=== PATIENT | female | born 1975 | race Caucasian/White ===

== ENCOUNTER 2017-05-20 19:17 | Emergency (ER) | payer MEDICAID ==
[~2017-05-20] VITALS: Ht 160 cm; Wt 88.0 kg
[~2017-05-20 19:17] MED LIST: ASPIR-TRIN325 MG PO; ATORVASTATIN CA80 MG PO; BACTRIM DS 8001 TAB PO; BISOPROLOL 5MG T5 MG PO; BUT/APAP/CAFF/C1 CAP PO; DILAUDID2 MG PO; DOCUSATE SODIU250 M1 PO; FLEXERIL10 MG PO; HUMALOG100 U/M1 SC; LEVOTHYROXIN0.125 MG PO; LIPITOR20 MG PO; LODINE200 MG PO; LOPRESSOR 25MG.25 M1 OR; METFORMIN 500M500 MG PO; NAPROSYN 500MG500 MG PO; NORCO 325 MG-101 TAB PO; ONDANSETRON4 M1 PO; PREDNISONE 20MG20 MG PO; PREVACID 30MG C30 M1 PO; PROCTOFOAM TP; REQUIP 1 MG TABL1 MG PO; TOPAMAX100 MG PO; ZANAFLEX4 MG NG
[2017-05-20] MEDS ORDERED: VITAMIN D50000 I1 PO (19:26)
[2017-05-20] MEDS ORDERED: LACTULOSE10 GM/153 PO (19:27)
[2017-05-20] MEDS ORDERED: PHENERGAN25 M3 PO (19:27)
[2017-05-20] MEDS ORDERED: VICODIN1 TAB PO (19:29)
[2017-05-20] MEDS ORDERED: LEVOTHYROXIN0.125 M1 PO (19:29)
[2017-05-20] MEDS ORDERED: DICLOFENAC SODI75 M2 PO (19:30)
[2017-05-20] MEDS ORDERED: GABAPENTIN 600600 MG PO (19:30)
[2017-05-20 19:34] LABS: LYMPH # 1.9 K/mm3 (0.7-4.5); LYMPH % 26.1 % (10-50.0)
[2017-05-20 19:44] LABS: HEMOGLOBIN 11.8 g/dL (12.2-16.2)
--- NOTE | 2017-05-20 19:50 | Emergency Room Report ---
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 STATES SHE TOOK VERAPAMIL ER 240 MG PO X 2 DAYS AND BISPROLOL 2.5 MG PO TODAY TRYIMG TO FET B/P DECREASED. 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 N Clinical Suspician of Infection? N Mental Status: 1 - Regular (Normal Baseline) Sepsis Risk:Low Sepsis Risk Have you (or family members/close friends) recently traveled outside the [place]? N If Yes, where/when: Have you had exposure to infectious disease within the past month? N TB? Other? Specify: Source patient, RN notes reviewed, RN/MD Exam Limitations no limitations Comment This is a 42-year-old female arriving to the emergency room with episode of chest pain, onset approximately 2 hours prior to arrival, described as pressure across anterior chest wall, associated with palpitations and shortness of breath, radiating to both shoulders.. Patient had a similar episode yesterday her receiving a phone call from elementary school social worker in relationship to her stepson. Patient has been very emotional since receiving this phone call, preoccupied with her blood pressure. Her chest pain yesterday was short-lived and resolved within minutes. Today it came back and it appears to be lasting longer. Patient she took her leftover blood pressure medications, Bisoprolol and Verapamil (which she is no longer on, at this time). Patient underwent the cardiac catheterization 2 years ago, no stents deployed, and was started on Crestor at that time. Today she is complaining with a headache and nausea as well. She has a history of chronic upper back pain as well as chronic neck pain, today presenting with RIGHT/LEFT shoulder pain as well. ALLERGIES Coded Allergies: No Known Allergies (11/05/16) Home Medications Active Scripts Aspirin (Aspir-Joslyn) 81 MG PO DAILY #15 ECT Prov: 05/12/15 Ondansetron Hydrochloride (Ondansetron Odt) 4 MG PO Q6HP PRN NAUSEA AND VOMITING #5 Ref 1 Prov: 11/07/16 Reported Medications Atorvastatin Calcium 80 MG PO DAILY #30 TIZANIDINE HCL (Zanaflex) 4 MG NG Q6HP PRN MUSCLE SPASMS ROPINIROLE HCL (Requip 1 Mg) 1 MG PO QHS Lansoprazole (Prevacid) 30 MG PO DAILY ERGOCALCIFEROL (VITAMIN D2) (Vitamin D2) 50,000 IUNITS PO DAILY #8 Lactulose 10 GM PO PRN PRN CONSTIPATION #450 PROMETHAZINE HCL (Phenergan 25MG Tab (Geq)) 25 MG PO Q6HP PRN N/V #30 Levothyroxine Sodium 0.125 MG PO DAILY #60 HYDROCODONE/ACETAMINOPHEN (Vicodin 5-300 MG Tablet) 1 TAB PO PRN PRN BACK PAIN Diclofenac Sodium 75 MG PO DAILY #60 Gabapentin (Gabapentin 600MG) 600 MG PO Q8 #120 (Earnest Biggs MD) Cardiac Chest Pain Chest pain indicative of cardiac No Timing/Duration this evening (Vincent Triplett MD) History Medical History General CAD? Yes Angina: Yes [place]: No Hypertension? Yes Hyperlipidemia? Yes CHF? No DVT? No PE? No COPD? Yes Asthma? Yes Anemia? Yes GERD? No Gastric ulcers? No GI Bleed? No Hernia? No Thyroid Problems? Yes Hypothyroidism? Yes CVA? No Seizures? Yes Diabetes? Yes Insulin Dependent: No Insulin Pump: No Home FSBS? Yes Renal Insuffiency? No End Stage Renal Disease? No UTI? Yes Stones? No BPH? No GB Disease: No Nephritic Syndrome? No Asplenia? No Hepatitis? No Sickle Cell Disease? No Arthritis? Yes Migraines? No Cataracts? No Glaucoma? No MRSA? Yes HIV? No TB? No Anxiety? Yes Depression? No Cancer? 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 LMP N/A Family History Family Hx Diabetes Yes CAD Yes Hypertension Yes Hyperlipidemia Yes Cancer Yes TB No Social History Smoking Hx Smoker: Current Every Day Smoker Tobacco: Yes Type Cigarettes Packs/day < 1 Pack Alcohol Alcohol: No (Earnest Biggs MD) Social History Drugs none (Vincent Triplett MD) Review of Systems All Other Systems Reviewed and Negative Cardiovascular chest pain, palpitations Psychiatric/Neurological headache (Earnest Biggs MD) Physical Exam Vital Signs Vital Signs Date Time Temp Pulse Resp B/P Pulse O2 O2 Flow FiO2 Ox Delivery Rate 05/20 2125 98.1 98 20 171/98 96 05/20 2056 98.1 72 20 143/95 97 05/20 1959 98.1 70 20 161/109 99 05/20 1957 20 05/20 1918 98.1 78 20 161/109 96 General Appearance normal appearance, WD/WN, no apparent distress Respiratory Status Yes: trachea midline, chest symmetrical, non tender chest. No: respiratory distress. Lung Sounds bilateral: normal breath sounds, lungs clear. Cardiovascular normal exam, regular rate/rhythm, no peripheral edema, no gallop, no JVD, no murmur, no rub, normal peripheral pulses Gastrointestinal normal bowel sounds, normal exam, non tender, soft, no organomegaly Extremities non-tender, normal range of motion, normal inspection Neurologic alert, campaign director II-XII nml as tested, normal exam, oriented x 3 Mental status normal mood/affect Skin intact, normal color, warm/dry (Earnest Biggs MD) Medical Decision Making LABS/Meds/Orders Pt receiving controlled substance in ED? No Comment 20:00-case signed out ot Dr Uziel brandon results and re-evaluation. Results/Orders Laboratory Tests 05/20/172119: Troponin I Pending 05/20/171919: Sodium 138, Potassium 3.7, Chloride 102, Carbon Dioxide 27, BUN 6 L, Creatinine 0.9, Estimated Creat Clear 112, Estimated GFR (MDRD) 68, Glucose 120 H, Calcium 9.3, Total Bilirubin 0.4, AST 34, ALT 52, Alkaline Phosphatase 114, Creatine Kinase 231 H, CK-MB (CK-2) Rel Index 0.4, CK and CKMB Interp 1.0, Troponin I < 0.02, B-Natriuretic Peptide 74, Total Protein 8.4 H, Albumin 4.0, Globulin 4.4 H, Albumin/Globulin Ratio 0.9 L, PT 10.7, INR 0.99, APTT 27.6, D-Dimer 645 *H, WBC 7.2, RBC 5.00, Hgb 11.8 L, Hct 39.9, MCV 79.7 L, RDW 18.1 H, Plt Count 273, MPV 9.9, Gran % 64.8, Gran # 4.7, Lymphocytes % 26.1, Monocytes % 5.0, Eosinophils % 3.3, Basophils % 0.8, Lymphocytes # 1.9, Monocytes # 0.4, Eosinophils # 0.2, Basophils # 0.1, PUBS MCHC 29.7 L, MCH 23.7 L Current Medication Orders Sig/Bakari Start time Last Medication Dose Route Stop Time Status Admin Ketorolac 30 MG ONCE ONE 05/20 2000 DC 05/20 Tromethamine IV 05/20 Ondansetron HCl 4 MG ONCE ONE 05/20 2000 DC 05/20 IV 05/20 Ketorolac 0 .STK-MED ONE 05/20 1954 DC Tromethamine .ROUTE Ondansetron HCl 0 .STK-MED ONE 05/20 1954 DC .ROUTE Aspirin 0 .STK-MED ONE 05/20 1937 DC .ROUTE Aspirin 325 MG ONCE ONE 05/20 1930 DC 05/20 PO 05/20 Nitroglycerin 0.4 MG [id number] PRN 05/20 1930 CAN SL Sodium Chloride 10 ML PRN PRN 05/20 1930 AC IV 05/21 1920 Orders Procedure Date/time Status TROPONIN I 05/20 2120 Active SERUM , QUAL 05/20 1921 Complete ELECTROCARDIOGRAM REQUEST 05/20 1920 Active CHEST-PORTABLE 05/20 1920 Active IV SALINE LOCK 05/20 1920 Active SALES AND SERVICE AGENT 05/20 1920 Active PARTIAL THROMBOPLASTIN TIME 05/20 1920 Complete PROTHROMBIN TIME 05/20 1920 Complete D-DIMER 05/20 1920 Complete COMPLETE METABOLIC PANEL 05/20 1920 Complete CBC WITH AUTO DIFF 05/20 1920 Complete CARDIAC ENZYMES 05/20 1920 Complete BRAIN NATRIURETIC PEPTIDE 05/20 1920 Complete CM/EKG CM/shearing shed hand Rhythm Normal Sinus Rhythm Rate 88 Ectopy No Comments No acute ischemic changes EKG rate, NSR, rhythm, no evid. of ischemic chgs, no ectopy, normal QRS, normal [place], normal EKG, no EKG for comparison, non-spec. ST/Twave chgs, ST elevation, ST depression, LBBB, RBBB, ectopy, abnormal Q waves XRAY/CT/US XRAY/CT/US XRAY chest XR interpretation by reviewed by me Xray Results no infiltrates, normal heart size, normal lung inflation andrez Comment No acute process (Earnest Biggs MD) Departure Departure Time of Disposition 1999 Clinical Impression Primary Impression: Chest pain Qualifiers: Chest pain type: unspecified Qualified Code: R07.9 - Chest pain, unspecified Condition STABLE Referrals DAIJA BARAHONA (Family) ED Critical Care Critical Care No (Earnest Biggs MD) Departure Disposition DC Home or Self Care(routine) Patient Instructions DI for Chest Pain Additional Instructions call pcp in am Discharge Counseling Counseled pt/family regarding diagnosis, test results, medications/RX, follow up needs (Vincent Triplett MD) at 2001 at 214
--- NOTE | 2017-05-20 19:50 | Emergency Room Report ---
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 STATES SHE TOOK VERAPAMIL ER 240 MG PO X 2 DAYS AND BISPROLOL 2.5 MG PO TODAY TRYIMG TO FET B/P DECREASED. 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 N Clinical Suspician of Infection? N Mental Status: 1 - Regular (Normal Baseline) Sepsis Risk:Low Sepsis Risk Have you (or family members/close friends) recently traveled outside the [place]? N If Yes, where/when: Have you had exposure to infectious disease within the past month? N TB? Other? Specify: Source patient, RN notes reviewed, RN/MD Exam Limitations no limitations Comment This is a 42-year-old female arriving to the emergency room with episode of chest pain, onset approximately 2 hours prior to arrival, described as pressure across anterior chest wall, associated with palpitations and shortness of breath, radiating to both shoulders.. Patient had a similar episode yesterday her receiving a phone call from social problems specialist in relationship to her stepson. Patient has been very emotional since receiving this phone call, preoccupied with her blood pressure. Her chest pain yesterday was short-lived and resolved within minutes. Today it came back and it appears to be lasting longer. Patient she took her leftover blood pressure medications, Bisoprolol and Verapamil (which she is no longer on, at this time). Patient underwent the cardiac catheterization 2 years ago, no stents deployed, and was started on Crestor at that time. Today she is complaining with a headache and nausea as well. She has a history of chronic upper back pain as well as chronic neck pain, today presenting with RIGHT/LEFT shoulder pain as well. ALLERGIES Coded Allergies: No Known Allergies (11/05/16) Home Medications Active Scripts Aspirin (Aspir-Joslyn) 81 MG PO DAILY #15 ECT Prov: 05/12/15 Ondansetron Hydrochloride (Ondansetron Odt) 4 MG PO Q6HP PRN NAUSEA AND VOMITING #5 Ref 1 Prov: 11/07/16 Reported Medications Atorvastatin Calcium 80 MG PO DAILY #30 TIZANIDINE HCL (Zanaflex) 4 MG NG Q6HP PRN MUSCLE SPASMS ROPINIROLE HCL (Requip 1 Mg) 1 MG PO QHS Lansoprazole (Prevacid) 30 MG PO DAILY ERGOCALCIFEROL (VITAMIN D2) (Vitamin D2) 50,000 IUNITS PO DAILY #8 Lactulose 10 GM PO PRN PRN CONSTIPATION #450 PROMETHAZINE HCL (Phenergan 25MG Tab (Geq)) 25 MG PO Q6HP PRN N/V #30 Levothyroxine Sodium 0.125 MG PO DAILY #60 HYDROCODONE/ACETAMINOPHEN (Vicodin 5-300 MG Tablet) 1 TAB PO PRN PRN BACK PAIN Diclofenac Sodium 75 MG PO DAILY #60 Gabapentin (Gabapentin 600MG) 600 MG PO Q8 #120 (Earnest Biggs MD) Cardiac Chest Pain Chest pain indicative of cardiac No Timing/Duration this evening (Vincent Triplett MD) History Medical History General CAD? Yes Angina: Yes [place]: No Hypertension? Yes Hyperlipidemia? Yes CHF? No DVT? No PE? No COPD? Yes Asthma? Yes Anemia? Yes GERD? No Gastric ulcers? No GI Bleed? No Hernia? No Thyroid Problems? Yes Hypothyroidism? Yes CVA? No Seizures? Yes Diabetes? Yes Insulin Dependent: No Insulin Pump: No Home FSBS? Yes Renal Insuffiency? No End Stage Renal Disease? No UTI? Yes Stones? No BPH? No GB Disease: No Nephritic Syndrome? No Asplenia? No Hepatitis? No Sickle Cell Disease? No Arthritis? Yes Migraines? No Cataracts? No Glaucoma? No MRSA? Yes HIV? No TB? No Anxiety? Yes Depression? No Cancer? 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 N/A Family History Family Hx Diabetes Yes CAD Yes Hypertension Yes Hyperlipidemia Yes Cancer Yes TB No Social History Smoking Hx Smoker: Current Every Day Smoker Tobacco: Yes Type Cigarettes Packs/day < 1 Pack Alcohol Alcohol: No (Earnest Biggs MD) Social History Drugs none (Vincent Triplett MD) Review of Systems All Other Systems Reviewed and Negative Cardiovascular chest pain, palpitations Psychiatric/Neurological headache (Earnest Biggs MD) Physical Exam Vital Signs Vital Signs Date Time Temp Pulse Resp B/P Pulse O2 O2 Flow FiO2 Ox Delivery Rate 05/20 2125 98.1 98 20 171/98 96 05/20 2056 98.1 72 20 143/95 97 05/20 1959 98.1 70 20 161/109 99 05/20 1957 20 05/20 1918 98.1 78 20 161/109 96 General Appearance normal appearance, WD/WN, no apparent distress Respiratory Status Yes: trachea midline, chest symmetrical, non tender chest. No: respiratory distress. Lung Sounds bilateral: normal breath sounds, lungs clear. Cardiovascular normal exam, regular rate/rhythm, no peripheral edema, no gallop, no JVD, no murmur, no rub, normal peripheral pulses Gastrointestinal normal bowel sounds, normal exam, non tender, soft, no organomegaly Extremities non-tender, normal range of motion, normal inspection Neurologic alert, newsroom intern II-XII nml as tested, normal exam, oriented x 3 Mental status normal mood/affect Skin intact, normal color, warm/dry (Earnest Biggs MD) Medical Decision Making LABS/Meds/Orders Pt receiving controlled substance in ED? No Comment 20:00-case signed out ot Dr Uziel brandon results and re-evaluation. Results/Orders Laboratory Tests 05/20/172119: Troponin I Pending 05/20/171919: Sodium 138, Potassium 3.7, Chloride 102, Carbon Dioxide 27, BUN 6 L, Creatinine 0.9, Estimated Creat Clear 112, Estimated GFR (MDRD) 68, Glucose 120 H, Calcium 9.3, Total Bilirubin 0.4, AST 34, ALT 52, Alkaline Phosphatase 114, Creatine Kinase 231 H, CK-MB (CK-2) Rel Index 0.4, CK and CKMB Interp 1.0, Troponin I < 0.02, B-Natriuretic Peptide 74, Total Protein 8.4 H, Albumin 4.0, Globulin 4.4 H, Albumin/Globulin Ratio 0.9 L, PT 10.7, INR 0.99, APTT 27.6, D-Dimer 645 *H, WBC 7.2, RBC 5.00, Hgb 11.8 L, Hct 39.9, MCV 79.7 L, RDW 18.1 H, Plt Count 273, MPV 9.9, Gran % 64.8, Gran # 4.7, Lymphocytes % 26.1, Monocytes % 5.0, Eosinophils % 3.3, Basophils % 0.8, Lymphocytes # 1.9, Monocytes # 0.4, Eosinophils # 0.2, Basophils # 0.1, PUBS MCHC 29.7 L, MCH 23.7 L Current Medication Orders Sig/Bakari Start time Last Medication Dose Route Stop Time Status Admin Ketorolac 30 MG ONCE ONE 05/20 2000 DC 05/20 Tromethamine IV 05/20 Ondansetron HCl 4 MG ONCE ONE 05/20 2000 DC 05/20 IV 05/20 Ketorolac 0 .STK-MED ONE 05/20 1954 DC Tromethamine .ROUTE Ondansetron HCl 0 .STK-MED ONE 05/20 1954 DC .ROUTE Aspirin 0 .STK-MED ONE 05/20 1937 DC .ROUTE Aspirin 325 MG ONCE ONE 05/20 1930 DC 05/20 PO 05/20 Nitroglycerin 0.4 MG [id number] PRN 05/20 1930 CAN SL Sodium Chloride 10 ML PRN PRN 05/20 1930 AC IV 05/21 1920 Orders Procedure Date/time Status TROPONIN I 05/20 2120 Active SERUM , QUAL 05/20 1921 Complete ELECTROCARDIOGRAM REQUEST 05/20 1920 Active CHEST-PORTABLE 05/20 1920 Active IV SALINE LOCK 05/20 1920 Active ENTRANCE GUARD 05/20 1920 Active PARTIAL THROMBOPLASTIN TIME 05/20 1920 Complete PROTHROMBIN TIME 05/20 1920 Complete D-DIMER 05/20 1920 Complete COMPLETE METABOLIC PANEL 05/20 1920 Complete CBC WITH AUTO DIFF 05/20 1920 Complete CARDIAC ENZYMES 05/20 1920 Complete BRAIN NATRIURETIC PEPTIDE 05/20 1920 Complete CM/EKG CM/automotive service technician Rhythm Normal Sinus Rhythm Rate 88 Ectopy No Comments No acute ischemic changes EKG rate, NSR, rhythm, no evid. of ischemic chgs, no ectopy, normal QRS, normal [place], normal EKG, no EKG for comparison, non-spec. ST/Twave chgs, ST elevation, ST depression, LBBB, RBBB, ectopy, abnormal Q waves XRAY/CT/US XRAY/CT/US XRAY chest XR interpretation by reviewed by me Xray Results no infiltrates, normal heart size, normal lung inflation andrez Comment No acute process (Earnest Biggs MD) Departure Departure Time of Disposition 1999 Clinical Impression Primary Impression: Chest pain Qualifiers: Chest pain type: unspecified Qualified Code: R07.9 - Chest pain, unspecified Condition STABLE Referrals DAIJA BARAHONA (Family) ED Critical Care Critical Care No (Earnest Biggs MD) Departure Disposition DC Home or Self Care(routine) Patient Instructions DI for Chest Pain Additional Instructions call pcp in am Discharge Counseling Counseled pt/family regarding diagnosis, test results, medications/RX, follow up needs (Vincent Triplett MD) at 2001 at 2146
[2017-05-20 19:52] LABS: BUN 6 mg/dL (7-18)
[2017-05-20 20:01] LABS: GFR (ESTIMATED) 68 ML/MIN (59-)
[2017-05-20 22:11] VITALS: BP 112/55
--- NOTE | 2017-05-21 05:32 | RADIOLOGY REPORT PS360 ---
CHEST-PORTABLE HISTORY: Chest pain pain ORDERING PHYSICIAN: Earnest Biggs MD PATIENT AGE: 42 years COMPARISON: 05/14/2015 FINDINGS: There is cardiomegaly without failure. There is increased density in the right lung base medially. While this could represent pericardial fat pad/summation artifact, one cannot exclude possibility of infiltrate/pneumonia. Upright PA and lateral chest may be of further value. No acute bony anomalies. IMPRESSION: 1. Cardiomegaly. 2. Possible right lower lobe infiltrate.
== END 2017-05-20 22:12 | disposition home or self-care (01) ==
LOC: ER 19:17
PROVIDERS: Emergency Medicine
DX: R07.9 Chest pain, unspecified (principal); I10 Essential (primary) hypertension; M54.6 Pain in thoracic spine; M54.2 Cervicalgia; I25.10 Atherosclerotic heart disease of native coronary artery without angina pectoris; E78.5 Hyperlipidemia, unspecified; E11.9 Type 2 diabetes mellitus without complications; Z72.0 Tobacco use; Z79.899 Other long term (current) drug therapy
CPT/HCPCS: J2405

== ENCOUNTER 2017-06-10 21:43 | Emergency (ER) | payer MEDICAID ==
[~2017-06-10] VITALS: Ht 160 cm; Wt 88.5 kg
[~2017-06-10 21:43] MED LIST changes: +DICLOFENAC SODI75 M2 PO; +GABAPENTIN 600600 MG PO; +LACTULOSE10 GM/153 PO; +LEVOTHYROXIN0.125 M1 PO; +PHENERGAN25 M3 PO; +VICODIN1 TAB PO; +VITAMIN D50000 I1 PO
--- NOTE | 2017-06-10 22:15 | Emergency Room Report ---
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 N Clinical Suspician of Infection? N Mental Status: 1 - Regular (Normal Baseline) Sepsis Risk:Low Sepsis Risk Have you (or family members/close friends) recently traveled outside the [place]? N If Yes, where/when: Have you had exposure to infectious disease within the past month? N TB? Other? Specify: Source patient, RN notes reviewed, old records Exam Limitations no limitations Comment pt with upper abd pain over the last few days with nausea but no melena or fever Cardiac Chest Pain Chest pain indicative of cardiac No Timing/Duration this evening Severity moderate ALLERGIES Coded Allergies: No Known Allergies (11/05/16) Home Medications Active Scripts Aspirin (Aspir-Joslyn) 81 MG PO DAILY #15 ECT Prov: 05/12/15 Ondansetron Hydrochloride (Ondansetron Odt) 4 MG PO Q6HP PRN NAUSEA AND VOMITING #5 Ref 1 Prov: 11/07/16 Reported Medications Atorvastatin Calcium 80 MG PO DAILY #30 TIZANIDINE HCL (Zanaflex) 4 MG NG Q6HP PRN MUSCLE SPASMS ROPINIROLE HCL (Requip 1 Mg) 1 MG PO QHS Lansoprazole (Prevacid) 30 MG PO DAILY ERGOCALCIFEROL (VITAMIN D2) (Vitamin D2) 50,000 IUNITS PO DAILY #8 Lactulose 10 GM PO PRN PRN CONSTIPATION #450 PROMETHAZINE HCL (Phenergan 25MG Tab (Geq)) 25 MG PO Q6HP PRN N/V #30 Levothyroxine Sodium 0.125 MG PO DAILY #60 HYDROCODONE/ACETAMINOPHEN (Vicodin 5-300 MG Tablet) 1 TAB PO PRN PRN BACK PAIN Diclofenac Sodium 75 MG PO DAILY #60 Gabapentin (Gabapentin 600MG) 600 MG PO Q8 #120 History Medical History General CAD? Yes Angina: Yes OK: No Hypertension? Yes Hyperlipidemia? Yes CHF? No DVT? No PE? No COPD? Yes Asthma? Yes Anemia? Yes GERD? No Gastric ulcers? No GI Bleed? No Hernia? No Thyroid Problems? Yes Hypothyroidism? Yes CVA? No Seizures? Yes Diabetes? Yes Insulin Dependent: No Insulin Pump: No Home FSBS? Yes Renal Insuffiency? No End Stage Renal Disease? No UTI? Yes Stones? No BPH? No GB Disease: No Nephritic Syndrome? No Asplenia? No Hepatitis? No Sickle Cell Disease? No Arthritis? Yes Migraines? No Cataracts? No Glaucoma? No MRSA? Yes HIV? No TB? No Anxiety? Yes Depression? No Cancer? 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 Respiratory denies cough, denies shortness of breath Cardiovascular see HPI, chest pain, denies palpitations, denies syncope Gastrointestinal see HPI, abdominal pain, denies diarrhea, nausea, vomiting Genitourinary denies: dysuria, frequency, hesitancy, hematuria. Musculoskeletal denies back pain, denies joint pain, denies joint swelling, denies neck pain Skin denies rash Psychiatric/Neurological denies headache, denies seizure Physical Exam Vital Signs Vital Signs Date Time Temp Pulse Resp B/P Pulse O2 O2 Flow FiO2 Ox Delivery Rate 06/10 2146 98.0 74 18 120/72 99 - WBC >12,000 or <4,000 or 10% bands? 2 or more SIRS Criteria Met? B/P:120/72 MAP:88 Creatinine >2.0? UA output<0.5ml/kg/hr for 2 hrs? Platelet count >100,000? Lactate >2.0mmol/1? INR >1.2 or PTT > than 60 sec? Evidence of Organ Dysfunction? Provider documented clinical suspician of infection? N Sepsis Criteria Count: 0 Sepsis Risk: Low Sepsis Risk General Appearance no apparent distress Eye Exam - bilateral eye PERRL, bilateral eye EOMI Ear, Nose, Throat normal ENT inspection Neck supple Respiratory Status No: respiratory distress. 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 No Results/Orders Laboratory Tests 06/10/17 2200: Sodium 137, Potassium 3.9, Chloride 102, Carbon Dioxide 27, BUN 8, Creatinine 0.8, Estimated Creat Clear 127, Estimated GFR (MDRD) 78, Glucose 107 H, Calcium 9.5, Total Bilirubin 0.4, AST 34, ALT 61, Alkaline Phosphatase 115, Creatine Kinase 55, CK-MB (CK-2) Rel Index 0.9, CK and CKMB Interp < 0.5, Troponin I < 0.02, Total Protein 7.9, Albumin 3.8, Globulin 4.1 H, Albumin/Globulin Ratio 0.9 L, Amylase 51, Lipase 168, WBC 9.9, RBC 4.96, Hgb 11.7 L, Hct 39.1, MCV 78.8 L, RDW 18.0 H, Plt Count 307, MPV 9.1, Gran % 64.9, Gran # 6.4, Lymphocytes % 27.3, Monocytes % 4.5, Eosinophils % 2.9, Basophils % 0.5, Lymphocytes # 2.7, Monocytes # 0.4, Eosinophils # 0.3, Basophils # 0.1, PUBS MCHC 29.9 L, MCH 23.5 L, Urine Color YELLOW, Urine Appearance CLEAR, Urine pH 7.0, Ur Specific Galva <= 1.005, Urine Protein NEGATIVE, Urine Ketones NEGATIVE, Urine Blood NEGATIVE, Urine Nitrate NEGATIVE, Urine Bilirubin NEGATIVE , Urine Urobilinogen 0.2, Ur Leukocyte Esterase NEGATIVE, Urine RBC NONE, Urine WBC OCC, Ur Squamous Epith Cells 10-20, Urine Renal Cells OCC, Urine Bacteria 1+ , Urine Glucose NEGATIVE Orders Procedure Date/time Status DIET-NOTHING BY MOUTH 06/[address] ABD & PELVIS W/O CONTRAST 06/10 2156 Active 12 LEAD EKG-BESSON (INITIAL) 06/10 2151 Active ELECTROCARDIOGRAM REQUEST 06/[address] SCAN REQ 06/10 2151 Complete CHEST(2 VIEWS-NOT PORTABLE) 06/10 2151 Active URINALYSIS/COMPLETE 06/10 2151 Complete LIPASE 06/10 2151 Complete COMPLETE METABOLIC PANEL 06/10 2151 Complete CBC WITH AUTO DIFF 06/10 2151 Complete CARDIAC ENZYMES 06/10 2151 Complete AMYLASE 06/10 2151 Complete CM/EKG CM/chicken catcher Rhythm Normal Sinus Rhythm EKG no evid. of ischemic chgs XRAY/CT/US XRAY/CT/US 1 XRAY chest XR interpretation by reviewed by me Xray Results normal/NAD XRAY/CT/US 2 CT abdomen, pelvis CT interpretation by discussed w/radiologist Time results known: 2237 CT Results abnormal (ovarian cyst) Departure Departure Time of Disposition 2238 Disposition DC Home or Self Care(routine) Clinical Impression Primary Impression: Abdominal pain Qualifiers: Abdominal location: epigastric Qualified Code: R10.13 - Epigastric pain Secondary Impressions: Chest pain Qualifiers: Chest pain type: unspecified Qualified Code: R07.9 - Chest pain, unspecified Ovarian cyst Qualifiers: Laterality: left Qualified Code: N83.202 - Unspecified ovarian cyst , left side Condition STABLE Referrals DAIJA BARAHONA (PCP/Family) Patient Instructions DI for Abdominal Pain-Adult Additional Instructions see your pcp for follow up Discharge Counseling Counseled pt/family regarding diagnosis, test results, follow up needs ED Critical Care Critical Care No at 2306
[2017-06-10 22:21] LABS: HEMOGLOBIN 11.7 g/dL (12.2-16.2); LYMPH # 2.7 K/mm3 (0.7-4.5); LYMPH % 27.3 % (10-50.0); URINE BILIRUBIN - DIPSTICK NEGATIVE (NEG); URINE BLOOD NEGATIVE (NEG)
[2017-06-10 22:44] LABS: BUN 8 mg/dL (7-18)
[2017-06-10 22:57] LABS: GFR (ESTIMATED) 78 ML/MIN (59-)
[2017-06-10 23:02] LABS: URINE RENAL CELLS OCC #/HPF
[2017-06-10 23:16] VITALS: BP 128/78
--- NOTE | 2017-06-11 04:27 | RADIOLOGY REPORT PS360 ---
CHEST(2 VIEWS-NOT PORTABLE) HISTORY: Shortness of breath sob ORDERING PHYSICIAN: Vincent Triplett MD PATIENT AGE: 42 years COMPARISON: 05/20/2017 FINDINGS: There is mild cardiomegaly without failure.. The lungs are clear without infiltrates, suspicious nodules, or pleural effusions. No acute bony abnormalities. Previously noted density in the right lung base medially is somewhat less apparent IMPRESSION: Mild cardiomegaly otherwise negative
--- NOTE | 2017-06-11 05:15 | RADIOLOGY REPORT PS360 ---
CT ABD PELVIS W/O CONTRAST CLINICAL INDICATION: Abdominal pain, epigastric pain with nausea ABD PAIN ORDERING PHYSICIAN: Vincent Triplett MD PATIENT AGE: 42 years COMPARISON: 12/01/2016 TECHNIQUE: Axial images obtained with sagittal and coronal reformats. PROCEDURE: Oral Contrast: None IV Contrast: None . FINDINGS: Lower thorax: No acute finding ABDOMEN: Liver: Fatty liver. Gallbladder: Cholecystectomy. No ductal dilatation Pancreas: No masses or peripancreatic fluid collections. Spleen: Unremarkable. Adrenals: 9 mm right adrenal nodule which may be due to an adenoma Kidneys/ureters: No masses. No renal calculi. No hydronephrosis. No perinephric fluid collections. No ureteral dilatation or obvious ureteral calculi. Stomach bowel: Sigmoid diverticulosis. No diverticulitis Appendix: No evidence of appendicitis. PELVIS: Reproductive: Unremarkable Bladder: Prior hysterectomy. There is a persistent 4 cm left ovarian cyst not significantly changed ABDOMEN & PELVIS: Peritoneum: No abnormal fluid collections. No obvious inflammatory changes. No free air. Lymph nodes: No enlarged lymph nodes apparent. Vasculature: No evidence of abdominal aortic aneurysm. No retroperitoneal hemorrhage evident. Bones: No acute fracture IMPRESSION: 1. 4 cm left ovarian cyst. 2. No significant change from 12/01/2016 with no acute finding
--- OUTSIDE RECORDS SUMMARY | 2017-06-12 18:26 | External Medical Summary Rpt | CCD ---
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 Role Phone [facility] # Unavailable Unavailable 4, [facility] # 4 Purpose Continuity of Care Document - 11-12-2009 through 2016 Problems Code Diagnosis DOS Provider Status D64.9 ANEMIA, UNSPECIFIED E11.9 TYPE 2 DIABETES MELLITUS WITHOUT COMPLICATIO NS E78.5 HYPERLIPIDE ALEJANDRA, UNSPECIFIED G44.209 TENSION-TYP E HEADACHE, UNSPECIFIED , NOT INTRACTABLE I10 ESSENTIAL (PRIMARY) HYPERTENSIO N M54.5 LOW BACK PAIN N39.0 URINARY TRACT INFECTION, SITE NOT SPECIFIED N94.9 UNSP [facility] W FEMALE GENITAL ORGANS AND MENSTRUAL CYCLE R07.89 OTHER CHEST PAIN R07.9 CHEST PAIN, UNSPECIFIED R10.2 PELVIC AND PERINEAL PAIN R10.9 UNSPECIFIED ABDOMINAL PAIN Z48.89 ENCOUNTER FOR OTHER SPECIFIED SURGICAL AFTERCARE Z72.0 TOBACCO USE Z91.14 PATIENT'S OTHER NONCOMPLIAN CE WITH MEDICATION REGIMEN Medications Na ND Rx Da Fi Fi Am Da Di Ph RX Ph St me C No te ll ll ou ys ag ar # ys at rm s nt no ma ic us Or Da si cy ia de te s n re d BR 60 10 10 1 36 12 TO 49 QU Ac OM 43 -2 -2 0. TA 23 AT ti FE 20 5- 8- 00 L 67 KE ve D 83 20 20 0 CA ME DM 71 11 11 RE YE 6 R CO PH BR UG AR AD H MA FO SY CY RD RU # A P 4 TI 00 09 10 5 18 30 TO 48 QU Ac ZA 37 -2 -2 0. TA 96 AT ti NI 80 7- 5- 00 L 86 KE ve DI 72 20 20 0 CA ME NE 41 11 11 RE YE 9 R HC PH BR L AR AD 4 MA FO MG CY RD # A TA 4 BL ET 00 10 10 0 12 30 TO 49 QU Ac 59 -2 -2 0. TA 22 AT ti 10 4- 5- 00 L 27 KE ve 85 20 20 0 CA ME 30 11 11 RE YE 5 R PH BR AR AD MA FO CY RD # A 4 TO 31 10 10 2 45 30 TO 49 QU Ac RS 72 -2 -2 .0 TA 23 AT ti EM 20 5- 5- 00 L 65 KE ve ID 53 20 20 CA ME E 10 11 11 RE YE 20 1 R PH BR MG AR AD MA FO TA CY RD BL # A ET 4 AZ 00 10 10 0 5. 5 TO 49 QU Ac IT 78 -2 -2 00 TA 23 AT ti HR 11 5- 5- 0 L 66 KE ve OM 94 20 20 CA ME YC 13 11 11 RE YE IN 3 R PH BR 50 AR AD 0 MA FO MG CY RD # A TA 4 BL ET BR 60 10 10 0 24 8 TO 49 QU Ac OM 43 -2 -2 0. TA 19 AT ti FE 20 0- 0- 00 L 49 KE ve D 83 20 20 0 CA ME DM 71 11 11 RE YE 6 R CO PH BR UG AR AD H MA FO SY CY RD RU # A P 4 AZ 00 10 10 0 3. 3 TO 49 QU Ac IT 78 -1 -1 00 TA 18 AT ti HR 11 9- 9- 0 L 87 KE ve OM 94 20 20 CA ME YC 13 11 11 RE YE IN 3 R PH BR 50 AR AD 0 MA FO MG CY RD # A TA 4 BL ET AM 64 10 10 3 60 30 TO 49 QU Ac IT 76 -1 -1 .0 TA 18 AT ti IZ 40 9- 9- 00 L 34 KE ve A 24 20 20 CA ME 24 06 11 11 RE YE 0 R MC PH BR G AR AD CA MA FO PS CY RD UL # A ES 4 LE 00 09 10 2 30 30 TO 48 QU Ac VO 37 -2 -1 .0 TA 93 AT ti TH 81 2- 9- 00 L 66 KE ve YR 81 20 20 CA ME OX 51 11 11 RE YE IN 0 R E PH BR 15 AR AD 0 MA FO MC CY RD G # A TA 4 BL ET CI 65 09 10 5 30 30 TO 48 QU Ac TA 16 -1 -1 .0 TA 82 AT ti LO 20 2- 9- 00 L 48 KE ve CA 05 20 20 CA ME AM 45 11 11 RE YE 0 R HB PH BR R AR AD [address] MG # A 4 TA BL ET NA 00 08 10 5 30 30 TO 48 QU Ac DO 37 -1 -1 .0 TA 52 AT ti LO 80 2- 9- 00 L 81 KE ve L 02 20 20 CA ME 20 80 11 11 RE YE 1 R MG PH BR AR AD TA MA FO BL CY RD ET # A 4 FL 00 08 10 5 60 30 TO 48 QU Ac EC 05 -1 -1 .0 TA 52 AT ti AI 40 2- 9- 00 L 79 KE ve NI 01 20 20 CA ME DE 12 11 11 RE YE 1 R AC PH BR ET AR AD AT MA FO E CY RD 10 # A 0 4 MG TA B PO 60 07 10 5 30 30 TO 48 QU Ac LY 25 -2 -1 .0 TA 38 AT ti -I 80 7- 9- 00 L 90 KE ve RO 18 20 20 CA ME N 60 11 11 RE YE 15 1 R 0 PH BR FO AR AD RT MA FO E CY RD CA # A PS 4 UL E PO 00 06 10 2 30 30 TO 48 QU Ac TA 78 -2 -1 .0 TA 07 AT ti SS 15 0- 9- 00 L 05 KE ve IU 72 20 20 CA ME M 01 11 11 RE YE CL 0 R PH BR ER AR AD MA FO [address] # A ME 4 Q TA BL ET TR 50 10 10 6 60 30 TO 49 QU Ac AZ 11 -0 -0 .0 TA 06 AT ti OD 10 6- 6- 00 L 81 KE ve ON 43 20 20 CA ME E 30 11 11 RE YE 50 3 R PH BR MG AR AD MA FO TA CY RD BL # A ET 4 DI 00 10 10 3 12 30 TO 49 QU Ac CY 59 -0 -0 0. TA 06 AT ti CL 10 6- 6- 00 L 83 KE ve OM 79 20 20 0 CA ME IN 41 11 11 RE YE E 0 R 10 PH BR AR AD MG MA FO CY RD CA # A PS 4 UL E DO 00 04 10 5 60 30 TO 47 QU Ac XE 37 -1 -0 .0 TA 48 AT ti PI 86 8- 6- 00 L 15 KE ve N 41 20 20 CA ME 10 00 11 11 RE YE 0 1 R MG PH BR AR AD CA MA FO PS CY RD UL # A E 4 AD 00 06 10 5 60 30 TO 47 QU Ac VA 17 -0 -0 .0 TA 97 AT ti IR 30 9- 6- 00 L 73 KE ve 69 20 20 CA ME 10 50 11 11 RE YE 0- 0 R 50 PH BR AR AD DI MA FO SK CY RD US # A 4 CE 45 06 10 5 30 30 TO 47 QU Ac TI 80 -0 -0 .0 TA 97 AT ti RI 20 9- 6- 00 L 74 KE ve ZI 91 20 20 CA ME NE 98 11 11 RE YE 7 R HC PH BR L AR AD [address] MG # A 4 TA BL ET NA 68 07 10 5 60 30 TO 48 QU Ac CA 46 -1 -0 .0 TA 26 AT ti OX 20 2- 6- 00 L 10 KE ve EN 19 20 20 CA ME 00 11 11 RE YE 50 5 R 0 PH BR MG AR AD MA FO TA CY RD BL # A ET 4 ON 53 07 10 2 10 25 TO 48 QU Ac ET 88 -2 -0 0. TA 38 AT ti OU 50 7- 6- 00 L 91 KE ve CH 24 20 20 0 CA ME 45 11 11 RE YE UL 0 R TR PH BR A AR AD TE MA FO ST CY RD # A ST 4 RI PS LA 55 10 10 6 30 30 TO 49 QU Ac NS 11 -0 -0 .0 TA 06 AT ti OP 10 6- 6- 00 L 79 KE ve RA 39 20 20 CA ME ZO 90 11 11 RE YE LE [address] AR AD MA FO [address] # A MG 4 CA PS UL E DI 00 10 10 0 12 30 TO 49 QU Ac AZ 59 -0 -0 0. TA 04 AT ti EP 15 5- 5- 00 L 67 KE ve AM 62 20 20 0 CA ME 01 11 11 RE YE 10 0 R PH BR MG AR AD MA FO TA CY RD BL # A ET 4 BE 68 09 09 0 30 10 TO 49 QU Ac NZ 38 -3 -3 .0 TA 00 AT ti ON 20 0- 0- 00 L 59 KE ve AT 24 20 20 CA ME AT 80 11 11 RE YE E 1 R 20 PH BR 0 AR AD MG MA FO CY RD CA # A PS 4 UL E CE 68 09 09 0 20 10 TO 49 QU Ac FU 18 -3 -3 .0 TA 00 AT ti RO 00 0- 0- 00 L 57 KE ve XI 30 20 20 CA ME ME 36 11 11 RE YE 0 R AX PH BR ET AR AD IL MA FO CY RD 50 # A 0 4 MG TA B TO 31 07 09 2 30 30 TO 48 QU Ac RS 72 -2 -2 .0 TA 38 AT ti EM 20 7- 9- 00 L 89 KE ve ID 53 20 20 CA ME E 10 11 11 RE YE 20 1 R PH BR MG AR AD MA FO TA CY RD BL # A ET 4 00 09 09 0 12 30 TO 48 QU Ac 59 -2 -2 0. TA 96 AT ti 10 7- 7- 00 L 89 KE ve 85 20 20 0 CA ME 30 11 11 RE YE 5 R PH BR AR AD MA FO CY RD # A 4 TI 00 09 09 5 18 30 TO 48 QU Ac ZA 18 -2 -2 0. TA 96 AT ti NI 54 7- 7- 00 L 86 KE ve DI 40 20 20 0 CA ME NE 01 11 11 RE YE 0 R HC PH BR L AR AD 4 MA FO MG CY RD # A TA 4 BL ET GA 53 09 09 2 90 30 TO 48 QU Ac BA 74 -2 -2 .0 TA 96 AT ti PE 60 7- 7- 00 L 85 KE ve NT 10 20 20 CA ME IN 30 11 11 RE YE 5 R 40 PH BR 0 AR AD MG MA FO CY RD CA # A PS 4 UL E LE 00 09 09 2 30 30 TO 48 QU Ac VO 37 -2 -2 .0 TA 93 AT ti TH 81 2- 2- 00 L 66 KE ve YR 81 20 20 CA ME OX 51 11 11 RE YE IN 0 R E PH BR 15 AR AD 0 MA FO MC CY RD G # A TA 4 BL ET FL 00 08 09 2 16 30 TO 48 QU Ac UT 05 -2 -2 .0 TA 62 AT ti IC 43 3- 1- 00 L 33 KE ve 27 20 20 CA ME ON 09 11 11 RE YE E 9 R CA PH BR OP AR AD MA FO [address] # A MC 4 G SP RA Y NA 00 08 09 5 30 30 TO 48 QU Ac DO 37 -1 -2 .0 TA 52 AT ti LO 80 2- 1- 00 L 81 KE ve L 02 20 20 CA ME 20 80 11 11 RE YE 1 R MG PH BR AR AD TA MA FO BL CY RD ET # A 4 PO 60 07 09 5 30 30 TO 48 QU Ac LY 25 -2 -2 .0 TA 38 AT ti -I 80 7- 1- 00 L 90 KE ve RO 18 20 20 CA ME N 60 11 11 RE YE 15 1 R 0 PH BR FO AR AD RT MA FO E CY RD CA # A PS 4 UL E AM 64 07 09 2 60 30 TO 48 QU Ac IT 76 -2 -2 .0 TA 34 AT ti IZ 40 1- 1- 00 L 58 KE ve A 24 20 20 CA ME 24 06 11 11 RE YE 0 R MC PH BR G AR AD CA MA FO PS CY RD UL # A ES 4 PO 00 07 09 2 30 30 TO 48 QU Ac TA 78 -1 -1 .0 TA 26 AT ti SS 15 2- 7- 00 L 06 KE ve IU 72 20 20 CA ME M 01 11 11 RE YE CL 0 R PH BR ER AR AD MA FO [address] # A ME 4 Q TA BL ET FL 00 04 09 5 60 30 TO 47 BR Ac EC 05 -2 -1 .0 TA 57 OW ti AI 40 7- 7- 00 L 94 NS ve NI 01 20 20 CA TE DE 12 11 11 RE IN 1 AC PH SH ET AR EL AT MA DO E CY N 10 # 0 4 MG TA B PE 00 09 09 0 60 1 TO 48 QU Ac RM 47 -1 -1 .0 TA 82 AT ti ET 25 2- 2- 00 L 47 KE ve HR 24 20 20 CA ME IN 26 11 11 RE YE 9 R 1% PH BR AR AD LO MA FO TI CY RD ON # A 4 CI 65 09 09 5 30 30 TO 48 QU Ac TA 16 -1 -1 .0 TA 82 AT ti LO 20 2- 2- 00 L 48 KE ve CA 05 20 20 CA ME AM 45 11 11 RE YE 0 R HB PH BR R AR AD [address] MG # A 4 TA BL ET ON 53 07 09 2 10 25 TO 48 QU Ac ET 88 -2 -1 0. TA 38 AT ti OU 50 7- 0- 00 L 91 KE ve CH 24 20 20 0 CA ME 45 11 11 RE YE UL 0 R TR PH BR A AR AD TE MA FO ST CY RD # A ST 4 RI PS AD 00 06 09 5 60 30 TO 47 QU Ac VA 17 -0 -0 0. TA 97 AT ti IR 30 9- 6- 00 L 73 KE ve 69 20 20 0 CA ME 10 50 11 11 RE YE 0- 0 R 50 PH BR AR AD DI MA FO SK CY RD US # A 4 DI 00 07 09 2 12 30 TO 48 QU Ac CY 59 -1 -0 0. TA 26 AT ti CL 10 2- 6- 00 L 08 KE ve OM 79 20 20 0 CA ME IN 41 11 11 RE YE E 0 R 10 PH BR AR AD MG MA FO CY RD CA # A PS 4 UL E NA 68 07 09 5 60 30 TO 48 QU Ac CA 46 -1 -0 .0 TA 26 AT ti OX 20 2- 6- 00 L 10 KE ve EN 19 20 20 CA ME 00 11 11 RE YE 50 5 R 0 PH BR MG AR AD MA FO TA CY RD BL # A ET 4 TR 50 12 09 5 60 30 TO 46 QU Ac AZ 11 -2 -0 .0 TA 35 AT ti OD 10 9- 6- 00 L 46 KE ve ON 43 20 20 CA ME E 30 10 11 RE YE 50 3 R PH BR MG AR AD MA FO TA CY RD BL # A ET 4 TI 00 04 09 5 90 30 TO 47 QU Ac ZA 18 -1 -0 .0 TA 48 AT ti NI 54 8- 6- 00 L 13 KE ve DI 40 20 20 CA ME NE 01 11 11 RE YE 0 R HC PH BR L AR AD 4 MA FO MG CY RD # A TA 4 BL ET DO 00 04 09 5 60 30 TO 47 QU Ac XE 37 -1 -0 .0 TA 48 AT ti PI 86 8- 6- 00 L 15 KE ve N 41 20 20 CA ME 10 00 11 11 RE YE 0 1 R MG PH BR AR AD CA MA FO PS CY RD UL # A E 4 LA 55 04 09 5 30 30 TO 47 QU Ac NS 11 -1 -0 .0 TA 48 AT ti OP 10 8- 6- 00 L 17 KE ve RA 39 20 20 CA ME ZO 90 11 11 RE YE LE [address] AR AD MA FO [address] # A MG 4 CA PS UL E CI 65 04 09 5 15 30 TO 47 QU Ac TA 16 -1 -0 .0 TA 48 AT ti LO 20 8- 6- 00 L 19 KE ve CA 05 20 20 CA ME AM 45 11 11 RE YE 0 R HB PH BR R AR AD [address] MG # A 4 TA BL ET CE 45 06 09 5 30 30 TO 47 QU Ac TI 80 -0 -0 .0 TA 97 AT ti RI 20 9- 6- 00 L 74 KE ve ZI 91 20 20 CA ME NE 98 11 11 RE YE 7 R HC PH BR L AR AD [address] MG # A 4 TA BL ET GA 53 09 09 3 90 30 TO 48 QU Ac BA 74 -0 -0 .0 TA 74 AT ti PE 60 6- 6- 00 L 73 KE ve NT 10 20 20 CA ME IN 20 11 11 RE YE 5 R 30 PH BR 0 AR AD MG MA FO CY RD CA # A PS 4 UL E DI 00 08 09 0 12 30 TO 48 QU Ac AZ 59 -2 -0 0. TA 62 AT ti EP 15 3- 6- 00 L 52 KE ve AM 62 20 20 0 CA ME 01 11 11 RE YE 10 0 R PH BR MG AR AD MA FO TA CY RD BL # A ET 4 FU 00 07 09 5 45 30 TO 48 QU Ac RO 78 -1 -0 .0 TA 26 AT ti SE 11 2- 6- 00 L 11 KE ve MT 96 20 20 CA ME DE 61 11 11 RE YE 0 R 40 PH BR AR AD MG MA FO CY RD TA # A BL 4 ET LE 00 04 09 5 30 30 TO 47 PA Ac VO 52 -1 -0 .0 TA 49 TE ti TH 71 9- 6- 00 L 91 L ve YR 34 20 20 CA OX 31 11 11 RE RA IN 0 L E PH 75 AR MA MC CY G # TA 4 BL ET MA 51 08 08 0 59 1 TO 48 QU Ac LA 67 -3 -3 .0 TA 69 AT ti TH 25 0- 0- 00 L 42 KE ve IO 27 20 20 CA ME N 70 11 11 RE YE 0. 4 R 5% PH BR AR AD LO MA FO TI CY RD ON # A 4 00 08 08 0 12 30 TO 48 QU Ac 59 -2 -2 0. TA 62 AT ti 10 3- 6- 00 L 53 KE ve 85 20 20 0 CA ME 30 11 11 RE YE 5 R PH BR AR AD MA FO CY RD # A 4 AM 00 08 08 0 20 10 TO 48 QU Ac OX 78 -2 -2 .0 TA 62 AT ti IC 15 3- 3- 00 L 31 KE ve IL 06 20 20 CA ME LI 10 11 11 RE YE N 1 R 87 PH BR 5 AR AD MG MA FO CY RD TA # A BL 4 ET MU 45 08 08 0 22 7 TO 48 QU Ac PI 80 -2 -2 .0 TA 62 AT ti RO 20 3- 3- 00 L 32 KE ve CI 11 20 20 CA ME N 22 11 11 RE YE 2% 2 R PH BR OI AR AD NT MA FO ME CY RD NT # A 4 FL 00 08 08 2 16 30 TO 48 QU Ac UT 05 -2 -2 .0 TA 62 AT ti IC 43 3- 3- 00 L 33 KE ve 27 20 20 CA ME ON 09 11 11 RE YE E 9 R CA PH BR OP AR AD MA FO [address] # A MC 4 G SP RA Y FL 00 08 08 0 2. 5 TO 48 QU Ac UC 17 -2 -2 00 TA 62 AT ti ON 25 3- 3- 0 L 34 KE ve AZ 41 20 20 CA ME OL 21 11 11 RE YE E 1 R 15 PH BR 0 AR AD MG MA FO CY RD TA # A BL 4 ET AM 64 07 08 2 60 30 TO 48 QU Ac IT 76 -2 -2 .0 TA 34 AT ti IZ 40 1- 2- 00 L 58 KE ve A 24 20 20 CA ME 24 06 11 11 RE YE 0 R MC PH BR G AR AD CA MA FO PS CY RD UL # A ES 4 MA 51 08 08 0 59 1 TO 48 QU Ac LA 67 -1 -1 .0 TA 57 AT ti TH 25 7- 7- 00 L 09 KE ve IO 27 20 20 CA ME N 70 11 11 RE YE 0. 4 R 5% PH BR AR AD LO MA FO TI CY RD ON # A 4 FL 00 04 08 5 60 30 TO 47 BR Ac EC 05 -2 -1 .0 TA 57 OW ti AI 40 7- 5- 00 L 94 NS ve NI 01 20 20 CA TE DE 12 11 11 RE IN 1 AC PH SH ET AR EL AT MA DO E CY N 10 # 0 4 MG TA B 00 06 08 2 14 32 TO 47 QU Ac 59 -0 -1 .6 TA 97 AT ti 70 9- 5- 99 L 71 KE ve 01 20 20 CA ME 31 11 11 RE YE 4 R PH BR AR AD MA FO CY RD # A 4 PO 00 07 08 2 30 30 TO 48 QU Ac TA 78 -1 -1 .0 TA 26 AT ti SS 15 2- 5- 00 L 06 KE ve IU 72 20 20 CA ME M 01 11 11 RE YE CL 0 R PH BR ER AR AD MA FO [address] # A ME 4 Q TA BL ET NA 00 08 08 5 30 30 TO 48 QU Ac DO 37 -1 -1 .0 TA 52 AT ti LO 80 2- 5- 00 L 81 KE ve L 02 20 20 CA ME 20 80 11 11 RE YE 1 R MG PH BR AR AD TA MA FO BL CY RD ET # A 4 PO 60 07 08 5 30 30 TO 48 QU Ac LY 25 -2 -1 .0 TA 38 AT ti -I 80 7- 1- 00 L 90 KE ve RO 18 20 20 CA ME N 60 11 11 RE YE 15 1 R 0 PH BR FO AR AD RT MA FO E CY RD CA # A PS 4 UL E CH 00 08 08 0 47 15 TO 48 IS Ac LO 11 -1 -1 3. TA 51 ON ti RH 62 0- 0- 00 L 44 ve EX 00 20 20 0 CA DA ID 11 11 11 RE IN 6 D E PH E 0. AR 12 MA % CY RI # NS 4 E LE 00 04 08 5 30 30 TO 47 PA Ac VO 52 -1 -0 .0 TA 49 TE ti TH 71 9- 8- 00 L 91 L ve YR 34 20 20 CA OX 31 11 11 RE RA IN 0 L E PH 75 AR MA MC CY G # TA 4 BL ET TI 00 04 08 5 90 30 TO 47 QU Ac ZA 18 -1 -0 .0 TA 48 AT ti NI 54 8- 8- 00 L 13 KE ve DI 40 20 20 CA ME NE 01 11 11 RE YE 0 R HC PH BR L AR AD 4 MA FO MG CY RD # A TA 4 BL ET DO 00 04 08 5 60 30 TO 47 QU Ac XE 37 -1 -0 .0 TA 48 AT ti PI 86 8- 8- 00 L 15 KE ve N 41 20 20 CA ME 10 00 11 11 RE YE 0 1 R MG PH BR AR AD CA MA FO PS CY RD UL # A E 4 LA 55 04 08 5 30 30 TO 47 QU Ac NS 11 -1 -0 .0 TA 48 AT ti OP 10 8- 8- 00 L 17 KE ve RA 39 20 20 CA ME ZO 90 11 11 RE YE LE [address] AR AD MA FO [address] # A MG 4 CA PS UL E CI 65 04 08 5 15 30 TO 47 QU Ac TA 16 -1 -0 .0 TA 48 AT ti LO 20 8- 8- 00 L 19 KE ve CA 05 20 20 CA ME AM 45 11 11 RE YE 0 R HB PH BR R AR AD [address] MG # A 4 TA BL ET AD 00 06 08 5 60 30 TO 47 QU Ac VA 17 -0 -0 .0 TA 97 AT ti IR 30 9- 8- 00 L 73 KE ve 69 20 20 CA ME 10 50 11 11 RE YE 0- 0 R 50 PH BR AR AD DI MA FO SK CY RD US # A 4 CE 45 06 08 5 30 30 TO 47 QU Ac TI 80 -0 -0 .0 TA 97 AT ti RI 20 9- 8- 00 L 74 KE ve ZI 91 20 20 CA ME NE 98 11 11 RE YE 7 R HC PH BR L AR AD [address] MG # A 4 TA BL ET GA 53 06 08 2 90 30 TO 48 QU Ac BA 74 -1 -0 .0 TA 00 AT ti PE 60 3- 8- 00 L 40 KE ve NT 10 20 20 CA ME IN 20 11 11 RE YE 5 R 30 PH BR 0 AR AD MG MA FO CY RD CA # A PS 4 UL E DI 00 07 08 2 12 30 TO 48 QU Ac CY 59 -1 -0 0. TA 26 AT ti CL 10 2- 8- 00 L 08 KE ve OM 79 20 20 0 CA ME IN 41 11 11 RE YE E 0 R 10 PH BR AR AD MG MA FO CY RD CA # A PS 4 UL E NA 68 07 08 5 60 30 TO 48 QU Ac CA 46 -1 -0 .0 TA 26 AT ti OX 20 2- 8- 00 L 10 KE ve EN 19 20 20 CA ME 00 11 11 RE YE 50 5 R 0 PH BR MG AR AD MA FO TA CY RD BL # A ET 4 FU 00 07 08 5 45 30 TO 48 QU Ac RO 78 -1 -0 .0 TA 26 AT ti SE 11 2- 8- 00 L 11 KE ve MT 96 20 20 CA ME DE 61 11 11 RE YE 0 R 40 PH BR AR AD MG MA FO CY RD TA # A BL 4 ET DI 00 08 08 0 12 30 TO 48 QU Ac AZ 59 -0 -0 0. TA 49 AT ti EP 15 8- 8- 00 L 19 KE ve AM 62 20 20 0 CA ME 01 11 11 RE YE 10 0 R PH BR MG AR AD MA FO TA CY RD BL # A ET 4 TR 50 12 08 5 60 30 TO 46 QU Ac AZ 11 -2 -0 .0 TA 35 AT ti OD 10 9- 8- 00 L 46 KE ve ON 43 20 20 CA ME E 30 10 11 RE YE 50 3 R PH BR MG AR AD MA FO TA CY RD BL # A ET 4 IB 55 05 08 5 90 22 TO 47 QU Ac UP 11 -1 -0 .0 TA 75 AT ti RO 10 6- 3- 00 L 24 KE ve FE 68 20 20 CA ME N 40 11 11 RE YE 80 5 R 0 PH BR MG AR AD MA FO TA CY RD BL # A ET 4 ON 53 07 07 2 10 25 TO 48 QU Ac ET 88 -2 -2 0. TA 34 AT ti OU 50 1- 7- 00 L 63 KE ve CH 14 20 20 0 CA ME 30 11 11 RE YE DE 1 R LI PH BR CA AR AD MA FO [address] G # A LA 4 NC ET S LE 00 07 07 5 30 30 TO 48 QU Ac VO 52 -2 -2 .0 TA 38 AT ti TH 71 7- 7- 00 L 88 KE ve YR 34 20 20 CA ME OX 51 11 11 RE YE IN 0 R E PH BR 10 AR AD 0 MA FO MC CY RD G # A TA 4 BL ET TO 31 07 07 2 30 30 TO 48 QU Ac RS 72 -2 -2 .0 TA 38 AT ti EM 20 7- 7- 00 L 89 KE ve ID 53 20 20 CA ME E 10 11 11 RE YE 20 1 R PH BR MG AR AD MA FO TA CY RD BL # A ET 4 ON 07 07 2 10 25 TO 48 QU Ac ET 88 -2 -2 0. TA 38 AT ti OU 50 7- 7- 00 L 91 KE ve CH 24 20 20 0 CA ME 45 11 11 RE YE UL 0 R TR PH BR A AR AD TE MA FO ST CY RD # A ST 4 RI PS AM 64 07 07 2 60 30 TO 48 QU Ac IT 76 -2 -2 .0 TA 34 AT ti IZ 40 1- 1- 00 L 58 KE ve A 24 20 20 CA ME 24 06 11 11 RE YE 0 R MC PH BR G AR AD CA MA FO PS CY RD UL # A ES 4 TO 31 07 07 2 15 30 TO 48 QU Ac RS 72 -2 -2 .0 TA 34 AT ti EM 20 1- 1- 00 L 57 KE ve ID 53 20 20 CA ME E 10 11 11 RE YE 20 1 R PH BR MG AR AD MA FO TA CY RD BL # A ET 4 HY 00 07 07 2 90 30 TO [address] 37 -2 -2 .0 TA 34 AT ti OX 82 1- 1- 00 L 56 KE ve YZ 58 20 20 CA ME IN 71 11 11 RE YE E 0 R HC PH BR L AR AD [address] MG # A 4 TA BL ET NA 00 04 07 5 30 30 TO 47 BR Ac DO 37 -2 -1 .0 TA 57 OW ti LO 80 7- 8- 00 L 95 NS ve L 02 20 20 CA TE 20 80 11 11 RE IN 1 MG PH SH AR EL TA MA DO BL CY N ET # 4 FL 00 04 07 5 60 30 TO 47 BR Ac EC 05 -2 -1 .0 TA 57 OW ti AI 40 7- 8- 00 L 94 NS ve NI 01 20 20 CA TE DE 12 11 11 RE IN 1 AC PH SH ET AR EL AT MA DO E CY N 10 # 0 4 MG TA B PO 00 07 07 2 30 30 TO 48 QU Ac TA 78 -1 -1 .0 TA 26 AT ti SS 15 2- 8- 00 L 06 KE ve IU 72 20 20 CA ME M 01 11 11 RE YE CL 0 R PH BR ER AR AD MA FO [address] # A ME 4 Q TA BL ET DI 00 07 07 0 12 30 TO 48 QU Ac AZ 59 -1 -1 0. TA 26 AT ti EP 15 2- 2- 00 L 29 KE ve AM 62 20 20 0 CA ME 01 11 11 RE YE 10 0 R PH BR MG AR AD MA FO TA CY RD BL # A ET 4 DI 00 07 07 2 12 30 TO 48 QU Ac CY 59 -1 -1 0. TA 26 AT ti CL 10 2- 2- 00 L 08 KE ve OM 79 20 20 0 CA ME IN 41 11 11 RE YE E 0 R 10 PH BR AR AD MG MA FO CY RD CA # A PS 4 UL E NA 68 07 07 5 60 30 TO 48 QU Ac CA 46 -1 -1 .0 TA 26 AT ti OX 20 2- 2- 00 L 10 KE ve EN 19 20 20 CA ME 00 11 11 RE YE 50 5 R 0 PH BR MG AR AD MA FO TA CY RD BL # A ET 4 FU 00 07 07 5 45 30 TO 48 QU Ac RO 78 -1 -1 .0 TA 26 AT ti SE 11 2- 2- 00 L 11 KE ve MT 96 20 20 CA ME DE 61 11 11 RE YE 0 R 40 PH BR AR AD MG MA FO CY RD TA # A BL 4 ET 00 07 07 0 12 30 TO 48 QU Ac 59 -1 -1 0. TA 26 AT ti 10 2- 2- 00 L 28 KE ve 38 20 20 0 CA ME 70 11 11 RE YE 5 R PH BR AR AD MA FO CY RD # A 4 AD 00 06 07 5 60 30 TO 47 QU Ac VA 17 -0 -1 .0 TA 97 AT ti IR 30 9- 1- 00 L 73 KE ve 69 20 20 CA ME 10 50 11 11 RE YE 0- 0 R 50 PH BR AR AD DI MA FO SK CY RD US # A 4 CE 45 06 07 5 30 30 TO 47 QU Ac TI 80 -0 -1 .0 TA 97 AT ti RI 20 9- 1- 00 L 74 KE ve ZI 91 20 20 CA ME NE 98 11 11 RE YE 7 R HC PH BR L AR AD [address] MG # A 4 TA BL ET GA 53 06 07 2 90 30 TO 48 QU Ac BA 74 -1 -1 .0 TA 00 AT ti PE 60 3- 1- 00 L 40 KE ve NT 10 20 20 CA ME IN 20 11 11 RE YE 5 R 30 PH BR 0 AR AD MG MA FO CY RD CA # A PS 4 UL E TI 00 04 07 5 90 30 TO 47 QU Ac ZA 18 -1 -1 .0 TA 48 AT ti NI 54 8- 1- 00 L 13 KE ve DI 40 20 20 CA ME NE 01 11 11 RE YE 0 R HC PH BR L AR AD 4 MA FO MG CY RD # A TA 4 BL ET DO 00 04 07 5 60 30 TO 47 QU Ac XE 37 -1 -1 .0 TA 48 AT ti PI 86 8- 1- 00 L 15 KE ve N 41 20 20 CA ME 10 00 11 11 RE YE 0 1 R MG PH BR AR AD CA MA FO PS CY RD UL # A E 4 LA 55 04 07 5 30 30 TO 47 QU Ac NS 11 -1 -1 .0 TA 48 AT ti OP 10 8- 1- 00 L 17 KE ve RA 39 20 20 CA ME ZO 90 11 11 RE YE LE [address] AR AD MA FO [address] # A MG 4 CA PS UL E CI 65 04 07 5 15 30 TO 47 QU Ac TA 16 -1 -1 .0 TA 48 AT ti LO 20 8- 1- 00 L 19 KE ve CA 05 20 20 CA ME AM 45 11 11 RE YE 0 R HB PH BR R AR AD [address] MG # A 4 TA BL ET IB 55 05 07 5 90 22 TO 47 QU Ac UP 11 -1 -1 .0 TA 75 AT ti RO 10 6- 1- 00 L 24 KE ve FE 68 20 20 CA ME N 40 11 11 RE YE 80 5 R 0 PH BR MG AR AD MA FO TA CY RD BL # A ET 4 00 06 07 2 14 32 TO 47 QU Ac 59 -0 -1 .6 TA 97 AT ti 70 9- 1- 99 L 71 KE ve 01 20 20 CA ME 31 11 11 RE YE 4 R PH BR AR AD MA FO CY RD # A 4 TR 50 12 07 5 60 30 TO 46 QU Ac AZ 11 -2 -1 .0 TA 35 AT ti OD 10 9- 1- 00 L 46 KE ve ON 43 20 20 CA ME E 30 10 11 RE YE 50 3 R PH BR MG AR AD MA FO TA CY RD BL # A ET 4 LE 00 04 07 5 30 30 TO 47 PA Ac VO 52 -1 -1 .0 TA 49 TE ti TH 71 9- 1- 00 L 91 L ve YR 34 20 20 CA OX 31 11 11 RE RA IN 0 L E PH 75 AR MA MC CY G # TA 4 BL ET PO 00 06 06 2 30 30 TO 48 QU Ac TA 78 -2 -2 .0 TA 07 AT ti SS 15 0- 0- 00 L 05 KE ve IU 72 20 20 CA ME M 01 11 11 RE YE CL 0 R PH BR ER AR AD MA FO [address] # A ME 4 Q TA BL ET FU 00 06 06 2 30 30 TO 48 QU Ac RO 78 -2 -2 .0 TA 07 AT ti SE 11 0- 0- 00 L 04 KE ve MT 96 20 20 CA ME DE 61 11 11 RE YE 0 R 40 PH BR AR AD MG MA FO CY RD TA # A BL 4 ET SMITH 00 06 06 0 20 10 TO 48 QU Ac LF 60 -2 -2 .0 TA 07 AT ti AM 35 0- 0- 00 L 03 KE ve ET 78 20 20 CA ME HO 12 11 11 RE YE XA 8 R ZO PH BR LE AR AD -T MA FO MP CY RD # A DS 4 TA BL ET MU 45 06 06 0 22 30 TO 48 QU Ac PI 80 -2 -2 .0 TA 07 AT ti RO 20 0- 0- 00 L 02 KE ve CI 11 20 20 CA ME N 22 11 11 RE YE 2% 2 R PH BR OI AR AD NT MA FO ME CY RD NT # A 4 NA 00 04 06 5 30 30 TO 47 BR Ac DO 37 -2 -2 .0 TA 57 OW ti LO 80 7- 0- 00 L 95 NS ve L 02 20 20 CA TE 20 80 11 11 RE IN 1 MG PH SH AR EL TA MA DO BL CY N ET # 4 FL 00 04 06 5 60 30 TO 47 BR Ac EC 05 -2 -2 .0 TA 57 OW ti AI 40 7- 0- 00 L 94 NS ve NI 01 20 20 CA TE DE 12 11 11 RE IN 1 AC PH SH ET AR EL AT MA DO E CY N 10 # 0 4 MG TA B DI 00 06 06 0 12 30 TO 48 QU Ac AZ 59 -1 -1 0. TA 01 AT ti EP 15 4- 4- 00 L 64 KE ve AM 62 20 20 0 CA ME 01 11 11 RE YE 10 0 R PH BR MG AR AD MA FO TA CY RD BL # A ET 4 00 06 06 0 12 30 TO 48 PA Ac 59 -1 -1 0. TA 01 TE ti 10 4- 4- 00 L 65 L ve 38 20 20 0 CA 70 11 11 RE RA 5 L PH AR MA CY # 4 LE 00 04 06 5 30 30 TO 47 PA Ac VO 52 -1 -1 .0 TA 49 TE ti TH 71 9- 3- 00 L 91 L ve YR 34 20 20 CA OX 31 11 11 RE RA IN 0 L E PH 75 AR MA MC CY G # TA 4 BL ET TR 50 12 06 5 60 30 TO 46 QU Ac AZ 11 -2 -1 .0 TA 35 AT ti OD 10 9- 3- 00 L 46 KE ve ON 43 20 20 CA ME E 30 10 11 RE YE 50 3 R PH BR MG AR AD MA FO TA CY RD BL # A ET 4 TI 00 04 06 5 90 30 TO 47 QU Ac ZA 18 -1 -1 .0 TA 48 AT ti NI 54 8- 3- 00 L 13 KE ve DI 40 20 20 CA ME NE 01 11 11 RE YE 0 R HC PH BR L AR AD 4 MA FO MG CY RD # A TA 4 BL ET DO 00 04 06 5 60 30 TO 47 QU Ac XE 37 -1 -1 .0 TA 48 AT ti PI 86 8- 3- 00 L 15 KE ve N 41 20 20 CA ME 10 00 11 11 RE YE 0 1 R MG PH BR AR AD CA MA FO PS CY RD UL # A E 4 LA 55 04 06 5 30 30 TO 47 QU Ac NS 11 -1 -1 .0 TA 48 AT ti OP 10 8- 3- 00 L 17 KE ve RA 39 20 20 CA ME ZO 90 11 11 RE YE LE [address] AR AD MA FO [address] # A MG 4 CA PS UL E VE 00 04 06 5 18 25 TO 47 QU Ac NT 17 -1 -1 .0 TA 48 AT ti OL 30 8- 3- 00 L 18 KE ve IN 68 20 20 CA ME 22 11 11 RE YE HF 0 R A PH BR 90 AR AD MA FO MC CY RD G # A IN 4 ANSARI LE R CI 65 04 06 5 15 30 TO 47 QU Ac TA 16 -1 -1 .0 TA 48 AT ti LO 20 8- 3- 00 L 19 KE ve CA 05 20 20 CA ME AM 45 11 11 RE YE 0 R HB PH BR R AR AD [address] MG # A 4 TA BL ET IB 55 05 06 5 90 22 TO 47 QU Ac UP 11 -1 -1 .0 TA 75 AT ti RO 10 6- 3- 00 L 24 KE ve FE 68 20 20 CA ME N 40 11 11 RE YE 80 5 R 0 PH BR MG AR AD MA FO TA CY RD BL # A ET 4 GA 53 06 06 2 90 30 TO 48 QU Ac BA 74 -1 -1 .0 TA 00 AT ti PE 60 3- 3- 00 L 40 KE ve NT 10 20 20 CA ME IN 20 11 11 RE YE 5 R 30 PH BR 0 AR AD MG MA FO CY RD CA # A PS 4 UL E NI 00 06 06 0 28 28 TO 47 QU Ac CO 06 -1 -1 .0 TA 99 AT ti TI 75 1- 1- 00 L 73 KE ve NE 12 20 20 CA ME 61 11 11 RE YE 21 4 R PH BR MG AR AD /2 MA FO 4H CY RD R # A PA 4 TC H CA 60 06 06 0 18 9 TO 47 QU Ac OM 43 -1 -1 0. TA 99 AT ti ET 20 0- 0- 00 L 51 KE ve ANSARI 60 20 20 0 CA ME ZI 41 11 11 RE YE NE 6 R -D PH BR M AR AD SY MA FO RU CY RD P # A 4 AM 00 06 06 0 20 10 TO 47 QU Ac OX 78 -1 -1 .0 TA 99 AT ti IC 15 0- 0- 00 L 07 KE ve IL 06 20 20 CA ME LI 10 11 11 RE YE N 1 R 87 PH BR 5 AR AD MG MA FO CY RD TA # A BL 4 ET 00 06 06 2 14 32 TO 47 QU Ac 59 -0 -0 .6 TA 97 AT ti 70 9- 9- 99 L 71 KE ve 01 20 20 CA ME 31 11 11 RE YE 4 R PH BR AR AD MA FO CY RD # A 4 AD 00 06 06 5 60 30 TO 47 QU Ac VA 17 -0 -0 .0 TA 97 AT ti IR 30 9- 9- 00 L 73 KE ve 69 20 20 CA ME 10 50 11 11 RE YE 0- 0 R 50 PH BR AR AD DI MA FO SK CY RD US # A 4 CE 45 06 06 5 30 30 TO 47 QU Ac TI 80 -0 -0 .0 TA 97 AT ti RI 20 9- 9- 00 L 74 KE ve ZI 91 20 20 CA ME NE 98 11 11 RE YE 7 R HC PH BR L AR AD [address] MG # A 4 TA BL ET NA 00 04 05 5 30 30 TO 47 BR Ac DO 37 -2 -2 .0 TA 57 OW ti LO 80 7- 4- 00 L 95 NS ve L 02 20 20 CA TE 20 80 11 11 RE IN 1 MG PH SH AR EL TA MA DO BL CY N ET # 4 FL 00 04 05 5 60 30 TO 47 BR Ac EC 05 -2 -2 .0 TA 57 OW ti AI 40 7- 4- 00 L 94 NS ve NI 01 20 20 CA TE DE 12 11 11 RE IN 1 AC PH SH ET AR EL AT MA DO E CY N 10 # 0 4 MG TA B 00 05 05 0 52 12 TO 47 DO Ac 14 -2 -2 .0 TA 83 ZI ti 31 0- 4- 00 L 71 ER ve 47 20 20 CA 31 11 11 RE EM 0 IL PH Y AR J MA CY # 4 IB 55 05 05 5 90 22 TO 47 QU Ac UP 11 -1 -1 .0 TA 75 AT ti RO 10 6- 6- 00 L 24 KE ve FE 68 20 20 CA ME N 40 11 11 RE YE 80 5 R 0 PH BR MG AR AD MA FO TA CY RD BL # A ET 4 CI 65 04 05 5 15 30 TO 47 QU Ac TA 16 -1 -1 .0 TA 48 AT ti LO 20 8- 6- 00 L 19 KE ve CA 05 20 20 CA ME AM 45 11 11 RE YE 0 R HB PH BR R AR AD [address] MG # A 4 TA BL ET VE 00 04 05 5 18 25 TO 47 QU Ac NT 17 -1 -1 .0 TA 48 AT ti OL 30 8- 6- 00 L 18 KE ve IN 68 20 20 CA ME 22 11 11 RE YE HF 0 R A PH BR 90 AR AD MA FO MC CY RD G # A IN 4 ANSARI LE R LA 55 04 05 5 30 30 TO 47 QU Ac NS 11 -1 -1 .0 TA 48 AT ti OP 10 8- 6- 00 L 17 KE ve RA 39 20 20 CA ME ZO 90 11 11 RE YE LE [address] AR AD MA FO [address] # A MG 4 CA PS UL E DO 00 04 05 5 60 30 TO 47 QU Ac XE 37 -1 -1 .0 TA 48 AT ti PI 86 8- 6- 00 L 15 KE ve N 41 20 20 CA ME 10 00 11 11 RE YE 0 1 R MG PH BR AR AD CA MA FO PS CY RD UL # A E 4 TI 00 04 05 5 90 30 TO 47 QU Ac ZA 18 -1 -1 .0 TA 48 AT ti NI 54 8- 6- 00 L 13 KE ve DI 40 20 20 CA ME NE 01 11 11 RE YE 0 R HC PH BR L AR AD 4 MA FO MG CY RD # A TA 4 BL ET GA 53 03 05 2 90 30 TO 47 QU Ac BA 74 -2 -1 .0 TA 20 AT ti PE 60 1- 6- 00 L 97 KE ve NT 10 20 20 CA ME IN 20 11 11 RE YE 5 R 30 PH BR 0 AR AD MG MA FO CY RD CA # A PS 4 UL E 00 05 05 0 12 30 TO 47 PA Ac 59 -1 -1 0. TA 75 TE ti 10 6- 6- 00 L 60 L ve 38 20 20 0 CA 70 11 11 RE RA 5 L PH AR MA CY # 4 DI 00 05 05 0 12 30 TO 47 PA Ac AZ 59 -1 -1 0. TA 75 TE ti EP 15 6- 6- 00 L 25 L ve AM 62 20 20 0 CA 01 11 11 RE RA 10 0 L PH MG AR MA TA CY BL # ET 4 LE 00 04 05 5 30 30 TO 47 PA Ac VO 52 -1 -1 .0 TA 49 TE ti TH 71 9- 6- 00 L 91 L ve YR 34 20 20 CA OX 31 11 11 RE RA IN 0 L E PH 75 AR MA MC CY G # TA 4 BL ET CA 00 05 05 0 5. 5 TO 47 QU Ac ED 05 -1 -1 00 TA 74 AT ti NI 40 3- 3- 0 L 05 KE ve SO 01 20 20 CA ME NE 82 11 11 RE YE 5 R 20 PH BR AR AD MG MA FO CY RD TA # A BL 4 ET CE 68 05 05 0 20 10 TO 47 QU Ac FU 18 -1 -1 .0 TA 74 AT ti RO 00 3- 3- 00 L 04 KE ve XI 30 20 20 CA ME ME 36 11 11 RE YE 0 R AX PH BR ET AR AD IL MA FO CY RD 50 # A 0 4 MG TA B FL 00 05 05 0 3. 7 TO 47 QU Ac UC 17 -0 -0 00 TA 69 AT ti ON 25 9- 9- 0 L 76 KE ve AZ 41 20 20 CA ME OL 21 11 11 RE YE E 1 R 15 PH BR 0 AR AD MG MA FO CY RD TA # A BL 4 ET AZ 00 05 05 0 3. 3 TO 47 QU Ac IT 78 -0 -0 00 TA 69 AT ti HR 11 9- 9- 0 L 77 KE ve OM 94 20 20 CA ME YC 13 11 11 RE YE IN 3 R PH BR 50 AR AD 0 MA FO MG CY RD # A TA 4 BL ET TR 50 12 04 5 60 30 TO 46 QU Ac AZ 11 -2 -2 .0 TA 35 AT ti OD 10 9- 8- 00 L 46 KE ve ON 43 20 20 CA ME E 30 10 11 RE YE 50 3 R PH BR MG AR AD MA FO TA CY RD BL # A ET 4 NA 00 04 04 5 30 30 TO 47 BR Ac DO 37 -2 -2 .0 TA 57 OW ti LO 80 7- 7- 00 L 95 NS ve L 02 20 20 CA TE 20 80 11 11 RE IN 1 MG PH SH AR EL TA MA DO BL CY N ET # 4 FL 00 04 04 5 60 30 TO 47 BR Ac EC 05 -2 -2 .0 TA 57 OW ti AI 40 7- 7- 00 L 94 NS ve NI 01 20 20 CA TE DE 12 11 11 RE IN 1 AC PH SH ET AR EL AT MA DO E CY N 10 # 0 4 MG TA B TI 00 04 04 5 90 30 TO 47 QU Ac ZA 18 -1 -1 .0 TA 48 AT ti NI 54 8- 9- 00 L 13 KE ve DI 40 20 20 CA ME NE 01 11 11 RE YE 0 R HC PH BR L AR AD 4 MA FO MG CY RD # A TA 4 BL ET GA 53 03 04 2 90 30 TO 47 QU Ac BA 74 -2 -1 .0 TA 20 AT ti PE 60 1- 9- 00 L 97 KE ve NT 10 20 20 CA ME IN 20 11 11 RE YE 5 R 30 PH BR 0 AR AD MG MA FO CY RD CA # A PS 4 UL E LE 00 04 04 5 30 30 TO 47 PA Ac VO 52 -1 -1 .0 TA 49 TE ti TH 71 9- 9- 00 L 91 L ve YR 34 20 20 CA OX 31 11 11 RE RA IN 0 L E PH 75 AR MA MC CY G # TA 4 BL ET DI 00 04 04 0 12 30 TO 47 QU Ac AZ 59 -1 -1 0. TA 48 AT ti EP 15 8- 8- 00 L 03 KE ve AM 62 20 20 0 CA ME 01 11 11 RE YE 10 0 R PH BR MG AR AD MA FO TA CY RD BL # A ET 4 00 04 04 0 12 30 TO 47 QU Ac 59 -1 -1 0. TA 48 AT ti 10 8- 8- 00 L 04 KE ve 38 20 20 0 CA ME 70 11 11 RE YE 5 R PH BR AR AD MA FO CY RD # A 4 IB 55 04 04 0 90 22 TO 47 QU Ac UP 11 -1 -1 .0 TA 48 AT ti RO 10 8- 8- 00 L 14 KE ve FE 68 20 20 CA ME N 40 11 11 RE YE 80 5 R 0 PH BR MG AR AD MA FO TA CY RD BL # A ET 4 LA 55 04 04 5 30 30 TO 47 QU Ac NS 11 -1 -1 .0 TA 48 AT ti OP 10 8- 8- 00 L 17 KE ve RA 39 20 20 CA ME ZO 90 11 11 RE YE LE [address] AR AD MA FO [address] # A MG 4 CA PS UL E VE 00 04 04 5 18 25 TO 47 QU Ac NT 17 -1 -1 .0 TA 48 AT ti OL 30 8- 8- 00 L 18 KE ve IN 68 20 20 CA ME 22 11 11 RE YE HF 0 R A PH BR 90 AR AD MA FO MC CY RD G # A IN 4 ANSARI LE R CI 65 04 04 5 15 30 TO 47 QU Ac TA 16 -1 -1 .0 TA 48 AT ti LO 20 8- 8- 00 L 19 KE ve CA 05 20 20 CA ME AM 45 11 11 RE YE 0 R HB PH BR R AR AD [address] MG # A 4 TA BL ET DO 00 02 04 2 30 15 TO 46 QU Ac XE 37 -1 -1 .0 TA 89 AT ti PI 86 7- 3- 00 L 13 KE ve N 41 20 20 CA ME 10 00 11 11 RE YE 0 1 R MG PH BR AR AD CA MA FO PS CY RD UL # A E 4 LE 00 04 04 0 30 30 TO 47 PA Ac VO 52 -1 -1 .0 TA 44 TE ti TH 71 3- 3- 00 L 80 L ve YR 34 20 20 CA OX 21 11 11 RE RA IN 0 L E PH 50 AR MA MC CY G # TA 4 BL ET 00 04 04 0 3. 10 TO 47 PA Ac GA 06 -0 -0 00 TA 35 TE ti MO 54 4- 4- 0 L 58 L ve X 01 20 20 CA 0. 30 11 11 RE RA 5% 3 L PH EY AR E MA DR CY OP # S 4 ME 00 03 03 [address] Ac CL 53 -2 -2 .0 TA 24 AN ti IZ 63 3- 4- 00 L 19 FO ve IN 98 20 20 CA RT E 50 11 11 RE H 12 1 DA .5 PH AR D MG MA CY TA # BL 4 ET TI 00 03 03 0 90 30 TO 47 QU Ac ZA 18 -2 -2 .0 TA 23 AT ti NI 54 3- 3- 00 L 51 KE ve DI 40 20 20 CA ME NE 01 11 11 RE YE 0 R HC PH BR L AR AD 4 MA FO MG CY RD # A TA 4 BL ET 00 03 03 0 12 30 TO 47 QU Ac 59 -1 -2 0. TA 20 AT ti 10 8- 1- 00 L 20 KE ve 38 20 20 0 CA ME 70 11 11 RE YE 5 R PH BR AR AD MA FO CY RD # A 4 GA 53 03 03 2 90 30 TO 47 QU Ac BA 74 -2 -2 .0 TA 20 AT ti PE 60 1- 1- 00 L 97 KE ve NT 10 20 20 CA ME IN 20 11 11 RE YE 5 R 30 PH BR 0 AR AD MG MA FO CY RD CA # A PS 4 UL E CA 64 06 03 6 30 30 TO 44 PA Ac EV 76 -1 -2 .0 TA 51 TE ti AC 40 6- 1- 00 L 78 L ve ID 04 20 20 CA 61 [address] 3 L PH 30 AR MA MG CY # CA 4 PS UL E CI 65 11 03 5 15 30 TO 45 PA Ac TA 16 -0 -2 .0 TA 82 TE ti LO 20 4- 1- 00 L 07 L ve CA 05 20 20 CA AM 45 10 11 RE RA 0 L HB PH R AR 40 MA CY MG # 4 TA BL ET IB 55 03 03 0 90 30 TO 47 PA Ac UP 11 -2 -2 .0 TA 20 TE ti RO 10 1- 1- 00 L 96 L ve FE 68 20 20 CA N 40 11 11 RE RA 80 5 L 0 PH MG AR MA TA CY BL # ET 4 DI 00 03 03 0 12 30 TO 47 QU Ac AZ 59 -1 -1 0. TA 20 AT ti EP 15 8- 8- 00 L 21 KE ve AM 62 20 20 0 CA ME 01 11 11 RE YE 10 0 R PH BR MG AR AD MA FO TA CY RD BL # A ET 4 DO 00 02 03 2 30 15 TO 46 QU Ac XE 37 -1 -0 .0 TA 89 AT ti PI 86 7- 8- 00 L 13 KE ve N 41 20 20 CA ME 10 00 11 11 RE YE 0 1 R MG PH BR AR AD CA MA FO PS CY RD UL # A E 4 LE 00 03 03 0 30 30 TO 47 PA Ac VO 52 -0 -0 .0 TA 07 TE ti TH 71 8- 8- 00 L 65 L ve YR 34 20 20 CA OX 21 11 11 RE RA IN 0 L E PH 50 AR MA MC CY G # TA 4 BL ET DI 00 02 02 0 90 30 TO 46 QU Ac AZ 59 -1 -2 .0 TA 89 AT ti EP 15 7- 5- 00 L 15 KE ve AM 62 20 20 CA ME 01 11 11 RE YE 10 0 R PH BR MG AR AD MA FO TA CY RD BL # A ET 4 TI 00 02 02 0 90 30 TO 46 QU Ac ZA 18 -2 -2 .0 TA 92 AT ti NI 54 1- 1- 00 L 04 KE ve DI 40 20 20 CA ME NE 01 11 11 RE YE 0 R HC PH BR L AR AD 4 MA FO MG CY RD # A TA 4 BL ET CA 64 06 02 6 30 30 TO 44 PA Ac EV 76 -1 -2 .0 TA 51 TE ti AC 40 6- 1- 00 L 78 L ve ID 04 20 20 CA 61 [address] 3 L PH 30 AR MA MG CY # CA 4 PS UL E IB 55 02 02 0 90 30 TO 46 PA Ac UP 11 -2 -2 .0 TA 91 TE ti RO 10 1- 1- 00 L 80 L ve FE 68 20 20 CA N 40 11 11 RE RA 80 5 L 0 PH MG AR MA TA CY BL # ET 4 GA 53 12 02 2 90 30 TO 46 QU Ac BA 74 -2 -2 .0 TA 35 AT ti PE 60 9- 1- 00 L 47 KE ve NT 10 20 20 CA ME IN 20 10 11 RE YE 5 R 30 PH BR 0 AR AD MG MA FO CY RD CA # A PS 4 UL E 00 02 02 0 12 30 TO 46 QU Ac 59 -1 -2 0. TA 89 AT ti 10 7- 1- 00 L 16 KE ve 38 20 20 0 CA ME 70 11 11 RE YE 5 R PH BR AR AD MA FO CY RD # A 4 CI 65 11 02 5 15 30 TO 45 PA Ac TA 16 -0 -1 .0 TA 82 TE ti LO 20 4- 7- 00 L 07 L ve CA 05 20 20 CA AM 45 10 11 RE RA 0 L HB PH R AR 40 MA CY MG # 4 TA BL ET AZ 00 02 02 0 3. 3 TO 46 QU Ac IT 78 -1 -1 00 TA 89 AT ti HR 11 7- 7- 0 L 11 KE ve OM 94 20 20 CA ME YC 13 11 11 RE YE IN 3 R PH BR 50 AR AD 0 MA FO MG CY RD # A TA 4 BL ET DO 00 02 02 2 30 15 TO 46 QU Ac XE 37 -1 -1 .0 TA 89 AT ti PI 86 7- 7- 00 L 13 KE ve N 41 20 20 CA ME 10 00 11 11 RE YE 0 1 R MG PH BR AR AD CA MA FO PS CY RD UL # A E 4 DO 00 01 02 2 60 30 TO 46 QU Ac XE 37 -1 -1 .0 TA 50 AT ti PI 83 3- 0- 00 L 56 KE ve N 12 20 20 CA ME 25 50 11 11 RE YE 1 R MG PH BR AR AD CA MA FO PS CY RD UL # A E 4 LE 00 02 02 0 30 30 TO 46 PA Ac VO 52 -0 -0 .0 TA 76 TE ti TH 71 7- 7- 00 L 75 L ve YR 34 20 20 CA OX 21 11 11 RE RA IN 0 L E PH 50 AR MA MC CY G # TA 4 BL ET FL 00 02 02 0 3. 10 TO 46 QU Ac UC 17 -0 -0 00 TA 71 AT ti ON 25 3- 3- 0 L 54 KE ve AZ 41 20 20 CA ME OL 21 11 11 RE YE E 1 R 15 PH BR 0 AR AD MG MA FO CY RD TA # A BL 4 ET CI 00 02 02 0 20 10 TO 46 QU Ac CA 14 -0 -0 .0 TA 72 AT ti OF 32 3- 3- 00 L 14 KE ve LO 03 20 20 CA ME XA 70 11 11 RE YE CI 1 R N PH BR HC AR AD L MA FO [address] 0 # A MG 4 TA B DI 00 01 01 0 90 30 TO 46 PA Ac AZ 59 -2 -2 .0 TA 62 TE ti EP 15 6- 6- 00 L 00 L ve AM 62 20 20 CA 01 11 11 RE RA 10 0 L PH MG AR MA TA CY BL # ET 4 00 01 01 0 10 27 TO 46 PA Ac 59 -2 -2 5. TA 61 TE ti 10 6- 6- 00 L 99 L ve 38 20 20 0 CA 70 11 11 RE RA 5 L PH AR MA CY # 4 IB 55 01 01 0 90 30 TO 46 PA Ac UP 11 -2 -2 .0 TA 61 TE ti RO 10 5- 5- 00 L 04 L ve FE 68 20 20 CA N 40 11 11 RE RA 80 5 L 0 PH MG AR MA TA CY BL # ET 4 CA 64 08 01 5 30 30 TO 45 QU Ac EV 76 -1 -2 .0 TA 01 AT ti AC 40 2- 5- 00 L 01 KE ve ID 04 20 20 CA ME [address] 3 R PH BR 30 AR AD MA FO MG CY RD # A CA 4 PS UL E GA 53 12 01 2 90 30 TO 46 QU Ac BA 74 -2 -2 .0 TA 35 AT ti PE 60 9- 5- 00 L 47 KE ve NT 10 20 20 CA ME IN 20 10 11 RE YE 5 R 30 PH BR 0 AR AD MG MA FO CY RD CA # A PS 4 UL E TI 00 12 01 1 90 30 TO 46 QU Ac ZA 18 -2 -2 .0 TA 35 AT ti NI 54 9- 5- 00 L 48 KE ve DI 40 20 20 CA ME NE 01 10 11 RE YE 0 R HC PH BR L AR AD 4 MA FO MG CY RD # A TA 4 BL ET CI 65 11 01 5 15 30 TO 45 PA Ac TA 16 -0 -1 .0 TA 82 TE ti LO 20 4- 9- 00 L 07 L ve CA 05 20 20 CA AM 45 10 11 RE RA 0 L HB PH R AR 40 MA CY MG # 4 TA BL ET 00 01 01 0 36 20 TO 46 QU Ac 18 -1 -1 0. TA 50 AT ti 57 3- 3- 00 L 57 KE ve 32 20 20 0 CA ME 26 11 11 RE YE 0 R PH BR AR AD MA FO CY RD # A 4 DO 00 01 01 2 60 30 TO 46 QU Ac XE 37 -1 -1 .0 TA 50 AT ti PI 83 3- 3- 00 L 56 KE ve N 12 20 20 CA ME 25 50 11 11 RE YE 1 R MG PH BR AR AD CA MA FO PS CY RD UL # A E 4 00 01 01 0 10 8 TO 46 QU Ac 14 -1 -1 .0 TA 50 AT ti 31 3- 3- 00 L 55 KE ve 47 20 20 CA ME 31 11 11 RE YE 0 R PH BR AR AD MA FO CY RD # A 4 CE 68 01 01 0 30 10 TO 46 QU Ac PH 18 -1 -1 .0 TA 47 AT ti AL 00 1- 1- 00 L 15 KE ve EX 12 20 20 CA ME IN 20 11 11 RE YE 2 R 50 PH BR 0 AR AD MG MA FO CY RD CA # A PS 4 UL E CA 60 01 01 0 24 6 TO 46 QU Ac OM 43 -1 -1 0. TA 47 AT ti ET 20 1- 1- 00 L 16 KE ve ANSARI 60 20 20 0 CA ME ZI 41 11 11 RE YE NE 6 R -D PH BR M AR AD SY MA FO RU CY RD P # A 4 LE 00 11 01 2 30 30 TO 45 PA Ac VO 52 -1 -0 .0 TA 88 TE ti TH 71 0- 7- 00 L 08 L ve YR 34 20 20 CA OX 21 10 11 RE RA IN 0 L E PH 50 AR MA MC CY G # TA 4 BL ET DI 00 12 12 0 90 30 TO 46 PA Ac AZ 59 -2 -2 .0 TA 35 TE ti EP 15 9- 9- 00 L 86 L ve AM 62 20 20 CA 01 10 10 RE RA 10 0 L PH MG AR MA TA CY BL # ET 4 CA 64 08 12 5 30 30 TO 45 QU Ac EV 76 -1 -2 .0 TA 01 AT ti AC 40 2- 9- 00 L 01 KE ve ID 04 20 20 CA ME [address] 3 R PH BR 30 AR AD MA FO MG CY RD # A CA 4 PS UL E TR 50 12 12 5 60 30 TO 46 QU Ac AZ 11 -2 -2 .0 TA 35 AT ti OD 10 9- 9- 00 L 46 KE ve ON 43 20 20 CA ME E 30 10 10 RE YE 50 3 R PH BR MG AR AD MA FO TA CY RD BL # A ET 4 GA 53 12 12 2 90 30 TO 46 QU Ac BA 74 -2 -2 .0 TA 35 AT ti PE 60 9- 9- 00 L 47 KE ve NT 10 20 20 CA ME IN 20 10 10 RE YE 5 R 30 PH BR 0 AR AD MG MA FO CY RD CA # A PS 4 UL E TI 00 12 12 1 90 30 TO 46 QU Ac ZA 18 -2 -2 .0 TA 35 AT ti NI 54 9- 9- 00 L 48 KE ve DI 40 20 20 CA ME NE 01 10 10 RE YE 0 R HC PH BR L AR AD 4 MA FO MG CY RD # A TA 4 BL ET FL 00 12 12 0 3. 10 TO 46 QU Ac UC 17 -2 -2 00 TA 35 AT ti ON 25 9- 9- 0 L 49 KE ve AZ 41 20 20 CA ME OL 21 10 10 RE YE E 1 R 15 PH BR 0 AR AD MG MA FO CY RD TA # A BL 4 ET PE 00 12 12 1 59 1 TO 46 QU Ac RM 47 -2 -2 .0 TA 35 AT ti ET 25 9- 9- 00 L 50 KE ve HR 24 20 20 CA ME IN 26 10 10 RE YE 9 R 1% PH BR AR AD LO MA FO TI CY RD ON # A 4 AZ 00 12 12 0 6. 5 TO 46 QU Ac IT 78 -2 -2 00 TA 35 AT ti HR 11 9- 9- 0 L 51 KE ve OM 49 20 20 CA ME YC 66 10 10 RE YE IN 8 R PH BR 25 AR AD 0 MA FO MG CY RD # A TA 4 BL ET 00 12 12 0 10 27 TO 46 QU Ac 59 -2 -2 5. TA 35 AT ti 10 9- 9- 00 L 57 KE ve 38 20 20 0 CA ME 70 10 10 RE YE 5 R PH BR AR AD MA FO CY RD # A 4 CI 65 11 12 5 15 30 TO 45 PA Ac TA 16 -0 -2 .0 TA 82 TE ti LO 20 4- 2- 00 L 07 L ve CA 05 20 20 CA AM 45 10 10 RE RA 0 L HB PH R AR 40 MA CY MG # 4 TA BL ET LE 00 11 12 2 30 30 TO 45 PA Ac VO 52 -1 -0 .0 TA 88 TE ti TH 71 0- 9- 00 L 08 L ve YR 34 20 20 CA OX 21 10 10 RE RA IN 0 L E PH 50 AR MA MC CY G # TA 4 BL ET DI 00 11 12 1 90 30 TO 45 PA Ac AZ 59 -0 -0 .0 TA 82 TE ti EP 15 4- 1- 00 L 13 L ve AM 62 20 20 CA 01 10 10 RE RA 10 0 L PH MG AR MA TA CY BL # ET 4 TI 00 11 12 1 90 30 TO 45 PA Ac ZA 18 -0 -0 .0 TA 82 TE ti NI 54 4- 1- 00 L 14 L ve DI 40 20 20 CA NE 01 10 10 RE RA 0 L HC PH L AR 4 MA MG CY # TA 4 BL ET GA 53 11 12 0 90 30 TO 46 PA Ac BA 74 -3 -0 .0 TA 07 TE ti PE 60 0- 1- 00 L 93 L ve NT 10 20 20 CA IN 10 10 10 RE RA 5 L 10 PH 0 AR MG MA CY CA # PS 4 UL E 00 11 12 0 90 30 TO 46 PA Ac 59 -3 -0 .0 TA 07 TE ti 10 0- 1- 00 L 95 L ve 38 20 20 CA 70 10 10 RE RA 5 L PH AR MA CY # 4 IB 55 11 11 0 90 30 TO 46 PA Ac UP 11 -3 -3 .0 TA 07 TE ti RO 10 0- 0- 00 L 92 L ve FE 68 20 20 CA N 40 10 10 RE RA 80 5 L 0 PH MG AR MA TA CY BL # ET 4 CA 64 08 11 5 30 30 TO 45 QU Ac EV 76 -1 -3 .0 TA 01 AT ti AC 40 2- 0- 00 L 01 KE ve ID 04 20 20 CA ME 61 [address] 3 R PH BR 30 AR AD MA FO MG CY RD # A CA 4 PS UL E TR 50 11 11 0 60 30 TO 46 QU Ac AZ 11 -3 -3 .0 TA 07 AT ti OD 10 0- 0- 00 L 78 KE ve ON 43 20 20 CA ME E 30 10 10 RE YE 50 3 R PH BR MG AR AD MA FO TA CY RD BL # A ET 4 LE 00 11 11 2 30 30 TO 45 PA Ac VO 52 -1 -1 .0 TA 88 TE ti TH 71 0- 0- 00 L 08 L ve YR 34 20 20 CA OX 21 10 10 RE RA IN 0 L E PH 50 AR MA MC CY G # TA 4 BL ET FL 00 11 11 0 1. 1 TO 45 PA Ac UC 17 -0 -0 00 TA 84 TE ti ON 25 5- 5- 0 L 13 L ve AZ 41 20 20 CA OL 21 10 10 RE RA E 1 L 15 PH 0 AR MG MA CY TA # BL 4 ET GA 53 11 11 0 90 30 TO 45 PA Ac BA 74 -0 -0 .0 TA 82 TE ti PE 60 4- 4- 00 L 24 L ve NT 10 20 20 CA IN 10 10 10 RE RA 5 L 10 PH 0 AR MG MA CY CA # PS 4 UL E TI 00 11 11 1 90 30 TO 45 PA Ac ZA 18 -0 -0 .0 TA 82 TE ti NI 54 4- 4- 00 L 14 L ve DI 40 20 20 CA NE 01 10 10 RE RA 0 L HC PH L AR 4 MA MG CY # TA 4 BL ET DI 00 11 11 1 90 30 TO 45 PA Ac AZ 59 -0 -0 .0 TA 82 TE ti EP 15 4- 4- 00 L 13 L ve AM 62 20 20 CA 01 10 10 RE RA 10 0 L PH MG AR MA TA CY BL # ET 4 00 11 11 0 90 30 TO 45 PA Ac 59 -0 -0 .0 TA 82 TE ti 10 4- 4- 00 L 12 L ve 38 20 20 CA 70 10 10 RE RA 5 L PH AR MA CY # 4 AZ 00 11 11 0 6. 5 TO 45 PA Ac IT 78 -0 -0 00 TA 82 TE ti HR 11 4- 4- 0 L 08 L ve OM 49 20 20 CA YC 66 10 10 RE RA IN 8 L PH 25 AR 0 MA MG CY # TA 4 BL ET CI 65 11 11 5 15 30 TO 45 PA Ac TA 16 -0 -0 .0 TA 82 TE ti LO 20 4- 4- 00 L 07 L ve CA 05 20 20 CA AM 45 10 10 RE RA 0 L HB PH R AR 40 MA CY MG # 4 TA BL ET CA 64 08 10 5 30 30 TO 45 QU Ac EV 76 -1 -2 .0 TA 01 AT ti AC 40 2- 3- 00 L 01 KE ve ID 04 20 20 CA ME [address] 3 R PH BR 30 AR AD MA FO MG CY RD # A CA 4 PS UL E NE 00 10 10 2 30 30 TO 45 QU Ac XI 18 -2 -2 .0 TA 69 AT ti UM 65 1- 1- 00 L 25 KE ve 04 [address] 05 10 10 RE YE 4 R 40 PH BR AR AD MG MA FO CY RD CA # A PS 4 UL E IB 55 10 10 0 90 30 TO 45 PA Ac UP 11 -1 -2 .0 TA 64 TE ti RO 10 8- 0- 00 L 59 L ve FE 68 20 20 CA N 40 10 10 RE RA 80 5 L 0 PH MG AR MA TA CY BL # ET 4 TR 50 08 10 2 60 30 TO 45 QU Ac AZ 11 -1 -1 .0 TA 01 AT ti OD 10 2- 8- 00 L 00 KE ve ON 43 20 20 CA ME E 30 10 10 RE YE 50 3 R PH BR MG AR AD MA FO TA CY RD BL # A ET 4 TI 00 08 10 5 60 30 TO 45 QU Ac ZA 18 -1 -0 .0 TA 00 AT ti NI 54 2- 6- 00 L 97 KE ve DI 40 20 20 CA ME NE 01 10 10 RE YE 0 R HC PH BR L AR AD 4 MA FO MG CY RD # A TA 4 BL ET DI 00 10 10 0 90 30 TO 45 PA Ac AZ 59 -0 -0 .0 TA 52 TE ti EP 15 5- 6- 00 L 58 L ve AM 62 20 20 CA 01 10 10 RE RA 10 0 L PH MG AR MA TA CY BL # ET 4 00 10 10 0 90 30 TO 45 PA Ac 59 -0 -0 .0 TA 52 TE ti 10 5- 6- 00 L 57 L ve 38 20 20 CA 70 10 10 RE RA 5 L PH AR MA CY # 4 GA 53 10 10 0 60 30 TO 45 PA Ac BA 74 -0 -0 .0 TA 51 TE ti PE 60 4- 4- 00 L 52 L ve NT 10 20 20 CA IN 10 10 10 RE RA 5 L 10 PH 0 AR MG MA CY CA # PS 4 UL E GA 53 09 09 2 30 30 TO 45 PA Ac BA 74 -2 -2 .0 TA 45 TE ti PE 60 8- 8- 00 L 95 L ve NT 10 20 20 CA IN 10 10 10 RE RA 5 L 10 PH 0 AR MG MA CY CA # PS 4 UL E IB 55 07 09 1 90 30 TO 44 PA Ac UP 11 -1 -2 .0 TA 72 TE ti RO 10 2- 3- 00 L 91 L ve FE 68 20 20 CA N 40 10 10 RE RA 80 5 L 0 PH MG AR MA TA CY BL # ET 4 CA 00 06 09 3 6. 32 TO 44 PA Ac OV 08 -1 -2 70 TA 51 TE ti EN 51 6- 3- 0 L 77 L ve TI 13 20 20 CA L 20 10 10 RE RA HF 1 L A PH 90 AR MA MC CY G # IN 4 ANSARI LE R AZ 00 09 09 0 3. 3 TO 45 QU Ac IT 78 -0 -2 00 TA 20 AT ti HR 11 2- 3- 0 L 84 KE ve OM 94 20 20 CA ME YC 13 10 10 RE YE IN 3 R PH BR 50 AR AD 0 MA FO MG CY RD # A TA 4 BL ET CA 64 08 09 5 30 30 TO 45 QU Ac EV 76 -1 -2 .0 TA 01 AT ti AC 40 2- 3- 00 L 01 KE ve ID 04 20 20 CA ME [address] 3 R PH BR 30 AR AD MA FO MG CY RD # A CA 4 PS UL E TR 50 08 09 2 60 30 TO 45 QU Ac AZ 11 -1 -1 .0 TA 01 AT ti OD 10 2- 5- 00 L 00 KE ve ON 43 20 20 CA ME E 30 10 10 RE YE 50 3 R PH BR MG AR AD MA FO TA CY RD BL # A ET 4 FL 00 09 09 0 1. 1 TO 45 QU Ac UC 17 -0 -1 00 TA 20 AT ti ON 25 2- 5- 0 L 85 KE ve AZ 41 20 20 CA ME OL 21 10 10 RE YE E 1 R 15 PH BR 0 AR AD MG MA FO CY RD TA # A BL 4 ET DI 00 08 09 1 90 30 TO 45 QU Ac AZ 59 -1 -0 .0 TA 00 AT ti EP 15 2- 9- 00 L 98 KE ve AM 62 20 20 CA ME 01 10 10 RE YE 10 0 R PH BR MG AR AD MA FO TA CY RD BL # A ET 4 TI 00 08 09 5 60 30 TO 45 QU Ac ZA 18 -1 -0 .0 TA 00 AT ti NI 54 2- 9- 00 L 97 KE ve DI 40 20 20 CA ME NE 01 10 10 RE YE 0 R HC PH BR L AR AD 4 MA FO MG CY RD # A TA 4 BL ET 00 08 09 1 90 30 TO 45 QU Ac 59 -1 -0 .0 TA 00 AT ti 10 2- 9- 00 L 96 KE ve 38 20 20 CA ME 70 10 10 RE YE 5 R PH BR AR AD MA FO CY RD # A 4 TI 00 08 08 5 60 30 45 QU Ac ZA 18 -1 -1 .0 00 AT ti NI 54 2- 2- 00 97 KE ve DI 40 20 20 ME NE 01 10 10 YE 0 R HC BR L AD [address] A TA BL ET DI 00 08 08 1 90 30 45 QU Ac AZ 59 -1 -1 .0 00 AT ti EP 15 2- 2- 00 98 KE ve AM 62 20 20 ME 01 10 10 YE 10 0 R BR MG AD FO TA RD BL A ET TR 50 08 08 2 60 30 45 QU Ac AZ 11 -1 -1 .0 01 AT ti OD 10 2- 2- 00 00 KE ve ON 43 20 20 ME E 30 10 10 YE 50 3 R BR MG AD FO TA RD BL A ET CA 64 08 08 5 30 30 45 QU Ac EV 76 -1 -1 .0 01 AT ti AC 40 2- 2- 00 01 KE ve ID 04 20 20 ME [address] 3 R BR [address] A CA PS UL E 00 08 08 1 90 30 45 QU Ac 59 -1 -1 .0 00 AT ti 10 2- 2- 00 96 KE ve 38 20 20 ME 70 10 10 YE 5 R BR AD FO RD A IB 55 07 07 1 90 30 44 PA Ac UP 11 -1 -1 .0 72 TE ti RO 10 2- 2- 00 91 L ve FE 68 20 20 N 40 10 10 RA 80 5 L 0 MG TA BL ET AM 00 07 07 0 30 30 44 PA Ac IT 78 -1 -1 .0 72 TE ti RI 11 2- 2- 00 90 L ve PT 48 20 20 YL 81 10 10 RA IN 0 L E HC L 50 MG TA B 00 06 07 1 90 30 44 PA Ac 59 -1 -1 .0 51 TE ti 10 6- 2- 00 81 L ve 38 20 20 70 10 10 RA 5 L TI 00 06 07 1 90 30 44 PA Ac ZA 18 -1 -1 .0 51 TE ti NI 54 6- 2- 00 80 L ve DI 40 20 20 NE 01 10 10 RA 0 L HC L 4 MG TA BL ET DI 00 06 07 1 90 30 44 PA Ac AZ 59 -1 -1 .0 51 TE ti EP 15 6- 2- 00 79 L ve AM 62 20 20 01 10 10 RA 10 0 L MG TA BL ET CA 64 06 07 6 30 30 44 PA Ac EV 76 -1 -1 .0 51 TE ti AC 40 6- 2- 00 78 L ve ID 04 20 [address] 3 L 30 MG CA PS UL E CA 00 06 07 3 6. 32 44 PA Ac OV 08 -1 -1 70 51 TE ti EN 51 6- 2- 0 77 L ve TI 13 20 20 L 20 10 10 RA HF 1 L A 90 MC G IN ANSARI LE R AM 00 06 06 0 30 30 44 PA Ac IT 78 -1 -1 .0 51 TE ti RI 11 6- 6- 00 82 L ve PT 48 20 20 YL 81 10 10 RA IN 0 L E HC L 50 MG TA B 00 06 06 1 90 30 44 PA Ac 59 -1 -1 .0 51 TE ti 10 6- 6- 00 81 L ve 38 20 20 70 10 10 RA 5 L TI 00 06 06 1 90 30 44 PA Ac ZA 18 -1 -1 .0 51 TE ti NI 54 6- 6- 00 80 L ve DI 40 20 20 NE 01 10 10 RA 0 L HC L 4 MG TA BL ET DI 00 06 06 1 90 30 44 PA Ac AZ 59 -1 -1 .0 51 TE ti EP 15 6- 6- 00 79 L ve AM 62 20 20 01 10 10 RA 10 0 L MG TA BL ET CA 64 06 06 6 30 30 44 PA Ac EV 76 -1 -1 .0 51 TE ti AC 40 6- 6- 00 78 L ve ID 04 20 [address] 3 L 30 MG CA PS UL E CA 00 06 06 3 6. 32 44 PA Ac OV 08 -1 -1 70 51 TE ti EN 51 6- 6- 0 77 L ve TI 13 20 20 L 20 10 10 RA HF 1 L A 90 MC G IN ANSARI LE R FL 00 06 06 0 1. 1 44 PA Ac UC 17 -1 -1 00 51 TE ti ON 25 6- 6- 0 76 L ve AZ 41 20 20 OL 21 10 10 RA E 1 L 15 0 MG TA BL ET AZ 00 06 06 0 6. 5 44 PA Ac IT 78 -1 -1 00 51 TE ti HR 11 6- 6- 0 75 L ve OM 49 20 20 YC 66 10 10 RA IN 8 L 25 0 MG TA BL ET ME 50 05 06 0 14 7 44 LO Ac TR 11 -2 -0 .0 36 ti ON 10 2 00 58 NS ve ID 33 20 20 AZ 40 10 10 RE OL 2 BE E CC 50 A 0 L MG TA BL ET DI 00 04 05 1 90 30 43 PA Ac AZ 59 -1 -1 .0 94 TE ti EP 15 6- 4- 00 99 L ve AM 62 20 20 00 10 10 RA 10 5 L MG TA BL ET 00 04 05 1 90 30 43 PA Ac 59 -1 -1 .0 95 TE ti 10 6- 4- 00 01 L ve 38 20 20 70 10 10 RA 5 L VE 00 04 05 3 18 32 43 PA Ac NT 17 -1 -1 .0 95 TE ti OL 30 6- 4- 00 02 L ve IN 68 20 20 22 10 10 RA HF 0 L A 90 MC G IN ANSARI LE R TI 00 04 05 2 60 20 43 PA Ac ZA 18 -1 -1 .0 95 TE ti NI 54 6- 4- 00 03 L ve DI 40 20 20 NE 01 10 10 RA 0 L HC L 4 MG TA BL ET TR 50 02 05 1 30 30 43 PA Ac AZ 11 -1 -0 .0 38 TE ti OD 10 8- 6- 00 58 L ve ON 44 20 20 E 10 10 10 RA 15 1 L 0 MG TA BL ET 24 10 05 3 16 54 42 PA Ac 38 -1 -0 0. 09 TE ti 50 3- 6- 00 10 L ve 58 20 20 0 50 09 10 RA 6 L CA 64 08 04 6 30 30 41 PA Ac EV 76 -1 -2 .0 43 TE ti AC 40 2- 9- 00 99 L ve ID 04 20 [address] 3 L 30 MG CA PS UL E 00 04 04 1 90 30 43 PA Ac 59 -1 -1 .0 95 TE ti 10 6- 7- 00 01 L ve 38 20 20 70 10 10 RA 5 L TI 00 04 04 2 60 20 43 PA Ac ZA 18 -1 -1 .0 95 TE ti NI 54 6- 6- 00 03 L ve DI 40 20 20 NE 01 10 10 RA 0 L HC L 4 MG TA BL ET VE 00 04 04 3 18 32 43 PA Ac NT 17 -1 -1 .0 95 TE ti OL 30 6- 6- 00 02 L ve IN 68 20 20 22 10 10 RA HF 0 L A 90 MC G IN ANSARI LE R DI 00 04 04 1 90 30 43 PA Ac AZ 59 -1 -1 .0 94 TE ti EP 15 6- 6- 00 99 L ve AM 62 20 20 00 10 10 RA 10 5 L MG TA BL ET AZ 00 04 04 0 4. 4 43 PA Ac IT 78 -1 -1 00 91 TE ti HR 11 3- 3- 0 29 L ve OM 49 20 20 YC 66 10 10 RA IN 8 L 25 0 MG TA BL ET CA 60 04 04 0 12 4 43 PA Ac OM 43 -1 -1 0. 91 TE ti ET 20 3- 3- 00 30 L ve ANSARI 60 20 20 0 ZI 41 10 10 RA NE 6 L -D M SY RU P FL 00 04 04 1 1. 1 43 PA Ac UC 17 -0 -0 00 84 TE ti ON 25 5- 5- 0 10 L ve AZ 41 20 20 OL 21 10 10 RA E 1 L 15 0 MG TA BL ET 53 04 04 0 12 24 43 PA Ac 01 -0 -0 0. 84 TE ti 40 5- 5- 00 12 L ve 54 20 20 0 86 10 10 RA 7 L AZ 00 04 04 0 6. 5 43 PA Ac IT 78 -0 -0 00 84 TE ti HR 11 5- 5- 0 13 L ve OM 49 20 20 YC 66 10 10 RA IN 8 L 25 0 MG TA BL ET BE 68 04 04 0 15 5 43 PA Ac NZ 38 -0 -0 .0 80 TE ti ON 20 1- 1- 00 64 L ve AT 24 20 20 AT 80 10 10 RA E 1 L 20 0 MG CA PS UL E LI 00 03 03 0 30 30 43 PA Ac SI 18 -2 -2 .0 77 TE ti NO 50 9- 9- 00 36 L ve CA 10 20 20 IL 11 10 10 RA 0 L 10 MG TA BL ET IB 55 03 03 0 30 10 43 PA Ac UP 11 -2 -2 .0 77 TE ti RO 10 9- 9- 00 42 L ve FE 68 20 20 N 20 10 10 RA 40 5 L 0 MG TA BL ET CH 00 03 03 0 18 5 43 PA Ac ER 60 -2 -2 0. 77 TE ti AT 31 9- 9- 00 39 L ve US 07 20 20 0 SI 55 10 10 RA N 8 L AC SY RU P AV 00 03 03 0 7. 7 43 PA Ac EL 08 -2 -2 00 77 TE ti OX 51 9- 9- 0 38 L ve 73 20 20 40 30 10 10 RA 0 1 L MG TA BL ET CA 64 08 03 6 30 30 41 PA Ac EV 76 -1 -1 .0 43 TE ti AC 40 2- 6- 00 99 L ve ID 04 20 [address] 3 L 30 MG CA PS UL E 00 02 03 1 80 26 43 PA Ac 59 -1 -1 .0 38 TE ti 10 8- 6- 00 55 L ve 38 20 20 70 10 10 RA 5 L TI 00 02 03 1 90 30 43 PA Ac ZA 18 -1 -1 .0 38 TE ti NI 54 8- 6- 00 56 L ve DI 40 20 20 NE 01 10 10 RA 0 L HC L 4 MG TA BL ET DI 00 02 03 1 90 30 43 PA Ac AZ 59 -1 -1 .0 38 TE ti EP 15 8- 6- 00 57 L ve AM 62 20 20 00 10 10 RA 10 5 L MG TA BL ET
--- OUTSIDE RECORDS SUMMARY | 2017-06-12 18:26 | External Medical Summary Rpt | CCD ---
Author Author , LAURA Organization [facility] Address Unknown Phone [email or web address] Team Providers Care Advertising Campaign Manager Name Role Phone [facility] # [...] 2- 9- 00 L 48 KE ve ND 05 20 20 CA ME AM 45 [...] 5 60 30 TO 48 QU Ac ND 46 -1 -0 .0 TA 26 AT [...] 11 11 RE YE E 9 R ND PH BR OP AR AD MA FO [...] 2- 2- 00 L 48 KE ve ND 05 20 20 CA ME AM 45 [...] 5 60 30 TO 48 QU Ac ND 46 -1 -0 .0 TA 26 AT [...] 8- 6- 00 L 19 KE ve ND 05 20 20 CA ME AM 45 [...] 2- 6- 00 L 11 KE ve [place] 96 20 20 CA ME DE 61 [...] 11 11 RE YE E 9 R ND PH BR OP AR AD MA FO [...] 8- 8- 00 L 19 KE ve ND 05 20 20 CA ME AM 45 [...] 5 60 30 TO 48 QU Ac ND 46 -1 -0 .0 TA 26 AT [...] 2- 8- 00 L 11 KE ve [place] 96 20 20 CA ME DE 61 [...] 5 60 30 TO 48 QU Ac ND 46 -1 -1 .0 TA 26 AT [...] 2- 2- 00 L 11 KE ve [place] 96 20 20 CA ME DE 61 [...] 8- 1- 00 L 19 KE ve ND 05 20 20 CA ME AM 45 [...] 0- 0- 00 L 04 KE ve [place] 96 20 20 CA ME DE 61 [...] 8- 3- 00 L 19 KE ve ND 05 20 20 CA ME AM 45 [...] R # A PA 4 TC H ND 60 06 06 0 18 9 TO [...] 8- 6- 00 L 19 KE ve ND 05 20 20 CA ME AM 45 [...] CY G # TA 4 BL ET ND 00 05 05 0 5. 5 TO [...] 8- 8- 00 L 19 KE ve ND 05 20 20 CA ME AM 45 [...] CA # A PS 4 UL E ND 64 06 03 6 30 30 TO [...] 4- 1- 00 L 07 L ve ND 05 20 20 CA AM 45 10 [...] RD # A TA 4 BL ET ND 64 06 02 6 30 30 TO [...] 4- 7- 00 L 07 L ve ND 05 20 20 CA AM 45 10 [...] 0 20 10 TO 46 QU Ac ND 14 -0 -0 .0 TA 72 AT [...] MA TA CY BL # ET 4 ND 64 08 01 5 30 30 TO [...] 4- 9- 00 L 07 L ve ND 05 20 20 CA AM 45 10 [...] CA # A PS 4 UL E ND 60 01 01 0 24 6 TO [...] MA TA CY BL # ET 4 ND 64 08 12 5 30 30 TO [...] 4- 2- 00 L 07 L ve ND 05 20 20 CA AM 45 10 [...] MA TA CY BL # ET 4 ND 64 08 11 5 30 30 TO [...] 4- 4- 00 L 07 L ve ND 05 20 20 CA AM 45 10 10 RE RA 0 L HB PH R AR 40 MA CY MG # 4 TA BL ET ND 64 08 10 5 30 30 TO [...] MA TA CY BL # ET 4 ND 00 06 09 3 6. 32 TO [...] RD # A TA 4 BL ET ND 64 08 09 5 30 30 TO [...] AD FO TA RD BL A ET ND 64 08 08 5 30 30 45 [...] 10 0 L MG TA BL ET ND 64 06 07 6 30 30 44 PA Ac EV 76 -1 -1 .0 51 TE ti AC 40 6- 2- 00 78 L ve ID 04 20 20 [address] 3 L 30 MG CA PS UL E ND 00 06 07 3 6. 32 44 [...] 10 0 L MG TA BL ET ND 64 06 06 6 30 30 44 PA Ac EV 76 -1 -1 .0 51 TE ti AC 40 6- 6- 00 78 L ve ID 04 20 20 [address] 3 L 30 MG CA PS UL E ND 00 06 06 3 6. 32 44 [...] 0 50 09 10 RA 6 L ND 64 08 04 6 30 30 41 [...] L 25 0 MG TA BL ET ND 60 04 04 0 12 4 43 [...] 50 9- 9- 00 36 L ve ND 10 20 20 [place] 11 10 10 [...] 0 1 L MG TA BL ET ND 64 08 03 6 30 30 41 [...]
--- OUTSIDE RECORDS SUMMARY | 2017-06-12 18:33 | External Medical Summary Rpt | CCD ---
Demographics Preferred Language [place] Marital Status Unknown Mormon Affiliation Unknown Race Unknown Ethnic Group Unknown Author Author , LAURA SANCHEZ Address Unknown Phone [email or web address] Providers Care Patrol Lady Name Role Phone [facility] # Unavailable Unavailable 4, [facility] # 4 Purpose Continuity of Care Document - 11-12-2009 through 2016 Medications Na ND Rx Da Fi Fi [...] CY RD RU # A P 4 PO 00 06 10 2 30 30 TO 48 QU Ac TA 78 -2 -1 .0 TA 07 AT ti SS 15 0- 9- 00 L 05 KE ve IU 72 20 20 CA ME M 01 11 11 RE YE CL 0 R PH BR ER AR AD MA FO [address] # A ME 4 Q TA BL ET PO 60 07 10 5 30 30 TO 48 QU Ac LY 25 -2 -1 .0 TA 38 AT ti -I 80 7- 9- 00 L 90 KE ve RO 18 20 20 CA ME N 60 11 11 RE YE 15 1 R 0 PH BR FO AR AD RT MA FO E CY RD CA # A PS 4 UL E FL 00 08 10 5 60 30 TO 48 QU Ac EC 05 -1 -1 .0 TA 52 AT ti AI 40 2- 9- 00 L 79 KE ve NI 01 20 20 CA ME DE 12 11 11 RE YE 1 R AC PH BR ET AR AD AT MA FO E CY RD 10 # A 0 4 MG TA B NA 00 08 10 5 30 30 TO 48 QU Ac DO 37 -1 -1 .0 TA 52 AT ti LO 80 2- 9- 00 L 81 KE ve L 02 20 20 CA ME 20 80 11 11 RE YE 1 R MG PH BR AR AD TA MA FO BL CY RD ET # A 4 CI 65 09 10 5 30 30 TO 48 QU Ac TA 16 -1 -1 .0 TA 82 AT ti LO 20 2- 9- 00 L 48 KE ve NJ 05 20 20 CA ME AM 45 11 11 RE YE 0 R HB PH BR R AR AD [address] MG # A 4 TA BL ET LE 00 09 10 2 30 30 TO 48 QU Ac VO 37 -2 -1 .0 TA 93 AT ti TH 81 2- 9- 00 L 66 KE ve YR 81 20 20 CA ME OX 51 11 11 RE YE IN 0 R E PH BR 15 AR AD 0 MA FO MC CY RD G # A TA 4 BL ET AM [...] CY RD UL # A ES 4 AZ 00 10 10 0 3. 3 TO 49 QU Ac IT 78 -1 -1 00 TA 18 AT ti HR 11 9- 9- 0 L 87 KE ve OM 94 20 20 CA ME YC 13 11 11 RE YE IN 3 R PH BR 50 AR AD 0 MA FO MG CY RD # A TA 4 BL ET LA 55 10 10 6 30 30 TO 49 QU Ac NS 11 -0 -0 .0 TA 06 AT ti OP 10 6- 6- 00 L 79 KE ve RA 39 20 20 CA ME ZO 90 11 11 RE YE LE [address] AR AD MA FO [address] # A MG 4 CA PS UL E TR 50 10 10 6 60 30 [...] 5 60 30 TO 48 QU Ac NJ 46 -1 -0 .0 TA 26 AT [...] RD # A ST 4 RI PS DI 00 10 10 0 12 30 TO 49 QU Ac AZ 59 -0 -0 0. TA 04 AT ti EP 15 5- 5- 00 L 67 KE ve AM 62 20 20 0 CA ME 01 11 11 RE YE 10 0 R PH BR MG AR AD MA FO TA CY RD BL # A ET 4 CE 68 09 09 0 20 10 TO 49 QU Ac FU 18 -3 -3 .0 TA 00 AT ti RO 00 0- 0- 00 L 57 KE ve XI 30 20 20 CA ME ME 36 11 11 RE YE 0 R AX PH BR ET AR AD IL MA FO CY RD 50 # A 0 4 MG TA B BE 68 09 09 0 30 10 TO 49 QU Ac NZ 38 -3 -3 .0 TA 00 AT ti ON 20 0- 0- 00 L 59 KE ve AT 24 20 20 CA ME AT 80 11 11 RE YE E 1 R 20 PH BR 0 AR AD MG MA FO CY RD CA # A PS 4 UL E TO 31 07 09 2 30 30 TO 48 QU Ac RS 72 -2 -2 .0 TA 38 AT ti EM 20 7- 9- 00 L 89 KE ve ID 53 20 20 CA ME E 10 11 11 RE YE 20 1 R PH BR MG AR AD MA FO TA CY RD BL # A ET 4 GA 53 09 09 2 90 30 TO 48 QU Ac BA 74 -2 -2 .0 TA 96 AT ti PE 60 7- 7- 00 L 85 KE ve NT 10 20 20 CA ME IN 30 11 11 RE YE 5 R 40 PH BR 0 AR AD MG MA FO CY RD CA # A PS 4 UL E TI 00 09 09 5 18 30 TO 48 QU Ac ZA 18 -2 -2 0. TA 96 AT ti NI 54 7- 7- 00 L 86 KE ve DI 40 20 20 0 CA ME NE 01 11 11 RE YE 0 R HC PH BR L AR AD 4 MA FO MG CY RD # A TA 4 BL ET 00 09 09 0 12 30 TO 48 QU Ac 59 -2 -2 0. TA 96 AT ti 10 7- 7- 00 L 89 KE ve 85 20 20 0 CA ME 30 11 11 RE YE 5 R PH BR AR AD MA FO CY RD # A 4 LE 00 09 09 2 30 30 TO 48 QU Ac VO 37 -2 -2 .0 TA 93 AT ti TH 81 2- 2- 00 L 66 KE ve YR 81 20 20 CA ME OX 51 11 11 RE YE IN 0 R E PH BR 15 AR AD 0 MA FO MC CY RD G # A TA 4 BL ET AM 64 07 09 2 60 30 TO 48 QU Ac IT 76 -2 -2 .0 TA 34 AT ti IZ 40 1- 1- 00 L 58 KE ve A 24 20 20 CA ME 24 06 11 11 RE YE 0 R MC PH BR G AR AD CA MA FO PS CY RD UL # A ES 4 PO 60 07 09 5 30 [...] # A PS 4 UL E NA 00 08 09 5 30 30 TO 48 QU Ac DO 37 -1 -2 .0 TA 52 AT ti LO 80 2- 1- 00 L 81 KE ve L 02 20 20 CA ME 20 80 11 11 RE YE 1 R MG PH BR AR AD TA MA FO BL CY RD ET # A 4 FL 00 08 09 2 16 30 TO 48 QU Ac UT 05 -2 -2 .0 TA 62 AT ti IC 43 3- 1- 00 L 33 KE ve 27 20 20 CA ME ON 09 11 11 RE YE E 9 R NJ PH BR OP AR AD MA FO [address] # A MC 4 G SP RA Y PO 00 07 09 2 30 30 [...] 2- 2- 00 L 48 KE ve NJ 05 20 20 CA ME AM 45 [...] RD # A ST 4 RI PS TR 50 12 09 5 60 30 [...] 8- 6- 00 L 19 KE ve NJ 05 20 20 CA ME AM 45 [...] MG # A 4 TA BL ET DI 00 07 09 2 12 30 [...] 5 60 30 TO 48 QU Ac NJ 46 -1 -0 .0 TA 26 AT [...] 2- 6- 00 L 11 KE ve HI 96 20 20 CA ME DE 61 11 11 RE YE 0 R 40 PH BR AR AD MG MA FO CY RD TA # A BL 4 ET DI 00 08 09 0 12 30 TO 48 QU Ac AZ 59 -2 -0 0. TA 62 AT ti EP 15 3- 6- 00 L 52 KE ve AM 62 20 20 0 CA ME 01 11 11 RE YE 10 0 R PH BR MG AR AD MA FO TA CY RD BL # A ET 4 GA 53 09 09 3 90 30 TO 48 QU Ac BA 74 -0 -0 .0 TA 74 AT ti PE 60 6- 6- 00 L 73 KE ve NT 10 20 20 CA ME IN 20 11 11 RE YE 5 R 30 PH BR 0 AR AD MG MA FO CY RD CA # A PS 4 UL E AD 00 06 09 5 60 30 TO 47 QU Ac VA 17 -0 -0 0. TA 97 AT ti IR 30 9- 6- 00 L 73 KE ve 69 20 20 0 CA ME 10 50 11 11 RE YE 0- 0 R 50 PH BR AR AD DI MA FO SK CY RD US # A 4 LE 00 04 09 5 30 30 [...] 11 11 RE YE E 9 R NJ PH BR OP AR AD MA FO [...] CY RD ON # A 4 00 06 08 2 14 32 TO [...] RD ET # A 4 FL 00 04 08 [...] # 0 4 MG TA B PO 60 07 08 5 30 30 [...] TA 4 BL ET TR 50 12 08 5 60 30 TO 46 QU Ac AZ 11 -2 -0 .0 TA 35 AT ti OD 10 9- 8- 00 L 46 KE ve ON 43 20 20 CA ME E 30 10 11 RE YE 50 3 R PH BR MG AR AD MA FO TA CY RD BL # A ET 4 TI 00 04 08 5 90 30 [...] 8- 8- 00 L 19 KE ve NJ 05 20 20 CA ME AM 45 [...] 5 60 30 TO 48 QU Ac NJ 46 -1 -0 .0 TA 26 AT [...] 2- 8- 00 L 11 KE ve HI 96 20 20 CA ME DE 61 [...] CY RD BL # A ET 4 TO 31 07 07 2 30 30 [...] RD # A ST 4 RI PS LE 00 07 07 5 30 30 TO 48 QU Ac VO 52 -2 -2 .0 TA 38 AT ti TH 71 7- 7- 00 L 88 KE ve YR 34 20 20 CA ME OX 51 11 11 RE YE IN 0 R E PH BR 10 AR AD 0 MA FO MC CY RD G # A TA 4 BL ET ON 53 07 07 2 10 25 TO 48 QU Ac ET 88 -2 -2 0. TA 34 AT ti OU 50 1- 7- 00 L 63 KE ve CH 14 20 20 0 CA ME 30 11 11 RE YE DE 1 R LI PH BR CA AR AD MA FO [address] G # A LA 4 NC ET S HY 00 07 07 2 90 30 TO [address] 37 -2 -2 .0 TA 34 AT ti OX 82 1- 1- 00 L 56 KE ve YZ 58 20 20 CA ME IN 71 11 11 RE YE E 0 R HC PH BR L AR AD [address] MG # A 4 TA BL ET TO 31 07 07 2 15 30 TO 48 QU Ac RS 72 -2 -2 .0 TA 34 AT ti EM 20 1- 1- 00 L 57 KE ve ID 53 20 20 CA ME E 10 11 11 RE YE 20 1 R PH BR MG AR AD MA FO TA CY RD BL # A ET 4 AM 64 07 07 2 60 30 TO 48 QU Ac IT 76 -2 -2 .0 TA 34 AT ti IZ 40 1- 1- 00 L 58 KE ve A 24 20 20 CA ME 24 06 11 11 RE YE 0 R MC PH BR G AR AD CA MA FO PS CY RD UL # A ES 4 PO 00 07 07 2 30 30 [...] Q TA BL ET FL 00 04 07 5 60 30 TO 47 BR Ac EC 05 -2 -1 .0 TA 57 OW ti AI 40 7- 8- 00 L 94 NS ve NI 01 20 20 CA TE DE 12 11 11 RE IN 1 AC PH SH ET AR EL AT MA DO E CY N 10 # 0 4 MG TA B NA 00 04 07 5 30 30 TO 47 BR Ac DO 37 -2 -1 .0 TA 57 OW ti LO 80 7- 8- 00 L 95 NS ve L 02 20 20 CA TE 20 80 11 11 RE IN 1 MG PH SH AR EL TA MA DO BL CY N ET # 4 DI 00 07 07 0 12 30 [...] 5 60 30 TO 48 QU Ac NJ 46 -1 -1 .0 TA 26 AT [...] 2- 2- 00 L 11 KE ve HI 96 20 20 CA ME DE 61 [...] CY RD # A 4 DO 00 04 07 5 60 30 [...] 8- 1- 00 L 19 KE ve NJ 05 20 20 CA ME AM 45 [...] CA # A PS 4 UL E TR 50 12 07 5 60 30 TO 46 QU Ac AZ 11 -2 -1 .0 TA 35 AT ti OD 10 9- 1- 00 L 46 KE ve ON 43 20 20 CA ME E 30 10 11 RE YE 50 3 R PH BR MG AR AD MA FO TA CY RD BL # A ET 4 TI 00 04 07 5 90 30 TO 47 QU Ac ZA 18 -1 -1 .0 TA 48 AT ti NI 54 8- 1- 00 L 13 KE ve DI 40 20 20 CA ME NE 01 11 11 RE YE 0 R HC PH BR L AR AD 4 MA FO MG CY RD # A TA 4 BL ET LE 00 04 07 5 30 30 TO 47 PA Ac VO 52 -1 -1 .0 TA 49 TE ti TH 71 9- 1- 00 L 91 L ve YR 34 20 20 CA OX 31 11 11 RE RA IN 0 L E PH 75 AR MA MC CY G # TA 4 BL ET MU 45 06 06 0 22 30 TO 48 QU Ac PI 80 -2 -2 .0 TA 07 AT ti RO 20 0- 0- 00 L 02 KE ve CI 11 20 20 CA ME N 22 11 11 RE YE 2% 2 R PH BR OI AR AD NT MA FO ME CY RD NT # A 4 SMITH 00 06 06 0 20 10 TO 48 QU Ac LF 60 -2 -2 .0 TA 07 AT ti AM 35 0- 0- 00 L 03 KE ve ET 78 20 20 CA ME HO 12 11 11 RE YE XA 8 R ZO PH BR LE AR AD -T MA FO MP CY RD # A DS 4 TA BL ET FU 00 06 06 2 30 30 TO 48 QU Ac RO 78 -2 -2 .0 TA 07 AT ti SE 11 0- 0- 00 L 04 KE ve HI 96 20 20 CA ME DE 61 11 11 RE YE 0 R 40 PH BR AR AD MG MA FO CY RD TA # A BL 4 ET PO 00 06 06 2 30 [...] Q TA BL ET FL 00 04 06 5 60 30 TO 47 BR Ac EC 05 -2 -2 .0 TA 57 OW ti AI 40 7- 0- 00 L 94 NS ve NI 01 20 20 CA TE DE 12 11 11 RE IN 1 AC PH SH ET AR EL AT MA DO E CY N 10 # 0 4 MG TA B NA 00 04 06 5 30 30 TO 47 BR Ac DO 37 -2 -2 .0 TA 57 OW ti LO 80 7- 0- 00 L 95 NS ve L 02 20 20 CA TE 20 80 11 11 RE IN 1 MG PH SH AR EL TA MA DO BL CY N ET # 4 DI 00 06 06 0 12 30 [...] CY G # TA 4 BL ET LA 55 04 06 5 30 30 [...] 8- 3- 00 L 19 KE ve NJ 05 20 20 CA ME AM 45 [...] CA # A PS 4 UL E TR 50 12 06 5 60 30 [...] CY RD UL # A E 4 NI 00 06 06 0 28 28 TO 47 QU Ac CO 06 -1 -1 .0 TA 99 AT ti TI 75 1- 1- 00 L 73 KE ve NE 12 20 20 CA ME 61 11 11 RE YE 21 4 R PH BR MG AR AD /2 MA FO 4H CY RD R # A PA 4 TC H AM 00 06 06 0 20 10 TO 47 QU Ac OX 78 -1 -1 .0 TA 99 AT ti IC 15 0- 0- 00 L 07 KE ve IL 06 20 20 CA ME LI 10 11 11 RE YE N 1 R 87 PH BR 5 AR AD MG MA FO CY RD TA # A BL 4 ET NJ 60 06 06 0 18 9 TO 47 QU Ac OM 43 -1 -1 0. TA 99 AT ti ET 20 0- 0- 00 L 51 KE ve ANSARI 60 20 20 0 CA ME ZI 41 11 11 RE YE NE 6 R -D PH BR M AR AD SY MA FO RU CY RD P # A 4 00 06 06 2 14 32 TO [...] MG # A 4 TA BL ET FL 00 04 05 5 60 30 TO 47 BR Ac EC 05 -2 -2 .0 TA 57 OW ti AI 40 7- 4- 00 L 94 NS ve NI 01 20 20 CA TE DE 12 11 11 RE IN 1 AC PH SH ET AR EL AT MA DO E CY N 10 # 0 4 MG TA B NA 00 04 05 5 30 30 TO 47 BR Ac DO 37 -2 -2 .0 TA 57 OW ti LO 80 7- 4- 00 L 95 NS ve L 02 20 20 CA TE 20 80 11 11 RE IN 1 MG PH SH AR EL TA MA DO BL CY N ET # 4 00 05 05 0 52 12 TO 47 DO Ac 14 -2 -2 .0 TA 83 ZI ti 31 0- 4- 00 L 71 ER ve 47 20 20 CA 31 11 11 RE EM 0 IL PH Y AR J MA CY # 4 LE 00 04 05 5 30 30 TO 47 PA Ac VO 52 -1 -1 .0 TA 49 TE ti TH 71 9- 6- 00 L 91 L ve YR 34 20 20 CA OX 31 11 11 RE RA IN 0 L E PH 75 AR MA MC CY G # TA 4 BL ET DI 00 05 05 0 12 30 TO 47 PA Ac AZ 59 -1 -1 0. TA 75 TE ti EP 15 6- 6- 00 L 25 L ve AM 62 20 20 0 CA 01 11 11 RE RA 10 0 L PH MG AR MA TA CY BL # ET 4 00 05 05 0 12 30 TO 47 PA Ac 59 -1 -1 0. TA 75 TE ti 10 6- 6- 00 L 60 L ve 38 20 20 0 CA 70 11 11 RE RA 5 L PH AR MA CY # 4 VE 00 04 05 5 18 25 [...] 4 ANSARI LE R CI 65 04 05 5 15 30 TO 47 QU Ac TA 16 -1 -1 .0 TA 48 AT ti LO 20 8- 6- 00 L 19 KE ve NJ 05 20 20 CA ME AM 45 11 11 RE YE 0 R HB PH BR R AR AD [address] MG # A 4 TA BL ET IB 55 05 05 5 90 22 TO 47 QU Ac UP 11 -1 -1 .0 TA 75 AT ti RO 10 6- 6- 00 L 24 KE ve FE 68 20 20 CA ME N 40 11 11 RE YE 80 5 R 0 PH BR MG AR AD MA FO TA CY RD BL # A ET 4 GA 53 03 05 2 90 30 [...] PS 4 UL E TI 00 04 05 5 90 30 [...] TA 4 BL ET DO 00 04 05 5 60 30 TO 47 QU Ac XE 37 -1 -1 .0 TA 48 AT ti PI 86 8- 6- 00 L 15 KE ve N 41 20 20 CA ME 10 00 11 11 RE YE 0 1 R MG PH BR AR AD CA MA FO PS CY RD UL # A E 4 LA 55 04 05 5 30 30 TO 47 QU Ac NS 11 -1 -1 .0 TA 48 AT ti OP 10 8- 6- 00 L 17 KE ve RA 39 20 20 CA ME ZO 90 11 11 RE YE LE [address] AR AD MA FO [address] # A MG 4 CA PS UL E CE 68 05 05 0 20 10 TO 47 QU Ac FU 18 -1 -1 .0 TA 74 AT ti RO 00 3- 3- 00 L 04 KE ve XI 30 20 20 CA ME ME 36 11 11 RE YE 0 R AX PH BR ET AR AD IL MA FO CY RD 50 # A 0 4 MG TA B NJ 00 05 05 0 5. 5 TO 47 QU Ac ED 05 -1 -1 00 TA 74 AT ti NI 40 3- 3- 0 L 05 KE ve SO 01 20 20 CA ME NE 82 11 11 RE YE 5 R 20 PH BR AR AD MG MA FO CY RD TA # A BL 4 ET FL 00 05 05 0 3. 7 [...] BL # A ET 4 FL 00 04 04 5 60 30 TO 47 BR Ac EC 05 -2 -2 .0 TA 57 OW ti AI 40 7- 7- 00 L 94 NS ve NI 01 20 20 CA TE DE 12 11 11 RE IN 1 AC PH SH ET AR EL AT MA DO E CY N 10 # 0 4 MG TA B NA 00 04 04 5 30 30 TO 47 BR Ac DO 37 -2 -2 .0 TA 57 OW ti LO 80 7- 7- 00 L 95 NS ve L 02 20 20 CA TE 20 80 11 11 RE IN 1 MG PH SH AR EL TA MA DO BL CY N ET # 4 GA 53 03 04 2 90 30 [...] PS 4 UL E TI 00 04 04 5 90 30 TO 47 QU Ac ZA 18 -1 -1 .0 TA 48 AT ti NI 54 8- 9- 00 L 13 KE ve DI 40 20 20 CA ME NE 01 11 11 RE YE 0 R HC PH BR L AR AD 4 MA FO MG CY RD # A TA 4 BL ET LE 00 04 04 5 30 30 TO 47 PA Ac VO 52 -1 -1 .0 TA 49 TE ti TH 71 9- 9- 00 L 91 L ve YR 34 20 20 CA OX 31 11 11 RE RA IN 0 L E PH 75 AR MA MC CY G # TA 4 BL ET CI 65 04 04 5 15 30 TO 47 QU Ac TA 16 -1 -1 .0 TA 48 AT ti LO 20 8- 8- 00 L 19 KE ve NJ 05 20 20 CA ME AM 45 11 11 RE YE 0 R HB PH BR R AR AD [address] MG # A 4 TA BL ET DI 00 04 04 0 [...] # A IN 4 ANSARI LE R DO 00 02 04 2 30 15 [...] TA 4 BL ET GA 53 03 03 2 90 30 TO 47 QU Ac BA 74 -2 -2 .0 TA 20 AT ti PE 60 1- 1- 00 L 97 KE ve NT 10 20 20 CA ME IN 20 11 11 RE YE 5 R 30 PH BR 0 AR AD MG MA FO CY RD CA # A PS 4 UL E 00 03 03 0 12 30 TO 47 QU Ac 59 -1 -2 0. TA 20 AT ti 10 8- 1- 00 L 20 KE ve 38 20 20 0 CA ME 70 11 11 RE YE 5 R PH BR AR AD MA FO CY RD # A 4 NJ 64 06 03 6 30 30 TO [...] 4- 1- 00 L 07 L ve NJ 05 20 20 CA AM 45 10 [...] BL # A ET 4 LE 00 03 03 0 30 30 TO 47 PA Ac VO 52 -0 -0 .0 TA 07 TE ti TH 71 8- 8- 00 L 65 L ve YR 34 20 20 CA OX 21 11 11 RE RA IN 0 L E PH 50 AR MA MC CY G # TA 4 BL ET DO 00 02 03 2 30 15 TO 46 QU Ac XE 37 -1 -0 .0 TA 89 AT ti PI 86 7- 8- 00 L 13 KE ve N 41 20 20 CA ME 10 00 11 11 RE YE 0 1 R MG PH BR AR AD CA MA FO PS CY RD UL # A E 4 DI 00 02 02 0 90 30 TO 46 QU Ac AZ 59 -1 -2 .0 TA 89 AT ti EP 15 7- 5- 00 L 15 KE ve AM 62 20 20 CA ME 01 11 11 RE YE 10 0 R PH BR MG AR AD MA FO TA CY RD BL # A ET 4 NJ 64 06 02 6 30 30 TO [...] CY RD # A 4 TI 00 02 02 0 90 30 TO 46 QU Ac ZA 18 -2 -2 .0 TA 92 AT ti NI 54 1- 1- 00 L 04 KE ve DI 40 20 20 CA ME NE 01 11 11 RE YE 0 R HC PH BR L AR AD 4 MA FO MG CY RD # A TA 4 BL ET AZ 00 02 02 0 [...] CY RD UL # A E 4 CI 65 11 02 5 15 30 TO 45 PA Ac TA 16 -0 -1 .0 TA 82 TE ti LO 20 4- 7- 00 L 07 L ve NJ 05 20 20 CA AM 45 10 11 RE RA 0 L HB PH R AR 40 MA CY MG # 4 TA BL ET DO 00 01 02 2 60 30 [...] 0 20 10 TO 46 QU Ac NJ 14 -0 -0 .0 TA 72 AT ti OF 32 3- 3- 00 L 14 KE ve LO 03 20 20 CA ME XA 70 11 11 RE YE CI 1 R N PH BR HC AR AD L MA FO [address] 0 # A MG 4 TA B 00 01 01 0 10 27 TO 46 PA Ac 59 -2 -2 5. TA 61 TE ti 10 6- 6- 00 L 99 L ve 38 20 20 0 CA 70 11 11 RE RA 5 L PH AR MA CY # 4 DI 00 01 01 0 90 30 TO 46 PA Ac AZ 59 -2 -2 .0 TA 62 TE ti EP 15 6- 6- 00 L 00 L ve AM 62 20 20 CA 01 11 11 RE RA 10 0 L PH MG AR MA TA CY BL # ET 4 NJ 64 08 01 5 30 30 TO [...] RD # A TA 4 BL ET IB 55 01 01 0 90 30 TO 46 PA Ac UP 11 -2 -2 .0 TA 61 TE ti RO 10 5- 5- 00 L 04 L ve FE 68 20 20 CA N 40 11 11 RE RA 80 5 L 0 PH MG AR MA TA CY BL # ET 4 CI 65 11 01 5 15 30 TO 45 PA Ac TA 16 -0 -1 .0 TA 82 TE ti LO 20 4- 9- 00 L 07 L ve NJ 05 20 20 CA AM 45 10 [...] MA FO CY RD # A 4 00 01 01 0 10 8 [...] CY RD UL # A E 4 CE 68 01 01 0 30 10 TO 46 QU Ac PH 18 -1 -1 .0 TA 47 AT ti AL 00 1- 1- 00 L 15 KE ve EX 12 20 20 CA ME IN 20 11 11 RE YE 2 R 50 PH BR 0 AR AD MG MA FO CY RD CA # A PS 4 UL E NJ 60 01 01 0 24 6 TO [...] MA TA CY BL # ET 4 NJ 64 08 12 5 30 30 TO [...] 4- 2- 00 L 07 L ve NJ 05 20 20 CA AM 45 10 [...] MA TA CY BL # ET 4 NJ 64 08 11 5 30 30 TO [...] MA CY TA # BL 4 ET AZ 00 11 11 0 6. 5 TO 45 PA Ac IT 78 -0 -0 00 TA 82 TE ti HR 11 4- 4- 0 L 08 L ve OM 49 20 20 CA YC 66 10 10 RE RA IN 8 L PH 25 AR 0 MA MG CY # TA 4 BL ET 00 11 11 0 90 30 TO 45 PA Ac 59 -0 -0 .0 TA 82 TE ti 10 4- 4- 00 L 12 L ve 38 20 20 CA 70 10 10 RE RA 5 L PH AR MA CY # 4 DI 00 11 11 1 90 30 TO 45 PA Ac AZ 59 -0 -0 .0 TA 82 TE ti EP 15 4- 4- 00 L 13 L ve AM 62 20 20 CA 01 10 10 RE RA 10 0 L PH MG AR MA TA CY BL # ET 4 TI 00 11 11 1 90 30 TO 45 PA Ac ZA 18 -0 -0 .0 TA 82 TE ti NI 54 4- 4- 00 L 14 L ve DI 40 20 20 CA NE 01 10 10 RE RA 0 L HC PH L AR 4 MA MG CY # TA 4 BL ET GA 53 11 11 0 90 30 TO 45 PA Ac BA 74 -0 -0 .0 TA 82 TE ti PE 60 4- 4- 00 L 24 L ve NT 10 20 20 CA IN 10 10 10 RE RA 5 L 10 PH 0 AR MG MA CY CA # PS 4 UL E CI 65 11 11 5 15 30 TO 45 PA Ac TA 16 -0 -0 .0 TA 82 TE ti LO 20 4- 4- 00 L 07 L ve NJ 05 20 20 CA AM 45 10 10 RE RA 0 L HB PH R AR 40 MA CY MG # 4 TA BL ET NJ 64 08 10 5 30 30 TO [...] 4 BL ET 00 10 10 0 90 30 TO 45 PA Ac 59 -0 -0 .0 TA 52 TE ti 10 5- 6- 00 L 57 L ve 38 20 20 CA 70 10 10 RE RA 5 L PH AR MA CY # 4 DI 00 10 10 0 90 30 TO 45 PA Ac AZ 59 -0 -0 .0 TA 52 TE ti EP 15 5- 6- 00 L 58 L ve AM 62 20 20 CA 01 10 10 RE RA 10 0 L PH MG AR MA TA CY BL # ET 4 GA 53 10 10 0 60 [...] CY CA # PS 4 UL E NJ 00 06 09 3 6. 32 TO 44 PA Ac OV 08 -1 -2 70 TA 51 TE ti EN 51 6- 3- 0 L 77 L ve TI 13 20 20 CA L 20 10 10 RE RA HF 1 L A PH 90 AR MA MC CY G # IN 4 ANSARI LE R IB 55 07 09 1 90 30 TO 44 PA Ac UP 11 -1 -2 .0 TA 72 TE ti RO 10 2- 3- 00 L 91 L ve FE 68 20 20 CA N 40 10 10 RE RA 80 5 L 0 PH MG AR MA TA CY BL # ET 4 NJ 64 08 09 5 30 30 TO 45 QU Ac EV 76 -1 -2 .0 TA 01 AT ti AC 40 2- 3- 00 L 01 KE ve ID 04 20 20 CA ME [address] 3 R PH BR 30 AR AD MA FO MG CY RD # A CA 4 PS UL E AZ 00 09 09 0 3. 3 TO 45 QU Ac IT 78 -0 -2 00 TA 20 AT ti HR 11 2- 3- 0 L 84 KE ve OM 94 20 20 CA ME YC 13 10 10 RE YE IN 3 R PH BR 50 AR AD 0 MA FO MG CY RD # A TA 4 BL ET FL 00 09 09 0 1. 1 TO 45 QU Ac UC 17 -0 -1 00 TA 20 AT ti ON 25 2- 5- 0 L 85 KE ve AZ 41 20 20 CA ME OL 21 10 10 RE YE E 1 R 15 PH BR 0 AR AD MG MA FO CY RD TA # A BL 4 ET TR 50 08 09 2 60 30 [...] A TA 4 BL ET DI 00 08 09 1 90 30 TO 45 QU Ac AZ 59 -1 -0 .0 TA 00 AT ti EP 15 2- 9- 00 L 98 KE ve AM 62 20 20 CA ME 01 10 10 RE YE 10 0 R PH BR MG AR AD MA FO TA CY RD BL # A ET 4 00 08 09 1 90 30 TO [...] AD FO TA RD BL A ET NJ 64 08 08 5 30 30 45 [...] 5 R BR AD FO RD A TI 00 06 07 1 90 30 44 PA Ac ZA 18 -1 -1 .0 51 TE ti NI 54 6- 2- 00 80 L ve DI 40 20 20 NE 01 10 10 RA 0 L HC L 4 MG TA BL ET 00 06 07 1 90 30 44 PA Ac 59 -1 -1 .0 51 TE ti 10 6- 2- 00 81 L ve 38 20 20 70 10 10 RA 5 L AM 00 07 07 0 30 30 44 PA Ac IT 78 -1 -1 .0 72 TE ti RI 11 2- 2- 00 90 L ve PT 48 20 20 YL 81 10 10 RA IN 0 L E HC L 50 MG TA B IB 55 07 07 1 90 30 44 PA Ac UP 11 -1 -1 .0 72 TE ti RO 10 2- 2- 00 91 L ve FE 68 20 20 N 40 10 10 RA 80 5 L 0 MG TA BL ET NJ 00 06 07 3 6. 32 44 PA Ac OV 08 -1 -1 70 51 TE ti EN 51 6- 2- 0 77 L ve TI 13 20 20 L 20 10 10 RA HF 1 L A 90 MC G IN ANSARI LE R NJ 64 06 07 6 30 30 44 PA Ac EV 76 -1 -1 .0 51 TE ti AC 40 6- 2- 00 78 L ve ID 04 20 20 [address] 3 L 30 MG CA PS UL E DI 00 06 07 1 90 30 44 PA Ac AZ 59 -1 -1 .0 51 TE ti EP 15 6- 2- 00 79 L ve AM 62 20 20 01 10 10 RA 10 0 L MG TA BL ET AZ 00 06 06 0 6. 5 44 PA Ac IT 78 -1 -1 00 51 TE ti HR 11 6- 6- 0 75 L ve OM 49 20 20 YC 66 10 10 RA IN 8 L 25 0 MG TA BL ET FL 00 06 06 0 1. 1 44 PA Ac UC 17 -1 -1 00 51 TE ti ON 25 6- 6- 0 76 L ve AZ 41 20 20 OL 21 10 10 RA E 1 L 15 0 MG TA BL ET NJ 00 06 06 3 6. 32 44 PA Ac OV 08 - -1 70 51 TE ti EN 51 6- 6- 0 77 L ve TI 13 20 20 L 20 10 10 RA HF 1 L A 90 MC G IN ANSARI LE R NJ 64 06 06 6 30 30 44 PA Ac EV 76 -1 -1 .0 51 TE ti AC 40 6- 6- 00 78 L ve ID 04 20 20 [address] 3 L 30 MG CA PS UL E DI 00 06 06 1 90 30 44 PA Ac AZ 59 -1 -1 .0 51 TE ti EP 15 6- 6- 00 79 L ve AM 62 20 20 01 10 10 RA 10 0 L MG TA BL ET TI 00 06 06 1 90 30 44 PA Ac ZA 18 -1 -1 .0 51 TE ti NI 54 6- 6- 00 80 L ve DI 40 20 20 NE 01 10 10 RA 0 L HC L 4 MG TA BL ET 00 06 06 1 90 30 44 PA Ac 59 -1 -1 .0 51 TE ti 10 6- 6- 00 81 L ve 38 20 20 70 10 10 RA 5 L AM 00 06 06 0 30 30 44 PA Ac IT 78 -1 -1 .0 51 TE ti RI 11 6- 6- 00 82 L ve PT 48 20 20 YL 81 10 10 RA IN 0 L E HC L 50 MG TA B ME 50 05 06 0 14 7 44 LO Ac TR 11 -2 -0 .0 36 ti ON 10 2- 00 58 NS ve ID 33 20 [...] HC L 4 MG TA BL ET 24 10 05 3 16 54 42 PA Ac 38 -1 -0 0. 09 TE ti 50 3- 6- 00 10 L ve 58 20 20 0 50 09 10 RA 6 L TR 50 02 05 1 30 30 43 PA Ac AZ 11 -1 -0 .0 38 TE ti OD 10 8- 6- 00 58 L ve ON 44 20 20 E 10 10 10 RA 15 1 L 0 MG TA BL ET NJ 64 08 04 6 30 30 41 [...] 20 70 10 10 RA 5 L DI 00 04 04 1 90 30 43 PA Ac AZ 59 -1 -1 .0 94 TE ti EP 15 6- 6- 00 99 L ve AM 62 20 20 00 10 10 RA 10 5 L MG TA BL ET VE 00 04 04 3 18 32 43 PA Ac NT 17 -1 -1 .0 95 TE ti OL 30 6- 6- 00 02 L ve IN 68 20 20 22 10 10 RA HF 0 L A 90 MC G IN ANSARI LE R TI 00 04 04 2 60 20 43 PA Ac ZA 18 -1 -1 .0 95 TE ti NI 54 6- 6- 00 03 L ve DI 40 20 20 NE 01 10 10 RA 0 L HC L 4 MG TA BL ET AZ 00 04 04 0 4. 4 43 PA Ac IT 78 -1 -1 00 91 TE ti HR 11 3- 3- 0 29 L ve OM 49 20 20 YC 66 10 10 RA IN 8 L 25 0 MG TA BL ET NJ 60 04 04 0 12 4 43 [...] -0 .0 80 TE ti ON 20 64 L ve AT 24 20 20 AT 80 10 10 RA E 1 L 20 0 MG CA PS UL E CH 00 03 03 0 18 5 43 PA Ac ER 60 -2 -2 0. 77 TE ti AT 31 9 9- 00 39 L ve US 07 20 20 0 SI 55 10 10 RA N 8 L AC SY RU P IB 55 03 03 0 30 10 43 PA Ac UP 11 -2 -2 .0 77 TE ti RO 10 9- 9- 00 42 L ve FE 68 20 20 N 20 10 10 RA 40 5 L 0 MG TA BL ET LI 00 03 03 0 30 30 43 PA Ac SI 18 -2 -2 .0 77 TE ti NO 50 9- 9- 00 36 L ve NJ 10 20 20 IL 11 10 10 RA 0 L 10 MG TA BL ET AV 00 03 03 0 7. 7 43 PA Ac EL 08 -2 -2 00 77 TE ti OX 51 9- 9- 0 38 L ve 73 20 20 40 30 10 10 RA 0 1 L MG TA BL ET NJ 64 08 03 6 30 30 41 [...]
--- OUTSIDE RECORDS SUMMARY | 2017-06-12 18:33 | External Medical Summary Rpt | CCD ---
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 Phone [facility] # [...] 2- 9- 00 L 48 KE ve DC 05 20 20 CA ME AM 45 [...] 5 60 30 TO 48 QU Ac DC 46 -1 -0 .0 TA 26 AT [...] 11 11 RE YE E 9 R DC PH BR OP AR AD MA FO [...] 2- 2- 00 L 48 KE ve DC 05 20 20 CA ME AM 45 [...] 8- 6- 00 L 19 KE ve DC 05 20 20 CA ME AM 45 [...] 5 60 30 TO 48 QU Ac DC 46 -1 -0 .0 TA 26 AT [...] 2- 6- 00 L 11 KE ve VA 96 20 20 CA ME DE 61 [...] 11 11 RE YE E 9 R DC PH BR OP AR AD MA FO [...] 8- 8- 00 L 19 KE ve DC 05 20 20 CA ME AM 45 [...] 5 60 30 TO 48 QU Ac DC 46 -1 -0 .0 TA 26 AT [...] 2- 8- 00 L 11 KE ve VA 96 20 20 CA ME DE 61 [...] 5 60 30 TO 48 QU Ac DC 46 -1 -1 .0 TA 26 AT [...] 2- 2- 00 L 11 KE ve VA 96 20 20 CA ME DE 61 [...] 8- 1- 00 L 19 KE ve DC 05 20 20 CA ME AM 45 [...] 0- 0- 00 L 04 KE ve VA 96 20 20 CA ME DE 61 [...] 8- 3- 00 L 19 KE ve DC 05 20 20 CA ME AM 45 [...] RD TA # A BL 4 ET DC 60 06 06 0 18 9 TO [...] 8- 6- 00 L 19 KE ve DC 05 20 20 CA ME AM 45 [...] # A 0 4 MG TA B DC 00 05 05 0 5. 5 TO [...] 8- 8- 00 L 19 KE ve DC 05 20 20 CA ME AM 45 [...] MA FO CY RD # A 4 DC 64 06 03 6 30 30 TO [...] 4- 1- 00 L 07 L ve DC 05 20 20 CA AM 45 10 [...] CY RD BL # A ET 4 DC 64 06 02 6 30 30 TO [...] 4- 7- 00 L 07 L ve DC 05 20 20 CA AM 45 10 [...] 0 20 10 TO 46 QU Ac DC 14 -0 -0 .0 TA 72 AT [...] MA TA CY BL # ET 4 DC 64 08 01 5 30 30 TO [...] 4- 9- 00 L 07 L ve DC 05 20 20 CA AM 45 10 [...] CA # A PS 4 UL E DC 60 01 01 0 24 6 TO [...] MA TA CY BL # ET 4 DC 64 08 12 5 30 30 TO [...] 4- 2- 00 L 07 L ve DC 05 20 20 CA AM 45 10 [...] MA TA CY BL # ET 4 DC 64 08 11 5 30 30 TO [...] 4- 4- 00 L 07 L ve DC 05 20 20 CA AM 45 10 10 RE RA 0 L HB PH R AR 40 MA CY MG # 4 TA BL ET DC 64 08 10 5 30 30 TO [...] CY CA # PS 4 UL E DC 00 06 09 3 6. 32 TO [...] MA TA CY BL # ET 4 DC 64 08 09 5 30 30 TO [...] AD FO TA RD BL A ET DC 64 08 08 5 30 30 45 [...] 5 L 0 MG TA BL ET DC 00 06 07 3 6. 32 44 PA Ac OV 08 -1 -1 70 51 TE ti EN 51 6- 2- 0 77 L ve TI 13 20 20 L 20 10 10 RA HF 1 L A 90 MC G IN ANSARI LE R DC 64 06 07 6 30 30 44 [...] L 15 0 MG TA BL ET DC 00 06 06 3 6. 32 44 PA Ac OV 08 - -1 70 51 TE ti EN 51 6- 6- 0 77 L ve TI 13 20 20 L 20 10 10 RA HF 1 L A 90 MC G IN ANSARI LE R DC 64 06 06 6 30 30 44 [...] 1 L 0 MG TA BL ET DC 64 08 04 6 30 30 41 [...] L 25 0 MG TA BL ET DC 60 04 04 0 12 4 43 [...] 50 9- 9- 00 36 L ve DC 10 20 20 IL 11 10 10 RA 0 L 10 MG TA BL ET AV 00 03 03 0 7. 7 43 PA Ac EL 08 -2 -2 00 77 TE ti OX 51 9- 9- 0 38 L ve 73 20 20 40 30 10 10 RA 0 1 L MG TA BL ET DC 64 08 03 6 30 30 41 [...]
--- OUTSIDE RECORDS SUMMARY | 2017-06-12 18:36 | External Medical Summary Rpt | CCD ---
Demographics Preferred Language Malay Marital Status Unknown Sikhism Affiliation Unknown Race Unknown Ethnic Group Unknown Author Author , LAURA SANCHEZ Address Unknown Phone Immunization No patient found.
--- OUTSIDE RECORDS SUMMARY | 2017-06-12 18:36 | External Medical Summary Rpt | CCD ---
Demographics Preferred Language Persian Marital Status Unknown Caodaism Affiliation Unknown Race Unknown Ethnic Group Unknown Author Author , LAURA SANCHEZ Address Unknown Phone Immunization No patient found.
--- OUTSIDE RECORDS SUMMARY | 2017-06-12 18:38 | External Medical Summary Rpt ---
Author Author MCKINLEYVONDA Singh, LAURA [employer] Organization [employer]UR[employer] Address Unknown Phone Unavailable Results XR SHOULDER RIGHT 3 VIEWS Observa Value Referen Units Interpr Notes Date ti ce etation Range XR No No No No Oct 9 SHOULDE informa informa informa informa 2017 R RIGHT tion in tion in tion in tion in 2:10 PM 3 source source source source VIEWS data data data data 06/07/20 17 2:10 PM\.br\ \.br\HI STORY: - M25.511 -Pain in right shoulde r-ICD-1 0-CM\.b r\G89.2 9-Other chronic pain-IC D-10-CM \.br\\. br\TECH NIQUE: 3 views\. br\\.br \COMPAR JARON: Decembe r 25, 2007\.b r\\.br\ FINDING S:\.br\ \.br\No acute fractur e or disloca tion. 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 Moderat e acromio clavicu lar and mild glenohu meral osteoar thritis .\.br\ Fibrin D-dimer FEU [Mass/volume] in Platelet poor plasma Observa Value Referen Units Interpr Notes Date tion ce etation Range IS PATIENT ON ANTICOAGULANTS? N PTT RESULTS MUST BE CALLED IF PT ON HEPARIN!!! Y Fibrin 0 - 400 ng/mL High May 20 D-dimer alert NOTIFICAT 2017 7:20 FEU ION PM [Mass/vol RESULT ume] in The Platelet D-Dimer poor values plasma are presented in units of mass(ng/m L) ofD-Dimer units(DDU ).This test has been FDA approved as an aid in the assessmen tand evaluatio n of suspected DIC, and thromboem bolic eventsinc luding PE and DVT. However, it does not have approvalf or cut-off values for the exclusion of these condition s. INR in Blood by Coagulation assay Observa Value Referen Units Interpr Notes Date tion ce etation Range IS PATIENT ON ANTICOAGULANTS? N PTT RESULTS MUST BE CALLED IF PT ON HEPARIN!!! Y INR in 0.9 - 1.1 No Normal INDICATIO Sep 21 Blood by informati N 2016 7:20 Coagulati on in PM on assay source INR data RANGETHER APY FOR DVT, PE, ATRIAL FIB; 2.0 - 3.0PROPHY LAXIS FOR VTETHERAP Y FOR MECHANICA L HEART 2.5 - 3.5VALVE; PREVENTIO N OF SYSTEMICE MBOLISM SECONDARY TO AMI Prothromb 9.4 - SECONDS Normal No Sep 21 in time 11.8 informati 2016 7:20 (PT) in on in PM Platelet source poor data plasma by Coagulati on assay Activated partial thrombplastin time (aPTT) in Platelet poor plasma by Coagulation assay Observa Value Referen Units Interpr Notes Date tion ce etation Range IS PATIENT ON ANTICOAGULANTS? N PTT RESULTS MUST BE CALLED IF PT ON HEPARIN!!! Y Activated 23.6 - SECONDS Normal No Sep 21 partial 34.0 informati 2016 7:20 thrombpla on in PM stin time source (aPTT) data in Platelet poor plasma by Coagulati on assay Choriogonadotropin [Units/volume] in Serum or Plasma Observa Value Referen Units Interpr Notes Date tion ce etation Range Choriogon NEG No No No Sep 21 adotropin informati informati informati 2016 7:20 on in on in on in PM [Units/vo source source source lume] in data data data Serum or Plasma CBC W Auto Differential panel in Blood Observa Value Referen Units Interpr Notes Date tion ce etation Range Basophils 0 - 0.2 K/MM3 Normal No Sep 21 informati 2016 7:20 [#/volume on in PM ] in source Blood by data Automated count Basophils 0.1 - 2.0 % Normal No Sep 21 /100 informati 2016 7:20 leukocyte on in PM s in source Blood by data Automated count Eosinophi 0.0 - 0.4 K/mm3 Normal No Sep 21 ls informati 2017 7:20 [#/volume on in PM ] in source Blood by data Automated count Eosinophi 0.1 - % Normal No Sep 21 ls/100 12.0 informati 2017 7:20 leukocyte on in PM s in source Blood by data Automated count Granulocy 1.8 - 7.8 K/mm3 Normal No Sep 21 uyen informati 2017 7:20 [#/volume on in PM ] in source Blood by data Automated count Granulocy 37.0 - % Normal No Sep 21 uyen/100 80.0 informati 2017 7:20 leukocyte on in PM s in source Blood by data Automated count Hematocri 37.0 - % Normal No Sep 21 t [Volume 47.0 informati 2017 7:20 on in PM Fraction] source of Blood data Hemoglobi 12.2 - g/dL Low No Sep 21 n 16.2 informati 2017 7:20 [Mass/vol on in PM ume] in source Blood data Lymphocyt 0.7 - 4.5 K/mm3 Normal No Sep 21 es informati 2017 7:20 [#/volume on in PM ] in source Unspecifi data ed specimen by Automated count Lymphocyt 10 - 50.0 % Normal No Sep 21 es informati 2017 7:20 [#/volume on in PM ] in source Unspecifi data ed specimen by Automated count Erythrocy 27 - 31.2 pg Low No Sep 21 te mean informati 2017 7:20 corpuscul on in PM ar source hemoglobi data n [Entitic mass] Erythrocy 31.8 - g/dl Low No Sep 21 te mean 35.4 informati 2017 7:20 corpuscul on in PM ar source hemoglobi data n concentra tion [Mass/vol ume] by Automated count Erythrocy 82.2 - fl Low No Sep 21 te mean 97.8 informati 2017 7:20 corpuscul on in PM ar volume source [Entitic data volume] by Automated count Monocytes 0.1 - 1.0 K/mm3 Normal No Sep 21 informati 2017 7:20 [#/volume on in PM ] in source Blood by data Automated count Monocytes 1.7 - 9.3 % Normal No Sep 21 /100 informati 2017 7:20 leukocyte on in PM s in source Blood by data Automated count Platelet 7.4 - fl Normal No Sep 21 mean 10.4 informati 2016 7:20 volume on in PM [Entitic source volume] data in Blood by Automated count Platelets 142 - 424 K/mm3 Normal No Sep 21 informati 2016 7:20 [#/volume on in PM ] in source Blood data Erythrocy 4.2 - 5.4 M/mm3 Normal No Sep 21 uyen informati 2016 7:20 [#/volume on in PM ] in source Amniotic data fluid Erythrocy 11.5 - % High No Sep 21 te 17.5 informati 2016 7:20 distribut on in PM ion width source [Entitic data volume] by Automated count Leukocyte 4.8 - K/MM3 Normal No Sep 21 s 10.8 informati 2016 7:20 [#/volume on in PM ] in source Blood data Free T4 Observa Value Referen Units Interpr Notes Date tion ce etation Range Thyroxi 0.91 0.80 - ng/dL No No Sep 15 ne (T4) 2.00 informa informa 2017 free tion in tion in 9:03 PM [Mass/v source source olume] data data in Serum or Plasma TSH Observa Value Referen Units Interpr Notes Date tion ce etation Range Thyrotr 10.350 0.270 - mcIU/mL High No Sep 15 opin 4.200 inform2016 [Units/ tion in 9:03 PM volume] source in data Serum or Plasma Lipase Observa Value Referen Units Interpr Notes Date tion ce etation Range Lipase 24 13 - 60 IU/L No No Sep 15 Lvl informa informa 2017 tion in tion in 9:03 PM source source data data Hemogram Observa Value Referen Units Interpr Notes Date tion ce etation Range LEUKOCY 8.3 4.0 - x10(3)/ No No Sep 15 UYEN 11.0 mcL informa informa 2017 tion in tion in 8:43 PM source source data data Erythro 4.88 3.80 - x10(6)/ No No Sep 15 cytes 5.10 mcL informa informa 2016 [#/volu tion in tion in 8:43 PM me] in source source Blood data data by Automat ed count Hemoglo 11.4 12.0 - gm/dL Low No Sep 15 bin 15.6 informa 2016 [Mass/v tion in 8:43 PM olume] source in data Blood Hematoc 36.9 35.7 - % No No Sep 15 rit 45.9 informa informa 2016 [Volume tion in tion in 8:43 PM source source Fractio data data n] of Blood by Automat ed count Erythro 75.6 82.5 - fL Low No Sep 15 cyte 99.8 informa 2016 mean tion in 8:43 PM corpusc source ular data volume [Entiti c volume] by Automat ed count Erythro 23.4 27.0 - pg Low No Sep 15 cyte 34.3 informa 2016 mean tion in 8:43 PM corpusc source ular data hemoglo bin [Entiti c mass] by Automat ed count Erythro 31.0 32.1 - gm/dL Low No Sep 15 cyte 35.3 informa 2016 mean tion in 8:43 PM corpusc source ular data hemoglo bin concent ration [Mass/v olume] by Automat ed count Erythro 20.7 11.5 - % High No Sep 15 cyte 15.0 informa 2016 distrib tion in 8:43 PM ution source width data [Ratio] by Automat ed count Platele 221 144 - x10(3)/ No No Sep 15 ts 423 mcL informa informa 2016 [#/volu tion in tion in 8:43 PM me] in source source Blood data data by Automat ed count MPV 9.5 6.8 - fL No No Sep 15 10.8 informa informa 2017 tion in tion in 8:43 PM source source data data Lipid Scr Observa Value Referen Units Interpr Notes Date tion ce etation Range Cholest 145 <=200 mg/dL No < 200 Mor 12 fouzia informa 2017 [Percen tion in 8:26 PM tile] source Desirab data le\.br\ 200 - 239 Borderl ine High\.b r\>= 240 High TRIGLYC 108 <=150 mg/dL No < 150 Mor 12 ERIDES. informa 2017 TOTAL tion in Normal\ 8:26 PM source .br\150 data - 199 Borderl ine High\.b r\200 - 499 High\.b r\ >= 500 Very High CHOLEST 32 >=40 mg/dL Low > 60 Mor 12 EROLS.I 2017 N HDL Optimal 8:26 PM \.br\40 - 60 Accepta ble\.br \ < 40 Low LDL 91 <=100 mg/dL No < 100 Feb 08 Calcula informa 2017 ann tion in 8:26 PM source Optimal data \.br\10 0 - 129 Near or above optimal \.br\13 0 - 159 Borderl ine High\.b r\160 - 189 High\.b r\ >= 190 Very High Free T4 Observa Value Referen Units Interpr Notes Date tion ce etation Range Thyroxi 0.97 0.80 - ng/dL No No Feb 08 ne (T4) 2.00 informa informa 2017 free tion in tion in 8:24 PM [Mass/v source source olume] data data in Serum or Plasma TSH Observa Value Referen Units Interpr Notes Date tion ce etation Range Thyrotr 7.120 0.270 - mcIU/mL High No Feb 08 opin 4.200 informa 2016 [Units/ tion in 8:24 PM volume] source in data Serum or Plasma MISCELLANEOUS TEST Observa Value Referen Units Interpr Notes Date tion ce etation Range 01/21/17 NICKEL, BLOOD NICKEL <2.0 ng/mL REF INTERVAL: <2.0 SERUM IS THE PREFERRED SPECIMEN FOR MONITORING NICKEL EXPOSURE. NICKEL ANALYSIS PERFORMED BY INDUCTIVELY COUPLED PLASMA/MASS SPECTROMETRY (ICP/MS). THIS TEST WAS DEVELOPED AND ITS PERFORMANCE CHARACTERISTICS DETERMINED BY [employer]. IT HAS NOT BEEN CLEARED OR APPROVED BY THE [employer]. PERFORMING SITE: [facility] [address] [place] [address] DIR: MYRON SU MD 01/21/17 NICKEL, BLOOD NICKEL <2.0 ng/mL REF INTERVAL: <2.0 SERUM IS THE PREFERRED SPECIMEN FOR MONITORING NICKEL EXPOSURE. NICKEL ANALYSIS PERFORMED BY INDUCTIVELY COUPLED PLASMA/MASS SPECTROMETRY (ICP/MS). THIS TEST WAS DEVELOPED AND ITS PERFORMANCE CHARACTERISTICS DETERMINED BY [employer]. IT HAS NOT BEEN CLEARED OR APPROVED BY THE [employer]. PERFORMING SITE: [facility] [address] [place] [id number] DIR: MYRON SU MD [facility] Observa Value Referen Units Interpr Notes Date tion ce etation Range Codeine Not No No No No December 5 Detecte informa informa informa informa 2016 (cutoff d tion in tion in tion in tion in 4:31 PM 40 source source source source ng/mL)- data data data data [facility] Morphin Not No No No No January 01 e Detecte informa informa informa informa 2016 (cutoff d tion in tion in tion in tion in 4:31 PM 20 source source source source ng/mL)- data data data data [facility] 6-acety Not No No No No January 01 lmorphi Detecte informa informa informa informa 2016 ne d tion in tion in tion in tion in 4:31 PM (cutoff source source source source 20 data data data data ng/mL)- [facility] Oxycodo Not No No No No January 01 ne Detecte informa informa informa informa 2016 (cutoff d tion in tion in tion in tion in 4:31 PM 40 source source source source ng/mL)- data data data data [facility] Noroxyc Not No No No No January 01 odone Detecte informa informa informa informa 2016 (cutoff d tion in tion in tion in tion in 4:31 PM 100 source source source source ng/mL)- data data data data [facility] Oxymorp Not No No No No January 01 sloan Detecte informa informa informa informa 2016 (cutoff d tion in tion in tion in tion in 4:31 PM 40 source source source source ng/mL)- data data data data [facility] Noroxym Not No No No No January 01 orphone Detecte informa informa informa informa 2016 d tion in tion in tion in tion in 4:31 PM (cutoff source source source source 100 data data data data ng/mL)- [facility] Hydroco Present No No No No January 01 done informa informa informa informa 2016 (cutoff tion in tion in tion in tion in 4:31 PM 40 source source source source ng/mL)- data data data data [facility] Norhydr Present No No No No January 01 ocodone informa informa informa informa 2017 tion in tion in tion in tion in 4:31 PM (cutoff source source source source 100 data data data data ng/mL)- [facility] Hydromo Not No No No No January 01 rphone Detecte informa informa informa informa 2016 (cutoff d tion in tion in tion in tion in 4:31 PM 40 source source source source ng/mL)- data data data data [facility] Bupreno Not No No No No January 01 rphine Detecte informa informa informa informa 2017 (cutoff d tion in tion in tion in tion in 4:31 PM 5 source source source source ng/mL)- data data data data [facility] Norbupr Not No No No No January 01 enorphi Detecte informa informa informa informa 2017 ne d tion in tion in tion in tion in 4:31 PM (cutoff source source source source 20 data data data data ng/mL)- [facility] Fentany Not No No No No January 01 l Detecte informa informa informa informa 2016 (cutoff d tion in tion in tion in tion in 4:31 PM 2 source source source source ng/mL)- data data data data [facility] Norfent Not No No No No January 01 anyl Detecte informa informa informa informa 2016 (cutoff d tion in tion in tion in tion in 4:31 PM 2 source source source source ng/mL)- data data data data [facility] Meperid Not No No No No January 01 ine Detecte informa informa informa informa 2016 metabol d tion in tion in tion in tion in 4:31 PM ite source source source source (cutoff data data data data 50 ng/mL) Tapenta Not No No No No January 01 dol Detecte informa informa informa informa 2016 (cutoff d tion in tion in tion in tion in 4:31 PM 100 source source source source ng/mL)- data data data data [facility] Tapenta Not No No No No January 01 dol-o-S Detecte informa informa informa informa 2016 ulf d tion in tion in tion in tion in 4:31 PM (cutoff source source source source 200 data data data data ng/mL)- [facility] Methado Not No No No No January 01 ne Detecte informa informa informa informa 2017 (cutoff d tion in tion in tion in tion in 4:31 PM 150 source source source source ng/mL)- data data data data [facility] Propoxy Not No No No No January 01 phene Detecte informa informa informa informa 2016 (cutoff d tion in tion in tion in tion in 4:31 PM 300 source source source source ng/mL)- data data data data [facility] Tramado Not No No No No January 01 l Detecte informa informa informa informa 2016 (cutoff d tion in tion in tion in tion in 4:31 PM 200 source source source source ng/mL)- data data data data [facility] Ampheta Not No No No No January 01 mine Detecte informa informa informa informa 2016 (cutoff d tion in tion in tion in tion in 4:31 PM 100 source source source source ng/mL)- data data data data [facility] Methamp Not No No No No January 01 hetamin Detecte informa informa informa informa 2016 e d tion in tion in tion in tion in 4:31 PM (cutoff source source source source 400 data data data data ng/mL)- [facility] MDMA- Not No No No No January 01 Ecstasy Detecte informa informa informa informa 2017 d tion in tion in tion in tion in 4:31 PM (cutoff source source source source 200 data data data data ng/mL)- [facility] MDA Not No No No No January 01 (cutoff Detecte informa informa informa informa 2017 200 d tion in tion in tion in tion in 4:31 PM ng/mL)- source source source source [facility] data data data data MDEA- Not No No No No January 01 Demi Detecte informa informa informa informa 2016 (cutoff d tion in tion in tion in tion in 4:31 PM 200 source source source source ng/mL)- data data data data [facility] Methylp Not No No No No January 01 henidat Detecte informa informa informa informa 2017 e d tion in tion in tion in tion in 4:31 PM (cutoff source source source source 100 data data data data ng/mL)- [facility] Phenter Not No No No No January 01 mine Detecte informa informa informa informa 2017 (cutoff d tion in tion in tion in tion in 4:31 PM 100 source source source source ng/mL)- data data data data [facility] Benzoyl Not No No No No January 01 ecgonin Detecte informa informa informa informa 2017 e d tion in tion in tion in tion in 4:31 PM (cutoff source source source source 150 data data data data ng/mL)- [facility] Alprazo Not No No No No January 01 medina Detecte informa informa informa informa 2017 (cutoff d tion in tion in tion in tion in 4:31 PM 40 source source source source ng/mL)- data data data data [facility] Alpha-O Not No No No No January 01 H-Alpra Detecte informa informa informa informa 2017 zolam d tion in tion in tion in tion in 4:31 PM (cutoff source source source source 20 data data data data ng/mL)- [facility] Clonaze Not No No No No January 01 ashlie Detecte informa informa informa informa 2017 (cutoff d tion in tion in tion in tion in 4:31 PM 20 source source source source ng/mL)- data data data data [facility] 7-Amino Not No No No No January 01 clonaze Detecte informa informa informa informa 2017 ashlie d tion in tion in tion in tion in 4:31 PM (cutoff source source source source 40 data data data data ng/mL)- [facility] Diazepa Not No No No No January 01 m Detecte informa informa informa informa 2017 (cutoff d tion in tion in tion in tion in 4:31 PM 50 source source source source ng/mL)- data data data data [facility] Nordiaz Not No No No No January 01 epam Detecte informa informa informa informa 2017 (cutoff d tion in tion in tion in tion in 4:31 PM 50 source source source source ng/mL)- data data data data [facility] Oxazepa Present No No No No January 01 m informa informa informa informa 2017 (cutoff tion in tion in tion in tion in 4:31 PM 50 source source source source ng/mL)- data data data data [facility] Temazep Present No No No No January 01 am informa informa informa informa 2017 (cutoff tion in tion in tion in tion in 4:31 PM 50 source source source source ng/mL)- data data data data [facility] Lorazep Not No No No No January 01 am Detecte informa informa informa informa 2017 (cutoff d tion in tion in tion in tion in 4:31 PM 60 source source source source ng/mL)- data data data data [facility] Midazol Not No No No No January 01 am Detecte informa informa informa informa 2017 (cutoff d tion in tion in tion in tion in 4:31 PM 20 source source source source ng/mL)- data data data data [facility] Zolpide Not No No No No January 01 m Detecte informa informa informa informa 2017 (cutoff d tion in tion in tion in tion in 4:31 PM 20 source source source source ng/mL)- data data data data [facility] Barbitu Not No No No No January 01 rates Detecte informa informa informa informa 2016 (cutoff d tion in tion in tion in tion in 4:31 PM 200 source source source source ng/mL)- data data data data [facility] Creatin 42.9 20.0 - mg/dL No No January 01 ine, 400.0 informa informa 2017 Urine-A tion in tion in 4:31 PM [facility] source source data data Ethyl Not No No No No January 01 Glucuro Detecte informa informa informa informa 2017 nide d tion in tion in tion in tion in 4:31 PM (cutoff source source source source 500 data data data data ng/mL)- [facility] Marijua Not No No No No January 01 na Detecte informa informa informa informa 2016 Metabol d tion in tion in tion in tion in 4:31 PM ite source source source source (cutoff data data data data 20 ng/mL)- A PCP Not No No No No January 01 (cutoff Detecte informa informa informa informa 2016 25 d tion in tion in tion in tion in 4:31 PM ng/mL)- source source source source [facility] data data data data Carisop Not No No No \.br\January 01 rodol Detecte informa informa informa e 2017 (cut-of d tion in tion in tion in carisop 4:31 PM f 100 source source source rodol ng/mL)- data data data immunoa [facility] ssay has cross-r eactivi ty to carisop rodol\. br\and meproba mate. Pain See No No No Methodo May 5 Managem Below informa informa informa logy: 2016 ent tion in tion in tion in Qualita 4:31 PM Drug source source source tive Panel-A data data data Enzyme [facility] Immunoa ssay and Qualita tive Liquid\ .br\Chr omatogr aphy-Ti me of Flight- Mass Spectro metry, Quantit ative\. br\Spec trophot ometry\ .br\The absence of expecte d drug(s) and/or drug metabol ite(s) may\.br \indica te non-com pliance , inappro priate timing of specime n\.br\c ollecti on relativ e to drug adminis tration , poor drug absorpt ion,\.b r\dilut ed/adul terated urine, or limitat ions of testing . The\.br \concen tration must be greater than or equal to the cutoff to be\.br\ reporte d as present . If specifi c drug concent rations are\.br \requir ed, contact the laborat ory within two weeks of specime n\.br\c ollecti on to request quantif ication by a second analyti reddy\.br \techni que. Interpr etive questio ns should be directe d to the\.br \labora tory.\. br\Resu lts based on immunoa ssay detecti on that do not match clinica l\.br\e xpectat ions should be\.br\ interpr eted with caution . Confirm atory testing by mass\.b r\spect rometry for immunoa ssay-ba sed results is availab le, if\.br\ ordered within two weeks of specime n collect ion. Additio nal\.br \charge s apply.\ .br\For medical purpose s only; not valid for forensi c use.\.b r\This test was develop ed and its perform ance charact eristic s\.br\d etermin ed by MARLENE arango. The [place] Food and Drug\.b r\Admin istrati on has not approve d or cleared this test; however , FDA\.br \cleara nce or approva l is not current ly require d for clinica l use.\.b r\The results are not intende d to be used as the sole means for\.br \clinic al diagnos is or patient managem ent decisio ns. EER See No No No Access January 01 Pain Note informa informa informa [facility] 2017 Mgt tion in tion in tion in Enhance 4:31 PM Drug source source source d Panel, data data data Report High using Res/SAJAN either T U link below:\ .br\\.b r\-Dire ct access: https:/ /ExecNote/?t= [id number]\ .br\\.b r\-Ente r Usernam e, Passwor d: https:/ /ExecNote\.br \ Usernam e: [id number] \.br\ Passwor d: [id number]\ .br\Per formed by MARLENE arango,\ .br\[address] [place] [address] [phone]\. br\www. [employer], Ponce Castro MD - Lab. Directo r [facility] Observa Value Referen Units Interpr Notes Date tion ce etation Range Codeine Not No No No No Aug 28 Detecte informa informa informa informa 2015 (cutoff d tion in tion in tion in tion in 9:10 PM 40 source source source source ng/mL)- data data data data [facility] Morphin Not No No No No Aug 28 e Detecte informa informa informa informa 2015 (cutoff d tion in tion in tion in tion in 9:10 PM 20 source source source source ng/mL)- data data data data [facility] 6-acety Not No No No No Jul 30 lmorphi Detecte informa informa informa informa 2015 ne d tion in tion in tion in tion in 9:10 PM (cutoff source source source source 20 data data data data ng/mL)- [facility] Oxycodo Not No No No No Dec 30 ne Detecte informa informa informa informa 2016 (cutoff d tion in tion in tion in tion in 9:10 PM 40 source source source source ng/mL)- data data data data [facility] Noroxyc Not No No No No Dec 30 odone Detecte informa informa informa informa 2016 (cutoff d tion in tion in tion in tion in 9:10 PM 100 source source source source ng/mL)- data data data data [facility] Oxymorp Not No No No No Dec 30 sloan Detecte informa informa informa informa 2016 (cutoff d tion in tion in tion in tion in 9:10 PM 40 source source source source ng/mL)- data data data data [facility] Noroxym Not No No No No Dec 30 orphone Detecte informa informa informa informa 2016 d tion in tion in tion in tion in 9:10 PM (cutoff source source source source 100 data data data data ng/mL)- [facility] Hydroco Present No No No No Dec 30 done informa informa informa informa 2016 (cutoff tion in tion in tion in tion in 9:10 PM 40 source source source source ng/mL)- data data data data [facility] Norhydr Present No No No No Dec 30 ocodone informa informa informa informa 2016 tion in tion in tion in tion in 9:10 PM (cutoff source source source source 100 data data data data ng/mL)- [facility] Hydromo Not No No No No Dec 30 rphone Detecte informa informa informa informa 2016 (cutoff d tion in tion in tion in tion in 9:10 PM 40 source source source source ng/mL)- data data data data [facility] Bupreno Not No No No No Dec 30 rphine Detecte informa informa informa informa 2016 (cutoff d tion in tion in tion in tion in 9:10 PM 5 source source source source ng/mL)- data data data data [facility] Norbupr Not No No No No Dec 30 enorphi Detecte informa informa informa informa 2016 ne d tion in tion in tion in tion in 9:10 PM (cutoff source source source source 20 data data data data ng/mL)- [facility] Fentany Not No No No No Dec 30 l Detecte informa informa informa informa 2016 (cutoff d tion in tion in tion in tion in 9:10 PM 2 source source source source ng/mL)- data data data data [facility] Norfent Not No No No No Jul 30 anyl Detecte informa informa informa informa 2016 (cutoff d tion in tion in tion in tion in 9:10 PM 2 source source source source ng/mL)- data data data data [facility] Meperid Not No No No No Jul 30 ine Detecte informa informa informa informa 2016 metabol d tion in tion in tion in tion in 9:10 PM ite source source source source (cutoff data data data data 50 ng/mL) Tapenta Not No No No No Jul 30 dol Detecte informa informa informa informa 2016 (cutoff d tion in tion in tion in tion in 9:10 PM 100 source source source source ng/mL)- data data data data [facility] Tapenta Not No No No No Jul 30 dol-o-S Detecte informa informa informa informa 2016 ulf d tion in tion in tion in tion in 9:10 PM (cutoff source source source source 200 data data data data ng/mL)- [facility] Methado Not No No No No Jul 30 ne Detecte informa informa informa informa 2016 (cutoff d tion in tion in tion in tion in 9:10 PM 150 source source source source ng/mL)- data data data data [facility] Propoxy Not No No No No Dec 30 phene Detecte informa informa informa informa 2016 (cutoff d tion in tion in tion in tion in 9:10 PM 300 source source source source ng/mL)- data data data data [facility] Tramado Not No No No No Dec 30 l Detecte informa informa informa informa 2016 (cutoff d tion in tion in tion in tion in 9:10 PM 200 source source source source ng/mL)- data data data data [facility] Ampheta Not No No No No Dec 30 mine Detecte informa informa informa informa 2016 (cutoff d tion in tion in tion in tion in 9:10 PM 100 source source source source ng/mL)- data data data data [facility] Methamp Not No No No No Dec 30 hetamin Detecte informa informa informa informa 2016 e d tion in tion in tion in tion in 9:10 PM (cutoff source source source source 400 data data data data ng/mL)- [facility] MDMA- Not No No No No Dec 30 Ecstasy Detecte informa informa informa informa 2016 d tion in tion in tion in tion in 9:10 PM (cutoff source source source source 200 data data data data ng/mL)- [facility] MDA Not No No No No Dec 30 (cutoff Detecte informa informa informa informa 2016 200 d tion in tion in tion in tion in 9:10 PM ng/mL)- source source source source [facility] data data data data MDEA- Not No No No No Dec 30 Demi Detecte informa informa informa informa 2016 (cutoff d tion in tion in tion in tion in 9:10 PM 200 source source source source ng/mL)- data data data data [facility] Methylp Not No No No No Dec 30 henidat Detecte informa informa informa informa 2016 e d tion in tion in tion in tion in 9:10 PM (cutoff source source source source 100 data data data data ng/mL)- [facility] Phenter Not No No No No Jul 30 mine Detecte informa informa informa informa 2016 (cutoff d tion in tion in tion in tion in 9:10 PM 100 source source source source ng/mL)- data data data data [facility] Benzoyl Not No No No No Dec 30 ecgonin Detecte informa informa informa informa 2016 e d tion in tion in tion in tion in 9:10 PM (cutoff source source source source 150 data data data data ng/mL)- [facility] Alprazo Not No No No No Dec 30 medina Detecte informa informa informa informa 2016 (cutoff d tion in tion in tion in tion in 9:10 PM 40 source source source source ng/mL)- data data data data [facility] Alpha-O Not No No No No Dec 30 H-Alpra Detecte informa informa informa informa 2016 zolam d tion in tion in tion in tion in 9:10 PM (cutoff source source source source 20 data data data data ng/mL)- [facility] Clonaze Not No No No No Jul 30 ashlie Detecte informa informa informa informa 2016 (cutoff d tion in tion in tion in tion in 9:10 PM 20 source source source source ng/mL)- data data data data [facility] 7-Amino Not No No No No Dec 30 clonaze Detecte informa informa informa informa 2016 ashlie d tion in tion in tion in tion in 9:10 PM (cutoff source source source source 40 data data data data ng/mL)- [facility] Diazepa Not No No No No Dec 30 m Detecte informa informa informa informa 2016 (cutoff d tion in tion in tion in tion in 9:10 PM 50 source source source source ng/mL)- data data data data [facility] Nordiaz Not No No No No Jul 30 epam Detecte informa informa informa informa 2016 (cutoff d tion in tion in tion in tion in 9:10 PM 50 source source source source ng/mL)- data data data data [facility] Oxazepa Not No No No No Dec 30 m Detecte informa informa informa informa 2016 (cutoff d tion in tion in tion in tion in 9:10 PM 50 source source source source ng/mL)- data data data data [facility] Temazep Not No No No No Dec 30 am Detecte informa informa informa informa 2016 (cutoff d tion in tion in tion in tion in 9:10 PM 50 source source source source ng/mL)- data data data data [facility] Lorazep Not No No No No Dec 30 am Detecte informa informa informa informa 2016 (cutoff d tion in tion in tion in tion in 9:10 PM 60 source source source source ng/mL)- data data data data [facility] Midazol Not No No No No Dec 30 am Detecte informa informa informa informa 2016 (cutoff d tion in tion in tion in tion in 9:10 PM 20 source source source source ng/mL)- data data data data [facility] Zolpide Not No No No No Aug 28 m Detecte informa informa informa informa 2016 (cutoff d tion in tion in tion in tion in 9:10 PM 20 source source source source ng/mL)- data data data data [facility] Barbitu Not No No No No Aug 28 rates Detecte informa informa informa informa 2016 (cutoff d tion in tion in tion in tion in 9:10 PM 200 source source source source ng/mL)- data data data data [facility] Creatin 127.5 20.0 - mg/dL No No Aug 28 ine, 400.0 informa informa 2016 Urine-A tion in tion in 9:10 PM [facility] source source data data Ethyl Not No No No No Aug 28 Glucuro Detecte informa informa informa informa 2016 nide d tion in tion in tion in tion in 9:10 PM (cutoff source source source source 500 data data data data ng/mL)- [facility] Marijua Not No No No No Aug 28 na Detecte informa informa informa informa 2016 Metabol d tion in tion in tion in tion in 9:10 PM ite source source source source (cutoff data data data data 20 ng/mL)- A PCP Not No No No No Aug 28 (cutoff Detecte informa informa informa informa 2016 25 d tion in tion in tion in tion in 9:10 PM ng/mL)- source source source source [facility] data data data data Carisop Not No No No \.br\Aug 28 rodol Detecte informa informa informa e 2016 (cut-of d tion in tion in tion in carisop 9:10 PM f 100 source source source rodol ng/mL)- data data data immunoa [facility] ssay has cross-r eactivi ty to carisop rodol\. br\and meproba mate. Pain See No No No Methodo Aug 28 Managem Below informa informa informa logy: 2016 ent tion in tion in tion in Qualita 9:10 PM Drug source source source tive Panel-A data data data Enzyme [facility] Immunoa ssay and Qualita tive Liquid\ .br\Chr omatogr aphy-Ti me of Flight- Mass Spectro metry, Quantit ative\. br\Spec trophot ometry\ .br\The absence of expecte d drug(s) and/or drug metabol ite(s) may\.br \indica te non-com pliance , inappro priate timing of specime n\.br\c ollecti on relativ e to drug adminis tration , poor drug absorpt ion,\.b r\dilut ed/adul terated urine, or limitat ions of testing . The\.br \concen tration must be greater than or equal to the cutoff to be\.br\ reporte d as present . If specifi c drug concent rations are\.br \requir ed, contact the laborat ory within two weeks of specime n\.br\c ollecti on to request quantif ication by a second analyti reddy\.br \techni que. Interpr etive questio ns should be directe d to the\.br \labora tory.\. br\Resu lts based on immunoa ssay detecti on that do not match clinica l\.br\e xpectat ions should be\.br\ interpr eted with caution . Confirm atory testing by mass\.b r\spect rometry for immunoa ssay-ba sed results is availab le, if\.br\ ordered within two weeks of specime n collect ion. Additio nal\.br \charge s apply.\ .br\For medical purpose s only; not valid for forensi c use.\.b r\This test was develop ed and its perform ance charact eristic s\.br\d [facility]ermin ed by [facility] The [place]. Food and Drug\.b r\Admin istrati on has not approve d or cleared this test; however , FDA\.br \cleara nce or approva l is not current ly require d for clinica l use.\.b r\The results are not intende d to be used as the sole means for\.br \clinic al diagnos is or patient managem ent decisio ns. EER See No No No Access Aug 28 Pain Note informa informa informa [facility] 2016 Mgt tion in tion in tion in Enhance 9:10 PM Drug source source source d Panel, data data data Report High using Res/SAJAN either T U link below:\ .br\\.b r\-Dire ct access: [email or web address]:/ [email or web address] [id number]\ .br\\.b r\-Ente r Usernam e, Passwor d: https:/ /[email or web address]\.br \ Usernam e: [id number] *\.br\ Passwor d: qC=23\. br\Perf ormed by MARLENE arango,\ .br\[address], [facility] [place] [address] [phone]\. br\www. [employer], Charlie Hernandez MD - Lab. Directo r Lipase Observa Value Referen Units Interpr Notes Date tion ce etation Range Lipase 38 13 - 60 IU/L No No Sep 16 Lvl informa informa 2016 tion in tion in 7:47 PM source source data data Hemogram Observa Value Referen Units Interpr Notes Date tion ce etation Range LEUKOCY 7.5 4.0 - x10(3)/ No No Sep 16 UYEN 11.0 mcL informa informa 2016 tion in tion in 7:26 PM source source data data Erythro 4.69 3.80 - x10(6)/ No No Apr 16 cytes 5.10 mcL informa informa 2016 [#/volu tion in tion in 7:26 PM me] in source source Blood data data by Automat ed count Hemoglo 12.7 12.0 - gm/dL No No Sep 16 bin 15.6 informa informa 2016 [Mass/v tion in tion in 7:26 PM olume] source source in data data Blood Hematoc 40.1 35.7 - % No No Sep 16 rit 45.9 informa informa 2016 [Volume tion in tion in 7:26 PM source source Fractio data data n] of Blood by Automat ed count Erythro 85.6 82.5 - fL No No Sep 16 cyte 99.8 informa informa 2016 mean tion in tion in 7:26 PM corpusc source source ular data data volume [Entiti c volume] by Automat ed count Erythro 27.1 27.0 - pg No No Sep 16 cyte 34.3 informa informa 2016 mean tion in tion in 7:26 PM corpusc source source ular data data hemoglo bin [Entiti c mass] by Automat ed count Erythro 31.7 32.1 - gm/dL Low No Sep 16 cyte 35.3 informa 2016 mean tion in 7:26 PM corpusc source ular data hemoglo bin concent ration [Mass/v olume] by Automat ed count Erythro 19.0 11.5 - % High No Sep 16 cyte 15.0 informa 2016 distrib tion in 7:26 PM ution source width data [Ratio] by Automat ed count Platele 234 144 - x10(3)/ No No Sep 16 ts 423 mcL informa informa 2016 [#/volu tion in tion in 7:26 PM me] in source source Blood data data by Automat ed count MPV 9.8 6.8 - fL No No Sep 16 10.8 informa informa 2016 tion in tion in 7:26 PM source source data data Lipid Scr Observa Value Referen Units Interpr Notes Date tion ce etation Range Cholest 110 <=200 mg/dL No < 200 Mar 31 fouzia informa 2016 [Percen tion in 8:20 PM tile] source Desirab data le\.br\ 200 - 239 Borderl ine High\.b r\>= 240 High TRIGLYC 105 <=150 mg/dL No < 150 Mar 31 ERIDES. informa 2016 TOTAL tion in Normal\ 8:20 PM source .br\150 data - 199 Borderl ine High\.b r\200 - 499 High\.b r\ >= 500 Very High CHOLEST 46 >=40 mg/dL No > 60 Mar 2 EROLS.I informa 2016 N HDL tion in Optimal 8:20 PM source \.br\40 data - 60 Accepta ble\.br \ < 40 Low LDL 43 <=100 mg/dL No < 100 Mar 31 Calcula informa 2016 ann tion in 8:20 PM source Optimal data \.br\10 0 - 129 Near or above optimal \.br\13 0 - 159 Borderl ine High\.b r\160 - 189 High\.b r\ >= 190 Very High Free T4 Observa Value Referen Units Interpr Notes Date tion ce etation Range Thyroxi 0.83 0.93 - ng/dL Low No Mar 31 ne (T4) 1.70 inform2015 free tion in 8:20 PM [Mass/v source olume] data in Serum or Plasma TSH Observa Value Referen Units Interpr Notes Date tion ce etation Range Thyrotr 14.620 0.270 - mcIU/mL High No Mar 31 opin 4.200 informa 2015 [Units/ tion in 8:20 PM volume] source in data Serum or Plasma Hemogram Observa Value Referen Units Interpr Notes Date tion ce etation Range LEUKOCY 7.7 4.0 - x10(3)/ No No Mar 31 UYEN 11.0 mcL informa informa 2016 tion in tion in 8:11 PM source source data data Erythro 4.81 3.80 - x10(6)/ No Mar 31 cytes 5.10 mcL informa informa 2015 [#/volu tion in tion in 8:11 PM me] in source source Blood data data by Automat ed count Hemoglo 13.0 12.0 - gm/dL No Mar 31 bin 15.6 informa informa 2015 [Mass/v tion in tion in 8:11 PM olume] source source in data data Blood Hematoc 40.9 35.7 - % No Mar 31 rit 45.9 informa informa 2016 [Volume tion in tion in 8:11 PM source source Fractio data data n] of Blood by Automat ed count Erythro 85.1 82.5 - fL No No Mar 31 cyte 99.8 informa informa 2016 mean tion in tion in 8:11 PM corpusc source source ular data data volume [Entiti c volume] by Automat ed count Erythro 26.9 27.0 - pg Low No Mar 31 cyte 34.3 informa 2015 mean tion in 8:11 PM corpusc source ular data hemoglo bin [Entiti c mass] by Automat ed count Erythro 31.7 32.1 - gm/dL Low No Mar 31 cyte 35.3 informa 2015 mean tion in 8:11 PM corpusc source ular data hemoglo bin concent ration [Mass/v olume] by Automat ed count Erythro 18.0 11.5 - % High No Mar 31 cyte 15.0 2015 distrib tion in 8:11 PM ution source width data [Ratio] by Automat ed count Platele 282 144 - x10(3)/ No No Mar 31 ts 423 mcL informa informa 2015 [#/volu tion in tion in 8:11 PM me] in source source Blood data data by Automat ed count MPV 9.4 6.8 - fL No No Mar 31 10.8 informa informa 2016 tion in tion in 8:11 PM source source data data XR HIPS BILATERAL AP LATERAL W AP PELVIS Observa Value Referen Units Interpr Notes Date tion ce etation Range EXAMINA No No No No Mar 18 TION: informa informa informa informa 2015 XR HIPS tion in tion in tion in tion in 12:45 source source source source PM BILATER data data data data AL AP LATERAL W AP PELVIS\ .br\\.b r\DATE: 03/18/20 16 12:45 PM\.br\ \.br\HI STORY: Bilater al hip pain without known trauma per technol ogist.\ .br\\.b r\GAIL RISON: None.\. br\\.br \TECHNI QUE: 5 views of the pelvis/ bilater al hips.\. br\\.br \FINDIN GS: Contrac eptive wires are noted. Bowel gas obscure s the sacrum. \.br\\. br\The ischial spines are noted bilater ally suggest ing acetabu lar\.br \retrov ersion. \.br\Th ere is also suggest ion of bilater al femoral head overcov erage. These\. br\find ings\.b r\may be seen in the context of femoroa cetabul ar impinge ment. Degener ative\. br\rizo ges\.br \are noted at the bilater al femoral head and neck junctio ns bilater ally.\. br\\.br \There is no displac ed fractur e or disloca tion. Mild bilater al sacroil iac\.br \joint\ .br\ost eoarthr osis is noted.\ .br\\.b r\Degen erative entheso pathic changes are noted at the right iliopso as\.br\ inserti on at\.br\ the lesser trochan ter.\.b r\\.br\ IMPRESS ION:\.b r\\.br\ Negativ e for acute fractur e or disloca tion. There are finding s of\.br\ bilater al\.br\ acetabu lar overcov erage and retrove rsion which may be seen in the clinica l\.br\c ontext of femoroa cetabul ar impinge ment.\. br\ Perry Observa Value Referen Units Interpr Notes Date tion ce etation Range Perry Negativ Negativ No No No December 2 Screen e e informa informa informa 2016 tion in tion in tion in 6:35 PM source source source data data data Auto Diff Observa Value Referen Units Interpr Notes Date tion ce etation Range Neutrop 57.8 No % No No December 2 hils informa informa informa 2015 [#/volu tion in tion in tion in 6:27 PM me] in source source source Blood data data data by Automat ed count Lymphoc 23.0 No % No No December 2 ytes informa informa informa 2015 [#/volu tion in tion in tion in 6:27 PM me] in source source source Blood data data data by Automat ed count Monocyt 11.1 No % No No December 2 es informa informa informa 2015 [#/volu tion in tion in tion in 6:27 PM me] in source source source Blood data data data by Automat ed count Eos 7.1 No % No No December 2 Percent informa informa informa 2016 tion in tion in tion in 6:27 PM source source source data data data Baso 1.0 No % No No December 2 Percent informa informa informa 2016 tion in tion in tion in 6:27 PM source source source data data data Neut# 3.1 1.8 - x10(3)/ No No December 2 7.7 mcL informa informa 2016 tion in tion in 6:27 PM source source data data Lymph# 1.2 0.6 - x10(3)/ No No December 29 4.8 mcL informa informa 2016 tion in tion in 6:27 PM source source data data Perry# 0.6 0.0 - x10(3)/ No No December 29 1.3 mcL informa informa 2016 tion in tion in 6:27 PM source source data data Eos# 0.4 0.0 - x10(3)/ No No December 29 0.5 mcL informa informa 2016 tion in tion in 6:27 PM source source data data Baso# 0.1 0.0 - x10(3)/ No No December 29 0.2 mcL informa informa 2016 tion in tion in 6:27 PM source source data data CBC Observa Value Referen Units Interpr Notes Date tion ce etation Range LEUKOCY 5.4 4.0 - x10(3)/ No No December 29 UYEN 11.0 [facility] informa informa 2015 tion in tion in 6:27 PM source source data data Erythro 5.11 3.80 - x10(6)/ High No December 29 cytes 5.10 mcL informa 2015 [#/volu tion in 6:27 PM me] in source Blood data by Automat ed count Hemoglo 13.8 12.0 - gm/dL No December 29 bin 15.6 informa informa 2015 [Mass/v tion in tion in 6:27 PM olume] source source in data data Blood Hematoc 44.0 35.7 - % No December 29 rit 45.9 informa informa 2015 [Volume tion in tion in 6:27 PM source source Fractio data data n] of Blood by Automat ed count Erythro 86.1 82.5 - fL No December 29 cyte 99.8 informa informa 2016 mean tion in tion in 6:27 PM corpusc source source ular data data volume [Entiti c volume] by Automat ed count Erythro 27.0 27.0 - pg No No December 29 cyte 34.3 informa informa 2016 mean tion in tion in 6:27 PM corpusc source source ular data data hemoglo bin [Entiti c mass] by Automat ed count Erythro 31.4 32.1 - gm/dL Low No December 29 cyte 35.3 informa 2015 mean tion in 6:27 PM corpusc source ular data hemoglo bin concent ration [Mass/v olume] by Automat ed count Erythro 16.9 11.5 - % High No December 29 cyte 15.0 informa 2016 distrib tion in 6:27 PM ution source width data [Ratio] by Automat ed count Platele 231 144 - x10(3)/ No No December 29 ts 423 mcL informa informa 2015 [#/volu tion in tion in 6:27 PM me] in source source Blood data data by Automat ed count MPV 9.4 6.8 - fL No December 29 10.8 informa informa 2015 tion in tion in 6:27 PM source source data data XR FOOT RIGHT AP LATERAL AND OBLIQUE STANDING Observa Value Referen Units Interpr Notes Date tion ce etation Range XR FOOT No No No No Nov 26 RIGHT informa informa informa informa 2016 AP tion in tion in tion in tion in 2:13 PM LATERAL source source source source AND data data data data OBLIQUE STANDIN G 11/27/19 16 2:13 PM\.br\ \.br\HI STORY: Pain M77.9-E nthesop athy, unspeci fied-IC D-10-CM \.br\\. br\TECH NIQUE: 3 views\. br\\.br \COMPAR JARON: December 21, 2011\.b r\\.br\ FINDING S:\.br\ \.br\No acute fractur e or disloca tion. No signifi cant soft tissue swellin g.\.br\ Promine nt\.br\ plantar heel spur and [place] s tendon entheso phyte again noted. Dorsal\ .br\mid foot\.b r\spurr ing unchang ed.\.br \\.br\I MPRESSI ON:\.br \\.br\1 . Promine nt plantar heel spur, [place] s tendon entheso phyte, and dorsal\ .br\mid foot\.b r\spurr ing unchang ed from prior study.\ .br\ XR FOOT LEFT AP LATERAL AND OBLIQUE STANDING Observa Value Referen Units Interpr Notes Date tion ce etation Range \.br\XR No No No No Oct 30 FOOT informa informa informa informa 2015 LEFT AP tion in tion in tion in tion in 2:13 PM source source source source LATERAL data data data data AND OBLIQUE STANDIN G 11/27/19 16 2:13 PM\.br\ \.br\HI STORY: M77.9-E nthesop athy, unspeci fied-IC D-10-CM \.br\\. br\COMP ARISON: 11/19/19 16.\.br \\.br\T here are degener ative changes again noted. There is no acute fractur e or\.br\ disloca tion. There is a small plantar spur of the calcane us.\.br \\.br\I MPRESSI ON: Calcane al spur. No acute abnorma lity.\. br\ Lipase Observa Value Referen Units Interpr Notes Date tion ce etation Range Lipase 42 13 - 60 IU/L No No Nov 18 Lvl informa informa 2015 tion in tion in 9:00 PM source source data data Hemogram Observa Value Referen Units Interpr Notes Date tion ce etation Range LEUKOCY 7.1 4.0 - x10(3)/ No No Nov 18 UYEN 11.0 mcL informa informa 2015 tion in tion in 8:43 PM source source data data Erythro 4.53 3.80 - x10(6)/ No No Nov 18 cytes 5.10 mcL informa informa 2015 [#/volu tion in tion in 8:43 PM me] in source source Blood data data by Automat ed count Hemoglo 12.7 12.0 - gm/dL No No Nov 18 bin 15.6 informa informa 2016 [Mass/v tion in tion in 8:43 PM olume] source source in data data Blood Hematoc 39.2 35.7 - % No Nov 18 rit 45.9 informa informa 2016 [Volume tion in tion in 8:43 PM source source Fractio data data n] of Blood by Automat ed count Erythro 86.6 82.5 - fL No No Nov 18 cyte 99.8 informa informa 2016 mean tion in tion in 8:43 PM corpusc source source ular data data volume [Entiti c volume] by Automat ed count Erythro 28.1 27.0 - pg No No Nov 18 cyte 34.3 informa informa 2016 mean tion in tion in 8:43 PM corpusc source source ular data data hemoglo bin [Entiti c mass] by Automat ed count Erythro 32.4 32.1 - gm/dL No No Nov 18 cyte 35.3 informa informa 2016 mean tion in tion in 8:43 PM corpusc source source ular data data hemoglo bin concent ration [Mass/v olume] by Automat ed count Erythro 17.5 11.5 - % High No Nov 18 cyte 15.0 informa 2016 distrib tion in 8:43 PM ution source width data [Ratio] by Automat ed count Platele 257 144 - x10(3)/ No No Nov 18 ts 423 mcL informa informa 2016 [#/volu tion in tion in 8:43 PM me] in source source Blood data data by Automat ed count MPV 9.9 6.8 - fL No No Nov 18 10.8 informa informa 2016 tion in tion in 8:43 PM source source data data XR FOOT LEFT AP LATERAL AND OBLIQUE Observa Value Referen Units Interpr Notes Date tion ce etation Range \.br\XR No No No No Nov 18 FOOT informa informa informa informa 2016 LEFT AP tion in tion in tion in tion in 11:09 source source source source AM LATERAL data data data data AND OBLIQUE 11/19/19 16 11:09 AM\.br\ \.br\Cl inical: M79.672 -Pain in left foot-IC D-10-CM \.br\\. br\COMP ARISONS : 014.\.b r\\.br\ FINDING S:\.br\ \.br\Th ere is normal alignme nt of the left foot. The joint spaces are normal. \.br\Th ere\.br \is no acute fractur e. The soft tissues are normal. There is spur formati on\.br\ along\. br\the posteri or and inferio r calcane us. There is mild dorsal spurrin g of the\.br \tarsal metatar swati junctio n on the lateral radiogr aph.\.b r\\.br\ IMPRESS ION:\.b r\\.br\ There is no acute radiogr aphic abnorma lity. There is degener ative change\ .br\garland ng\.br\ the dorsal aspect of the tarsal metatar swati joint spaces. There is spur\.b r\forma tion\.b r\along the calcane us.\.br \ TSH Observa Value Referen Units Interpr Notes Date tion ce etation Range Thyrotr 17.130 0.270 - mcIU/mL High No Oct 28 opin 4.200 informa 2015 [Units/ tion in 8:17 PM volume] source in data Serum or Plasma Free T4 Observa Value Referen Units Interpr Notes Date tion ce etation Range Thyroxi 0.68 0.93 - ng/dL Low No Oct 28 ne (T4) 1.70 informa 2015 free tion in 8:17 PM [Mass/v source olume] data in Serum or Plasma Hemogram Observa Value Referen Units Interpr Notes Date tion ce etation Range LEUKOCY 6.1 4.0 - x10(3)/ No No Oct 28 UYEN 11.0 mcL informa informa 2015 tion in tion in 8:01 PM source source data data Erythro 4.49 3.80 - x10(6)/ No No Oct 28 cytes 5.10 mcL informa informa 2015 [#/volu tion in tion in 8:01 PM me] in source source Blood data data by Automat ed count Hemoglo 12.4 12.0 - gm/dL No No Oct 28 bin 15.6 informa informa 2016 [Mass/v tion in tion in 8:01 PM olume] source source in data data Blood Hematoc 39.5 35.7 - % No No Oct 28 rit 45.9 informa informa 2016 [Volume tion in tion in 8:01 PM source source Fractio data data n] of Blood by Automat ed count Erythro 87.9 82.5 - fL No No Oct 28 cyte 99.8 informa informa 2016 mean tion in tion in 8:01 PM corpusc source source ular data data volume [Entiti c volume] by Automat ed count Erythro 27.6 27.0 - pg No No Oct 28 cyte 34.3 informa informa 2016 mean tion in tion in 8:01 PM corpusc source source ular data data hemoglo bin [Entiti c mass] by Automat ed count Erythro 31.4 32.1 - gm/dL Low No Oct 28 cyte 35.3 informa 2016 mean tion in 8:01 PM corpusc source ular data hemoglo bin concent ration [Mass/v olume] by Automat ed count Erythro 18.4 11.5 - % High No Oct 28 cyte 15.0 informa 2016 distrib tion in 8:01 PM ution source width data [Ratio] by Automat ed count Platele 253 144 - x10(3)/ No No Oct 28 ts 423 mcL informa informa 2016 [#/volu tion in tion in 8:01 PM me] in source source Blood data data by Automat ed count MPV 10.0 6.8 - fL No No Oct 28 10.8 informa informa 2016 tion in tion in 8:01 PM source source data data Glu Bed Observa Value Referen Units Interpr Notes Date tion ce etation Range GLU BED 101 70 - mg/dL High No Sep 17 100 informa 2016 tion in 8:58 AM source data EK EKG 12 LEAD Observa Value Referen Units Interpr Notes Date tion ce etation Range Station No No No No Sep 17 carroll ECG informa informa informa informa 2016 tion in tion in tion in tion in 8:48 AM Study\. source source source source br\St. data data data data Elisepideh th Florenc e\.br\I nterpre tive Stateme nts\.br \SINUS RHYTHM\ .br\No prior studies availab le for compari son\.br \normal ECG\.br \Electr onicall y Signed On 09-18-19 16 20:50:2 8 EST by Myron Salgado MD RIGHT UPPER QUADRANT Observa Value Referen Units Interpr Notes Date tion ce etation Range \.br\FL No No No No Aug 12 OCEDURE informa informa informa informa 2015 : RIGHT tion in tion in tion in tion in 12:40 UPPER source source source source PM QUADRAN data data data data T ULTRASO UND, 015 12:40 PM\.br\ \.br\IN DICATIO NS: Epigast christiano abdomin al pain with nausea and vomitin g.\.br\ \.br\FI NDINGS: Right upper quadran t ultraso und. No compari son.\.b r\\.br\ The gallbla dder is abnorma l in appeara nce. It is contrac ann despite \.br\pa tient\. br\bein g nothing by mouth. Gallbla dder wall is thicken ed out of proport ion to\.br\ contrac tion measuri ng 9 mm and is also hyperec hoic. Cannot exclude \.br\ch olecyst itis. Patient has some nonspec ific right upper quadran t and\.br \epigas tric\.b r\tende rness. Probabl e diffuse hepatic steatos is. No focal hepatic lesions ..\.br\ There\. br\is no intra or extrahe patic biliary dilatat ion.\.b r\\.br\ The common duct measure s 3 mm .\.br\\ .br\Vie ws of the pancrea s are unremar kable. The right kidney shows no\.br\ hydrone phrosis \.br\an d measure s 10.8 cm in length. .\.br\\ .br\IMP RESSION : Abnorma lly thicken ed gallbla dder wall which is indeter minate. \.br\Co ntracte d gallbla dder. Cannot exclude small stones. Nonspec ific\.b r\tende rness.\ .br\Dif fuse hepatic steatos is.\.br \\.br\C ode jot stat.\. br\ Free T4 Observa Value Referen Units Interpr Notes Date tion ce etation Range Thyroxi 0.95 0.93 - ng/dL No No May 15 ne (T4) 1.70 informa informa 2014 free tion in tion in 10:49 [Mass/v source source PM olume] data data in Serum or Plasma Free T3 Observa Value Referen Units Interpr Notes Date tion ce etation Range T3 Free 3.64 2.00 - pg/mL No No May 15 4.40 informa informa 2015 tion in tion in 10:49 source source PM data data Lipid Scr Observa Value Referen Units Interpr Notes Date tion ce etation Range Cholest 114 <=200 mg/dL No < 200 Oct 15 fouzia informa 2014 [Percen tion in 10:49 tile] source Desirab PM data le\.br\ 200 - 239 Borderl ine High\.b r\>= 240 High TRIGLYC 133 <=150 mg/dL No < 150 Oct 15 ERIDES. informa 2015 TOTAL tion in Normal\ 10:49 source .br\150 PM data - 199 Borderl ine High\.b r\200 - 499 High\.b r\ >= 500 Very High CHOLEST 47 >=40 mg/dL No > 60 Oct 15 EROLS.I informa 2014 N HDL tion in Optimal 10:49 source \.br\40 PM data - 60 Accepta ble\.br \ < 40 Low LDL 40 <=100 mg/dL No < 100 Oct 15 Calcula informa 2014 ann tion in 10:49 source Optimal PM data \.br\10 0 - 129 Near or above optimal \.br\13 0 - 159 Borderl ine High\.b r\160 - 189 High\.b r\ >= 190 Very High TSH Observa Value Referen Units Interpr Notes Date tion ce etation Range Thyrotr 25.730 0.270 - mcIU/mL High No Oct 15 opin 4.200 informa 2014 [Units/ tion in 10:49 volume] source PM in data Serum or Plasma Vit D 25-OH Observa Value Referen Units Interpr Notes Date tion ce etation Range Vitamin 22.0 30.0 - ng/mL Low INTERPR Mar 12 D-25 120.0 ETIVE 2014 OH INFORMA 9:46 AM TION: Vitamin D, 25-Hydr oxy\.br \\.br\< 20 ng/mL Deficie ncy\.br \20 - 29 ng/mL Insuffi ciency\ .br\30 - 80 ng/mL Optimum Level\. br\>120 ng/mL Possibl e Toxicit y\.br\\ .br\NOT E: For infants and childre n up to 17 years of age, the optimum level is >=20 ng/mL. This assay accurat cortes quantif ies the sum of vitamin D3, 25-Hydr oxy and vitamin D2, 25-Hydr oxy. B12/ FA Observa Value Referen Units Interpr Notes Date tion ce etation Range CYANOCO 510 211 - pg/mL No No Apr 09 BALAMIN 946 informa informa 2015 .TRUE tion in tion in 10:22 source source PM data data Folic 6.90 4.50 - ng/mL No No Apr 09 Acid 37.30 informa informa 2014 Lvl tion in tion in 10:22 source source PM data data Lipid Scr Observa Value Referen Units Interpr Notes Date tion ce etation Range Cholest 217 <=200 mg/dL High < 200 Apr 09 fouzia 2015 [Percen 10:07 tile] Desirab PM le\.br\ 200 - 239 Borderl ine High\.b r\>= 240 High TRIGLYC 113 <=150 mg/dL No < 150 Apr 09 ERIDES. informa 2015 TOTAL tion in Normal\ 10:07 source .br\150 PM data - 199 Borderl ine High\.b r\200 - 499 High\.b r\ >= 500 Very High CHOLEST 40 >=40 mg/dL No > 60 Apr 09 EROLS.I informa 2015 N HDL tion in Optimal 10:07 source \.br\40 PM data - 60 Accepta ble\.br \ < 40 Low LDL 154 <=100 mg/dL High < 100 Apr 09 Calcula 2015 ann 10:07 Optimal PM \.br\10 0 - 129 Near or above optimal \.br\13 0 - 159 Borderl ine High\.b r\160 - 189 High\.b r\ >= 190 Very High Hemogram Observa Value Referen Units Interpr Notes Date tion ce etation Range LEUKOCY 8.3 4.0 - x10(3)/ No No Apr 09 UYEN 11.0 mcL informa informa 2015 tion in tion in 9:52 PM source source data data Erythro 4.90 3.80 - x10(6)/ No No Apr 09 cytes 5.10 mcL informa informa 2015 [#/volu tion in tion in 9:52 PM me] in source source Blood data data by Automat ed count Hemoglo 13.2 12.0 - gm/dL No Apr 09 bin 15.6 informa informa 2014 [Mass/v tion in tion in 9:52 PM olume] source source in data data Blood Hematoc 42.0 35.7 - % No Apr 09 rit 45.9 informa informa 2014 [Volume tion in tion in 9:52 PM source source Fractio data data n] of Blood by Automat ed count Erythro 85.7 82.5 - fL No Apr 09 cyte 99.8 informa informa 2014 mean tion in tion in 9:52 PM corpusc source source ular data data volume [Entiti c volume] by Automat ed count Erythro 27.0 27.0 - pg No Apr 09 cyte 34.3 inform informa 2014 mean tion in tion in 9:52 PM corpusc source source ular data data hemoglo bin [Entiti c mass] by Automat ed count Erythro 31.5 32.1 - gm/dL Low No Apr 09 cyte 35.3 inform2014 mean tion in 9:52 PM corpusc source ular data hemoglo bin concent ration [Mass/v olume] by Automat ed count Erythro 18.5 11.5 - % High No Apr 09 cyte 15.0 2014 distrib tion in 9:52 PM ution source width data [Ratio] by Automat ed count Platele 272 144 - x10(3)/ No No Apr 09 ts 423 mcL informa informa 2014 [#/volu tion in tion in 9:52 PM me] in source source Blood data data by Automat ed count MPV 10.2 6.8 - fL No No Apr 09 10.8 informa informa 2014 tion in tion in 9:52 PM source source data data Est Frac TMS-ARUP Observa Value Referen Units Interpr Notes Date tion ce etation Range Estradi 97.9 No pg/mL No REFEREN Sep 6 ol informa informa CE 2013 [Mass/v tion in tion in INTERVA 11:57 olume] source source L: PM in data data Estradi Serum ol by or TMS\.br Plasma \\.br\A by High ccess complet sensiti e set vity of age- method and/or gender- specifi c\.br\r eferenc e interva ls for this test in the [facility]\.br \Test Directo ry ([employer]). \.br\\. br\Test develop ed and charact eristic s determi amara by AR\.b r\Labor atories . See Complia nce Stateme nt B: [facility] Estrone 54.3 No pg/mL No REFEREN Oct 05 (E1) informa informa CE 2013 [Mass/v tion in tion in INTERVA 11:57 olume] source source L: PM in data data Estrone Serum by or TMS\.br Plasma \\.br\A ccess complet e set of age- and/or gender- specifi c\.br\r eferenc e interva ls for this test in the [facility]\.br \Test Directo ry ([employer]). \.br\\. br\Test develop ed and charact eristic s determi amara by AR\.b r\Labor atories . See Complia nce Stateme nt B: [facility] Estroge 152.2 No pg/mL No \.br\Re Oct 05 n informa informa ference 2013 [Mass/v tion in tion in 11:57 olume] source source interva PM in data data l of Serum estroge or ns in Plasma serum in adults. \.br\\. br\Fema les: Estrone Estradi ol Total Estroge ns\.br\ (pg/ml) (pg/ml) (pg/ml) \.br\Ea rly follicu lar <150 30-100 30-250\ .br\Lat e follicu lar 100-250 100-400 200-650 \.br\Bing teal <200 50-150 50-350\ .br\ Post-me nopausa l 3-32 2-21 5-52\.b r\REFER ENCE INTERVA L: Estroge ns Total Calcula tion\.b r\\.br\ Access complet e set of age- and/or gender- specifi c\.br\r eferenc e interva ls for this test in the [facility]\.br \Test Directo ry ([employer]). Free T3 Observa Value Referen Units Interpr Notes Date tion ce etation Range Triiodo 3.50 2.77 - pg/mL No No Oct 03 thyroni 5.27 informa informa 2013 ne (T3) tion in tion in 2:06 PM Free source source [Mass/v data data olume] in Serum or Plasma Glyco Observa Value Referen Units Interpr Notes Date tion ce etation Range Hemoglo 5.5 <=7.0 % No Initial Oct 03 bin informa 2013 A1c/Hem tion in Diagnos 12:56 oglobin source tic PM .total data Criteri in a\.br\< Blood 5.7 % Normal\ .br\5.7 - 6.4 % At risk for diabete s mellitu s\.br\> = 6.5 % Consist ent with diabete s mellitu s\.br\\ .br\Kaitlynn betes monitor ing\.br \Target Value (ADA recomme nded): < 7 % Vit D 25-OH Observa Value Referen Units Interpr Notes Date tion ce etation Range Calcidi 18.9 30.0 - ng/mL Low INTERPR Oct 03 ol+Calc 120.0 ETIVE 2013 iferol INFORMA 11:00 [Mass/v TION: AM olume] Vitamin in D, Serum 25-Hydr or oxy\.br Plasma \\.br\< 20 ng/mL Deficie ncy\.br \20 - 29 ng/mL Insuffi ciency\ .br\30 - 80 ng/mL Optimum Level\. br\>120 ng/mL Possibl e Toxicit y\.br\\ .br\NOT E: For infants and childre n up to 17 years of age, the optimum level is >=20 ng/mL. This assay accurat cortes quantif ies the sum of vitamin D3, 25-Hydr oxy and vitamin D2, 25-Hydr oxy. TSH Observa Value Referen Units Interpr Notes Date tion ce etation Range Thyrotr 10.0122 0.3500 mcIU/mL High No Oct 03 opin - informa 2013 [Units/ 4.9400 tion in 10:43 volume] source AM in data Serum or Plasma Free T4 Observa Value Referen Units Interpr Notes Date tion ce etation Range Thyroxi 0.87 0.70 - ng/dL No No Feb 4 ne (T4) 1.48 informa informa 2013 free tion in tion in 10:43 [Mass/v source source AM olume] data data in Serum or Plasma B12/ FA Observa Value Referen Units Interpr Notes Date tion ce etation Range CYANOCO 649 213 - pg/mL No No Feb 4 BALAMIN 816 informa informa 2013 .TRUE tion in tion in 10:33 source source AM data data Folate 9.8 7.0 - ng/mL No No Feb 4 [Mass/v 31.4 informa informa 2013 olume] tion in tion in 10:39 in source source AM Serum data data or Plasma Lipid Scr Observa Value Referen Units Interpr Notes Date tion ce etation Range Cholest 269 <=200 mg/dL High < 200 Feb 3 fouzia 2013 [Percen 11:49 tile] Desirab PM le\.br\ 200 - 239 Borderl ine High\.b r\>= 240 High TRIGLYC 164 <=150 mg/dL High < 150 Feb 3 ERIDES. 2014 TOTAL Normal\ 11:49 .br\150 PM - 199 Borderl ine High\.b r\200 - 499 High\.b r\ >= 500 Very High CHOLEST 43 >=40 mg/dL No > 60 Feb 3 EROLS.I informa 2013 N HDL tion in Optimal 11:49 source \.br\40 PM data - 60 Accepta ble\.br \ < 40 Low Cholest 193 <=100 mg/dL High < 100 Feb 3 fouzia in 2014 LDL 11:49 [Mass/v Optimal PM olume] \.br\10 in 0 - 129 Serum or Near or Plasma above by optimal calcula \.br\13 tion 0 - 159 Borderl ine High\.b r\160 - 189 High\.b r\ >= 190 Very High Testost Observa Value Referen Units Interpr Notes Date tion ce etation Range Testost 24 6 - 77 ng/dL No Feb 3 erone informa Note: 2013 [Mass/v tion in Referen 9:39 PM olume] source ce in data range Serum based or on 8:00 Plasma AM standar d. LH Observa Value Referen Units Interpr Notes Date tion ce etation Range Lutropi 7.4 No mIU/mL No Suggest Feb 3 n informa informa ed 2013 [Moles/ tion in tion in Referen 9:23 PM volume] source source ce in data data Ranges Serum (mIU/mL or )\.br\\ Plasma .br\Pos tmenopa usal Female 13 - 87\.br\ Follicu lar Phase Female 3 - 12\.br\ Luteal Phase Female 1 - 16 FSH Observa Value Referen Units Interpr Notes Date tion ce etation Range Follitr 4.9 No mIU/mL No Suggest b 3 opin informa informa ed 2013 [Moles/ tion in tion in Referen 9:23 PM volume] source source ce in data data Range Serum (mIU/mL or )\.br\\ Plasma .br\Pos tmenopa usal Female 22 - 130\.br \Follic ular Phase Female 2 - 12\.br\ Luteal Phase Female 1 - 10 Progest Observa Value Referen Units Interpr Notes Date tion ce etation Range Progest 0.5 No ng/mL No Suggest b 3 erone informa informa ed 2013 [Mass/v tion in tion in Referen 9:18 PM olume] source source ce in data data Ranges Serum or (ng/mL) Plasma \.br\\. br\Fema les:\.b r\ Follicu lar Phase 0.1 - 1.7\.br \ Luteal Phase 1.0 - 22.4\.b r\ Mid-Lut eal Phase 6.0 - 24.0\.b r\\.br\ Pregnan t Females \.br\ 4 - 12 weeks gestati on 11.0 - 43.0 Hemogram Observa Value Referen Units Interpr Notes Date tion ce etation Range LEUKOCY 11.9 4.0 - x10(3)/ High No b 3 UYEN 11.0 mcL informa 2013 tion in 8:29 PM source data Erythro 4.37 3.80 - x10(6)/ No No Feb 3 cytes 5.10 mcL informa informa 2013 [#/volu tion in tion in 8:29 PM me] in source source Blood data data by Automat ed count Hemoglo 13.8 12.0 - gm/dL No No Feb 3 bin 15.6 informa informa 2014 [Mass/v tion in tion in 8:29 PM olume] source source in data data Blood Hematoc 41.4 35.7 - % No No Feb 3 rit 45.9 informa informa 2013 [Volume tion in tion in 8:29 PM source source Fractio data data n] of Blood by Automat ed count Erythro 94.9 82.5 - fL No No Feb 3 cyte 99.8 informa informa 2014 mean tion in tion in 8:29 PM corpusc source source ular data data volume [Entiti c volume] by Automat ed count Erythro 31.6 27.0 - pg No No Feb 3 cyte 34.3 informa informa 2013 mean tion in tion in 8:29 PM corpusc source source ular data data hemoglo bin [Entiti c mass] by Automat ed count Erythro 33.3 32.1 - gm/dL No No Feb 3 cyte 35.3 informa informa 2013 mean tion in tion in 8:29 PM corpusc source source ular data data hemoglo bin concent ration [Mass/v olume] by Automat ed count Erythro 13.2 11.5 - % No No Feb 3 cyte 15.0 informa informa 2013 distrib tion in tion in 8:29 PM ution source source width data data [Ratio] by Automat ed count Platele 242 144 - x10(3)/ No No Feb 3 ts 423 mcL informa informa 2013 [#/volu tion in tion in 8:29 PM me] in source source Blood data data by Automat ed count Platele 10.1 6.8 - fL No No Feb 3 t mean 10.8 informa informa 2014 volume tion in tion in 8:29 PM [Entiti source source c data data volume] in Blood by Automat ed count Flu A/B Observa Value Referen Units Interpr Notes Date tion ce etation Range Influen Negativ No No No Negativ Sep 29 za e informa informa informa e 2014 virus A tion in tion in tion in results 5:36 PM Ag source source source in [Presen data data data patient ce] in s with Unspeci high fied clinica specime l n suspici on should be verfied with RT-PCR, availab le as Respira tory Viral Mini Panel in Epic.\. br\\.br \The WHO recomme nds molecul ar testing (Respir atory Viral DNA Test) during periods of low influen za activit y instead of rapid tests. Should rapid tests be used, then both positiv e and negativ e test results should be confirm ed by a molecul ar method. The WHO also recomme nds confirm atory testing by a molecul ar method (Respir atory Viral DNA Test) for all negativ e rapid test results during seasona l occurre nce of influen za. Influen Negativ No No No No Sep 29 za e informa informa informa informa 2014 virus B tion in tion in tion in tion in 5:36 PM Ag source source source source [Presen data data data data ce] in Unspeci fied specime n Glu Bed Observa Value Referen Units Interpr Notes Date tion ce etation Range Glucose 101 70 - mg/dL High No Sep 29 100 informa 2013 [Mass/v tion in 5:15 PM olume] source in data Blood by Test strip manual XR FOOT LEFT AP LATERAL AND OBLIQUE Observa Value Referen Units Interpr Notes Date tion ce etation Range PROCEDU No No No No Sep 20 RE: informa informa informa informa 2014 Three-v tion in tion in tion in tion in 7:50 PM iew source source source source left data data data data foot and toes, 09/20/19 14.\.br \\.br\I NDICATI ON: Injury, pain.\. br\\.br \FINDIN GS: AP, lateral , and oblique views of the left foot and toes.\. br\Comp arison 11/11/19 12.\.br \Stable plantar and Gonzalez s calcane al spurs. No acute fractur e or\.br\ malalig nment. Tendino us\.br\ calcifi cation lateral to the cuboid. No worriso me bony lesion or\.br\ radiopa que foreign body.\. br\\.br \IMPRES OMID: No acute bony finding s in the left foot or toes. Lipase Observa Value Referen Units Interpr Notes Date tion ce etation Range Lipase 172 36 - IU/L No No Sep 20 [Enzyma 250 informa informa 2013 tic tion in tion in 8:03 PM activit source source y/volum data data e] in Serum or Plasma Auto Diff Observa Value Referen Units Interpr Notes Date tion ce etation Range Neutrop 57.9 No % No No Sep 20 hils informa informa informa 2013 [#/volu tion in tion in tion in 7:53 PM me] in source source source Blood data data data by Automat ed count Lymphoc 31.0 No % No No Sep 20 ytes informa informa informa 2013 [#/volu tion in tion in tion in 7:53 PM me] in source source source Blood data data data by Automat ed count Monocyt 6.5 No % No No Sep 20 es informa informa informa 2013 [#/volu tion in tion in tion in 7:53 PM me] in source source source Blood data data data by Automat ed count Eosinop 3.7 No % No No Sep 20 hils/10 informa informa informa 2014 0 tion in tion in tion in 7:53 PM leukocy source source source uyen in data data data Blood by Automat ed count Basophi 0.9 No % No No Sep 20 ls/100 informa informa informa 2014 leukocy tion in tion in tion in 7:53 PM uyen in source source source Blood data data data by Automat ed count Neutrop 4.9 1.8 - x10(3)/ No No Sep 20 hils 7.7 mcL informa informa 2013 [#/volu tion in tion in 7:53 PM me] in source source Blood data data by Automat ed count Lymphoc 2.6 0.6 - x10(3)/ No No Sep 20 ytes 4.8 mcL informa informa 2013 [#/volu tion in tion in 7:53 PM me] in source source Blood data data Monocyt 0.6 0.0 - x10(3)/ No No Sep 20 es 1.3 mcL informa informa 2013 [#/volu tion in tion in 7:53 PM me] in source source Blood data data by Automat ed count Eosinop 0.3 0.0 - x10(3)/ No No Sep 20 hils 0.5 mcL informa informa 2013 [#/volu tion in tion in 7:53 PM me] in source source Blood data data Basophi 0.1 0.0 - x10(3)/ No No Sep 20 ls 0.2 mcL informa informa 2013 [#/volu tion in tion in 7:53 PM me] in source source Blood data data by Manual count CBC Observa Value Referen Units Interpr Notes Date tion ce etation Range LEUKOCY 8.5 4.0 - x10(3)/ No No Sep 20 UYEN 11.0 mcL informa informa 2013 tion in tion in 7:53 PM source source data data Erythro 4.61 3.80 - x10(6)/ No No Sep 20 cytes 5.10 mcL informa informa 2013 [#/volu tion in tion in 7:53 PM me] in source source Blood data data by Automat ed count Hemoglo 14.2 12.0 - gm/dL No No Sep 20 bin 15.6 informa informa 2013 [Mass/v tion in tion in 7:53 PM olume] source source in data data Blood Hematoc 43.1 35.7 - % No No Sep 20 rit 45.9 informa informa 2013 [Volume tion in tion in 7:53 PM source source Fractio data data n] of Blood by Automat ed count Erythro 93.6 82.5 - fL No No Sep 20 cyte 99.8 informa informa 2013 mean tion in tion in 7:53 PM corpusc source source ular data data volume [Entiti c volume] by Automat ed count Erythro 30.8 27.0 - pg No No Sep 20 cyte 34.3 informa informa 2013 mean tion in tion in 7:53 PM corpusc source source ular data data hemoglo bin [Entiti c mass] by Automat ed count Erythro 32.9 32.1 - gm/dL No No Sep 20 cyte 35.3 informa informa 2014 mean tion in tion in 7:53 PM corpusc source source ular data data hemoglo bin concent ration [Mass/v olume] by Automat ed count Erythro 13.2 11.5 - % No No Sep 20 cyte 15.0 informa informa 2014 distrib tion in tion in 7:53 PM ution source source width data data [Ratio] by Automat ed count Platele 207 144 - x10(3)/ No No Sep 20 ts 423 mcL informa informa 2013 [#/volu tion in tion in 7:53 PM me] in source source Blood data data by Automat ed count Platele 10.4 6.8 - fL No No Sep 20 t mean 10.8 informa informa 2014 volume tion in tion in 7:53 PM [Entiti source source c data data volume] in Blood by Automat ed count Lipase Observa Value Referen Units Interpr Notes Date tion ce etation Range Lipase 69 36 - IU/L No No Aug 14 Lvl 250 informa informa 2012 tion in tion in 4:38 PM source source data data Auto Diff Observa Value Referen Units Interpr Notes Date tion ce etation Range Neutrop 72.6 No % No No Aug 14 hils informa informa informa 2012 [#/volu tion in tion in tion in 4:26 PM me] in source source source Blood data data data by Automat ed count Lymphoc 20.2 No % No No Aug 14 ytes informa informa informa 2012 [#/volu tion in tion in tion in 4:26 PM me] in source source source Blood data data data by Automat ed count Monocyt 6.1 No % No No Aug 14 es informa informa informa 2012 [#/volu tion in tion in tion in 4:26 PM me] in source source source Blood data data data by Automat ed count Eos 0.4 No % No No Aug 14 Percent informa informa informa 2013 tion in tion in tion in 4:26 PM source source source data data data Baso 0.7 No % No No Aug 14 Percent informa informa informa 2013 tion in tion in tion in 4:26 PM source source source data data data Neutrop 7.2 1.8 - x10(3)/ No No Aug 14 hils 7.7 mcL informa informa 2012 [#/volu tion in tion in 4:26 PM me] in source source Blood data data Lymphoc 2.0 0.6 - x10(3)/ No Aug 14 ytes 4.8 mcL informa informa 2012 [#/volu tion in tion in 4:26 PM me] in source source Blood data data Monocyt 0.6 0.0 - x10(3)/ No Aug 14 es 1.3 mcL informa informa 2012 [#/volu tion in tion in 4:26 PM me] in source source Blood data data Eosinop 0.0 0.0 - x10(3)/ No No Aug 14 hils 0.5 mcL informa informa 2012 [#/volu tion in tion in 4:26 PM me] in source source Blood data data Basophi 0.1 0.0 - x10(3)/ No Aug 14 ls 0.2 mcL informa informa 2012 [#/volu tion in tion in 4:26 PM me] in source source Blood data data CBC Observa Value Referen Units Interpr Notes Date tion ce etation Range LEUKOCY 9.9 4.0 - x10(3)/ No Aug 14 UYEN 11.0 mcL informa informa 2012 tion in tion in 4:26 PM source source data data Erythro 4.99 3.80 - x10(6)/ No Aug 14 cytes 5.10 mcL informa informa 2012 [#/volu tion in tion in 4:26 PM me] in source source Blood data data by Automat ed count Hemoglo 15.5 12.0 - gm/dL No Aug 14 bin 15.6 informa informa 2012 [Mass/v tion in tion in 4:26 PM olume] source source in data data Blood Hematoc 47.2 35.7 - % High Aug 14 rit 45.9 informa 2012 [Volume tion in 4:26 PM source Fractio data n] of Blood by Automat ed count Erythro 94.6 82.5 - fL No Aug 14 cyte 99.8 informa informa 2012 mean tion in tion in 4:26 PM corpusc source source ular data data volume [Entiti c volume] by Automat ed count Erythro 31.1 27.0 - pg No Aug 14 cyte 34.3 informa informa 2012 mean tion in tion in 4:26 PM corpusc source source ular data data hemoglo bin [Entiti c mass] by Automat ed count Erythro 32.9 32.1 - gm/dL No Aug 14 cyte 35.3 informa informa 2012 mean tion in tion in 4:26 PM corpusc source source ular data data hemoglo bin concent ration [Mass/v olume] by Automat ed count Erythro 14.3 11.5 - % No Aug 14 cyte 15.0 informa informa 2012 distrib tion in tion in 4:26 PM ution source source width data data [Ratio] by Automat ed count Platele 275 144 - x10(3)/ No Aug 14 ts 423 mcL informa informa 2012 [#/volu tion in tion in 4:26 PM me] in source source Blood data data by Automat ed count Platele 9.5 6.8 - fL No Aug 14 t mean 10.8 informa informa 2012 volume tion in tion in 4:26 PM [Entiti source source c data data volume] in Blood BMP Observa Value Referen Units Interpr Notes Date tion ce etation Range Sodium 140 135 - mmol/L No No Jun 10 [Moles/ 143 informa informa 2012 volume] tion in tion in 2:39 PM in source source Serum data data or Plasma Potassi 4.4 3.5 - mmol/L No No Jun 10 um 5.0 informa informa 2012 [Moles/ tion in tion in 2:39 PM volume] source source in data data Serum or Plasma Chlorid 107 98 - mmol/L No No Jun 10 e 108 informa informa 2012 [Moles/ tion in tion in 2:39 PM volume] source source in data data Serum or Plasma Carbon 21 22 - 31 mmol/L Low No Jun 10 dioxide informa 2012 , total tion in 2:39 PM source [Moles/ data volume] in Serum or Plasma Anion 12 7 - 16 mmol/L No No Jun 10 gap in informa informa 2012 Serum tion in ti in 2:39 PM or source source Plasma data data CALCIUM 9.3 8.6 - mg/dL No No Jun 10 .TOTAL 10.3 informa informa 2012 tion in tion in 2:39 PM source source data data Glucose 96 70 - mg/dL No No Jun 10 100 informa informa 2012 [Mass/v tion in tion in 2:39 PM olume] source source in data data Serum or Plasma Urea 16 7 - 19 mg/dL No No Jun 10 nitroge informa informa 2012 n tion in tion in 2:39 PM [Mass/v source source olume] data data in Serum or Plasma Creatin 1.5 0.6 - mg/dL High No Jun 10 ine 1.0 informa 2012 [Mass/v tion in 2:39 PM olume] source in data Serum or Plasma GFR Afr 47 No No No GFR is Oct 12 Am informa informa informa estimat 2012 tion in tion in tion in ed 2:39 PM source source source using data data data creatin ine, age, gender, and race. GFR\.br \has been validat ed for patient s between 18 and 70 years of age.\.b r\GFR has not been validat ed for pregnan t women, patient s with\.b r\toya us comorbi d conditi ons, or persons with extreme s of body\.b r\size, muscle mass, or nutriti onal status. For additio nal\.br \inform ation: [email or web address] .\.br\\ .br\Chr onic kidney disease stage GFR (ml/min /1.73 square meters) \.br\-- ------- ------- ------- ------- ----- ------- ------- ------- ------- ------- ------\ .br\ Stage 3 30 - 59\.br\ Stage 4 15 - 29\.br\ Stage 5 14 or less GFR Non 39 No No No No May 12 Afr Am informa informa informa informa 2013 tion in tion in tion in tion in 2:39 PM source source source source data data data data Auto Diff Observa Value Referen Units Interpr Notes Date tion ce etation Range Neutrop 73.6 No % No No May 12 hils informa informa informa 2012 [#/volu tion in tion in tion in 2:02 PM me] in source source source Blood data data data by Automat ed count Lymphoc 16.5 No % No No May 12 ytes informa informa informa 2012 [#/volu tion in tion in tion in 2:02 PM me] in source source source Blood data data data by Automat ed count Monocyt 4.3 No % No No May 12 es informa informa informa 2012 [#/volu tion in tion in tion in 2:02 PM me] in source source source Blood data data data by Automat ed count Eos 5.0 No % No No May 12 Percent informa informa informa 2013 tion in tion in tion in 2:02 PM source source source data data data Baso 0.6 No % No No May 12 Percent informa informa informa 2013 tion in tion in tion in 2:02 PM source source source data data data Neutrop 10.2 1.8 - x10(3)/ High No May 12 hils 7.7 mcL informa 2012 [#/volu tion in 2:02 PM me] in source Blood data Lymphoc 2.3 0.6 - x10(3)/ No No May 12 ytes 4.8 mcL informa informa 2012 [#/volu tion in tion in 2:02 PM me] in source source Blood data data Monocyt 0.6 0.0 - x10(3)/ No No May 12 es 1.3 mcL informa informa 2012 [#/volu tion in tion in 2:02 PM me] in source source Blood data data Eosinop 0.7 0.0 - x10(3)/ High No May 12 hils 0.5 mcL informa 2012 [#/volu tion in 2:02 PM me] in source Blood data Basophi 0.1 0.0 - x10(3)/ No No May 12 ls 0.2 mcL informa informa 2012 [#/volu tion in tion in 2:02 PM me] in source source Blood data data CBC Observa Value Referen Units Interpr Notes Date tion ce etation Range LEUKOCY 13.8 4.0 - x10(3)/ High No Jun 10 UYEN 11.0 mcL informa 2012 tion in 2:02 PM source data Erythro 4.76 3.80 - x10(6)/ No No Jun 10 cytes 5.10 mcL informa informa 2012 [#/volu tion in tion in 2:02 PM me] in source source Blood data data by Automat ed count Hemoglo 15.0 12.0 - gm/dL No No Jun 10 bin 15.6 informa informa 2012 [Mass/v tion in tion in 2:02 PM olume] source source in data data Blood Hematoc 45.0 35.7 - % No No Jun 10 rit 45.9 informa informa 2012 [Volume tion in tion in 2:02 PM source source Fractio data data n] of Blood by Automat ed count Erythro 94.6 82.5 - fL No No Jun 10 cyte 99.8 informa informa 2012 mean tion in tion in 2:02 PM corpusc source source ular data data volume [Entiti c volume] by Automat ed count Erythro 31.6 27.0 - pg No No Jun 10 cyte 34.3 informa informa 2012 mean tion in tion in 2:02 PM corpusc source source ular data data hemoglo bin [Entiti c mass] by Automat ed count Erythro 33.4 32.1 - gm/dL No No Jun 10 cyte 35.3 informa informa 2013 mean tion in tion in 2:02 PM corpusc source source ular data data hemoglo bin concent ration [Mass/v olume] by Automat ed count Erythro 13.5 11.5 - % No No Jun 10 cyte 15.0 informa informa 2012 distrib tion in tion in 2:02 PM ution source source width data data [Ratio] by Automat ed count Platele 244 144 - x10(3)/ No No Jun 10 ts 423 mcL informa informa 2012 [#/volu tion in tion in 2:02 PM me] in source source Blood data data by Automat ed count Platele 10.6 6.8 - fL No No Jun 10 t mean 10.8 informa informa 2013 volume tion in tion in 2:02 PM [Entiti source source c data data volume] in Blood XR ANKLE RIGHT AP AND LATERAL Observa Value Referen Units Interpr Notes Date tion ce etation Range TEXT Right No No No No Nov 10 DIAGNOS ankle informa informa informa informa 2012 IS 2views: tion in tion in tion in tion in 1:30 PM BATTERY Mar source source source source 14, data data data data 2012 01:33:2 0 PM\.br\ \.br\HI STORY: 719.47- Pain in joint, ankle and foot-IC D-9-CM\ .br\\.b r\IMPRE SSION: No signifi cant osseous , joint or soft tissue abnorma lity is\.br\ seen. XR TIBIA FIBULA LEFT AP AND LATERAL Observa Value Referen Units Interpr Notes Date ti ce etation Range TEXT Tibia No No No No Nov 10 DIAGNOS and informa informa informa informa 2012 IS fibula tion in tion in tion in tion in 1:30 PM BATTERY left 2 source source source source views\. data data data data br\\.br \HISTOR Y: contusi on.\.br \\.br\I MPRESSI ON:\.br \\.br\N o fractur e. No disloca tion XR TIBIA FIBULA RIGHT AP AND LATERAL Observa Value Referen Units Interpr Notes Date ti ce etation Range TEXT Two-vie No No No No Nov 10 DIAGNOS w tibia informa informa informa informa 2012 IS and tion in tion in tion in tion in 1:30 PM BATTERY fibula source source source source right\. data data data data br\\.br \HISTOR Y: contusi on.\.br \\.br\I MPRESSI ON:\.br \\.br\N o fractur e. No disloca tion. EK EKG 12 LEAD Observa Value Referen Units Interpr Notes Date ti ce etation Range Sinus No No No No Aug 26 rhythmE informa informa informa informa 2011 xtensiv tion in tion in tion in tion in 9:[address]-T source source source source changes data data data data suggest myocard ial infarct Low QRS voltage s in precord ial leadsAb normal ECG XR LUMBAR SPINE AP AND LATERAL Observa Value Referen Units Interpr Notes Date tion ce etation Range TEXT Lumbar No No No No Jul 24 DIAGNOS spine, informa informa informa informa 2011 IS 3 tion in tion in tion in ti in 12:31 BATTERY views, source source source source PM 1208 data data data data 25 Novembe r 12, [id number] Pain, compari son 2010The re are 5 lumbar vertebr ae and they are normal in shape and alignme nt.Ther e is no fractur e,sublu xation, destruc tive lesion, or arthrit is.Impr ession, NormalM arks XR KNEE LEFT AP LAT INT EXT OBLIQUES AND SUNRISE Observa Value Referen Units Interpr Notes Date ti ce etation Range TEXT Left No No No No Jul 24 DIAGNOS knee, 5 informa informa informa informa 2011 IS views, tion in tion in tion in ti in 12:31 BATTERY 1219 source source source source PM 25 data data data data Novembe r 12, [id number] Trauma, pain, no priorsT here is idiopat hic patella r hyperos tosis. There is no arthrit is. There isno fractur e,destr uctive lesion, or joint effusio n.Impre ssion,N ormalMa rks MRI KNEE RIGHT WO CONTRAST Observa Value Referen Units Interpr Notes Date ti ce etation Range TEXT EXAMINA No No No No Apr 19 DIAGNOS TION IS informa informa informa informa 2011 IS AN MRI tion in tion in tion in ti in 2:00 PM BATTERY OF THE source source source source RIGHT data data data data KNEE:IN DICATIO NS: Pain and concern for degener ative disease .HISTOR Y: Pain and concern for degener ative disease .TECHNI QUE: Long and short imaging paramet ers were obtaine d in thesagi ttal, coronal and axialor ientati on.Exam ination demonst rates grossly normal morphol ogy and signalc haracte ristics of the medialm eniscus . No discret e tear is seen. Likewis e the lateral meniscu s isintac t. The ligamen ts,exte nsor mechani sm and retinac ulum demonst rate normal course, morphol ogyand signalc haracte ristics . There is a chondra l defect involvi ng the central ,weight -bearin g surface ofthe medial femoral condyle , condyla r aspect. In the coronal orienta tionthi s defect measure sapprox imately 4 mm. In the sagitta l plane this defect measure sapprox imately 5 mm. The lateral compart ment is grossly intact. 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 XR HIP RIGHT AP AND LATERAL Observa Value Referen Units Interpr Notes Date tion ce etation Range TEXT Two-vie No No No No Apr 06 DIAGNOS w informa informa informa informa 2011 IS pelvis tion in tion in tion in tion in 3:35 PM BATTERY and source source source source right data data data data hip: 2.GAIL RISON: 02/19/20 10 and 04/10/[address] pelvis [address] 2INDICA TION: 36-year -old with pain and hip, pelvic region and thigh.F INDINGS :Right hip joint space is normal and similar to contral ateral side. Nosigni ficant degener ativesp urring. Configu ration and bone density of right proxima l femur arenorm al.No abnorma lities of symphys is pubis or sacroil iac joints. There is minimal entheso phytefo rmation bilater al anterio r/super ior iliac spine. Bilater al Essured evices redemon strated .No signifi cant interva l change between exams.I MPRESSI ON:1. Normal study. XR KNEE RIGHT AP LAT INT EXT OBLIQUES AND SUNRISE Observa Value Referen Units Interpr Notes Date tion ce etation Range TEXT Right No No No No Feb 15 DIAGNOS knee 5 informa informa informa informa 2011 IS views: tion in tion in tion in tion in 12:09 BATTERY Mor 19, source source source source AM 2012 data data data data 12:09:2 3 AMHISTO RY: -KNEE PAINIMP RESSION : No signifi cant osseous , joint or soft tissue abnorma lity isseen. MRI LUMBAR SPINE WO CONTRAST Observa Value Referen Units Interpr Notes Date tion ce etation Range TEXT MRI OF No No No No January 19 DIAGNOS THE informa informa informa informa 2011 IS LUMBAR tion in tion in tion in tion in 9:49 AM BATTERY SPINEIN source source source source DICATIO data data data data NS: Low back pain with bilater al radicul ar symptom s, rightgr eater than left.HI STORY: Low back pain with bilater al radicul ar symptom s, right greater than left.TE CHNIQUE : Long and short imaging paramet ers were obtaine d in the [facility] axialor ientati ons.The examina tion demonst rates no fractur es. There are no malalig nments. There is no diffuse marrow abnorma lity. Early hemangi remberto formati on is seen in T11. TheT11- T12, T12-L1, L1-L2 andL2-L 3 levels are intact. There is early facet disease at L3-L4, but thegros s capacit y of thecent ral canal and foramin a is maintai amara. More promine nt facet hypertr ophyas well as earlysp ondylos is is seen at L4-L5, also of questio nable archite cturals ignific ance. The facethy pertrop hy at L5-S1 is of questio nable archite ctural signifi cance.I MPRESSI ON: Early degener ative changes through the mid and lower lumbars pine of questio nablear chitect ural signifi cance. Radiogr aphical ly the most promine nt aspect ofthis patient 'sdisea se is the facet hypertr ophy at L4-L5 and L5-S1. XR CHEST PA AND LATERAL Observa Value Referen Units Interpr Notes Date ti ce etation Range TEXT TWO No No No No January 05 DIAGNOS VIEWS informa informa informa informa 2011 IS OF THE tion in tion in tion in tion in 10:47 BATTERY CHEST source source source source PM January 05, data data data data 2011 10:47:5 8 PMHISTO RY: Pain.CO MPARISO N: Portabl e chest December 10, 2011, 2246 hours.F INDINGS : The heart is normal in size. The lungs are clear of infiltr ate.The costoph renican gles are within normal limits. There is no pleural effusio n. Nopneum othorax .No interva l change from previou s.IMPRE SSION: Normal 2 view chest .
--- OUTSIDE RECORDS SUMMARY | 2017-06-12 18:38 | External Medical Summary Rpt ---
Author Author MCKINLEYVONDA Singh, [employer] Address Unknown Phone Unavailable [...] DEVELOPED AND ITS PERFORMANCE CHARACTERISTICS DETERMINED BY [employer]. IT HAS NOT BEEN CLEARED OR APPROVED BY THE FOOD AND DRUG ADMINISTRATION. PERFORMING SITE: [employer] [address] [place] [address] DIR: MYRON SU MD 01/21/17 NICKEL, BLOOD NICKEL <2.0 ng/mL REF INTERVAL: <2.0 SERUM IS THE PREFERRED SPECIMEN FOR MONITORING NICKEL EXPOSURE. NICKEL ANALYSIS PERFORMED BY INDUCTIVELY COUPLED PLASMA/MASS SPECTROMETRY (ICP/MS). THIS TEST WAS DEVELOPED AND ITS PERFORMANCE CHARACTERISTICS DETERMINED BY [employer]. IT HAS NOT BEEN CLEARED OR APPROVED BY THE FOOD AND DRUG ADMINISTRATION. PERFORMING SITE: [employer] [address] [place] [id number] DIR: MYRON SU MD U Pain Corea-ARUP [...] January 01 Pain Note informa informa informa [facility] 2017 Mgt tion in tion in tion in Enhance 4:31 PM Drug source source source d Panel, data data data Report High using Res/SAJAN either T U link below:\ .br\\.b r\-Dire ct access: https:/ /[email or web address]/?t= [id number]\ .br\\.b r\-Ente r Usernam e, Passwor d: https:/ /[email or web address]\.br \ Usernam e: [id number] \.br\ Passwor d: [id number]\ .br\Per formed by MARLENE arango,\ .br\[address] [place] [address] \. br\www. [employer], Ponce Castro MD - Lab. Directo r U Pain Corea-PRUP Observa Value Referen Units Interpr Notes Date [...] eristic s\.br\d etermin ed by [facility]. The U.S. Food and Drug\.b r\Admin [...] Aug 28 Pain Note informa informa informa [facility] 2016 Mgt tion in tion in tion in Enhance 9:10 PM Drug source source source d Panel, data data data Report High using Res/SAJAN either T U link below:\ .br\\.b r\-Dire ct access: [email or web address]:/ [email or web address]= [email or web address]\ .br\\.b r\-Ente r Usernam e, Passwor d: https:/ /[email or web address]\.br \ Usernam e: [id number] *\.br\ Passwor d: qC=23\. br\Perf ormed by MARLENE arango,\ .br\[address], [facility] [place] [address] \. br\www. [employer], Charlie Hernandez MD - Lab. Directo r [...] of femoroa cetabul ar impinge ment.\. br\ [place] Observa Value Referen Units Interpr Notes Date tion ce etation Range [place] Negativ Negativ No No No December 2 [...] in 6:27 PM source source data data [place]# 0.6 0.0 - x10(3)/ No No December [...] x10(3)/ No No December 29 UYEN 11.0 [facility] informa informa 2015 tion in tion [...] g.\.br\ Promine nt\.br\ plantar heel spur and [place] s tendon entheso phyte again noted. Dorsal\ .br\mid foot\.b r\spurr ing unchang ed.\.br \\.br\I MPRESSI ON:\.br \\.br\1 . Promine nt plantar heel spur, [place] s tendon entheso phyte, and dorsal\ .br\mid [...] Interpr Notes Date tion ce etation Range \.br\[place] No No No No Aug 12 OCEDURE [...] interva ls for this test in the [facility]\.br \Test Directo ry (Posiq). \.br\\. br\Test develop ed and charact eristic s determi amara by [place]\.b r\Labor atories . See Complia nce Stateme nt B: Servergy .OR Productivity/CS Estrone 54.3 No pg/mL No REFEREN Oct 05 (E1) informa informa CE 2013 [Mass/v tion in tion in INTERVA 11:57 olume] source source L: PM in data data [place] Serum by or TMS\.br Plasma \\.br\A ccess complet e set of age- and/or gender- specifi c\.br\r eferenc e interva ls for this test in the [facility]\.br \Test Directo ry (Posiq). \.br\\. br\Test develop ed and charact eristic s determi amara by [place]\.b r\Labor atories . See Complia nce Stateme nt B: Servergy .OR Productivity/CS [place] 152.2 No pg/mL No \.br\Re Oct [...] interva ls for this test in the [facility] or[facility]\.br \Test Directo ry (Posiq). Free T3 Observa Value Referen Units Interpr [...] data data data 25 Novembe r 12, [id number] Pain, compari son 2010The re are 5 [...] data data data data Novembe r 12, [id number] Trauma, pain, no priorsT here is idiopat [...] paramet [place] [facility] [place].The examina tion demonst rates [...]
== END 2017-06-10 23:17 | disposition home or self-care (01) ==
LOC: ER 21:43
PROVIDERS: Emergency Medicine
DX: R10.13 Epigastric pain (principal); R07.9 Chest pain, unspecified; N83.202 Unspecified ovarian cyst, left side; F17.210 Nicotine dependence, cigarettes, uncomplicated; E11.9 Type 2 diabetes mellitus without complications; I10 Essential (primary) hypertension; I25.10 Atherosclerotic heart disease of native coronary artery without angina pectoris; Z79.82 Long term (current) use of aspirin; J44.9 Chronic obstructive pulmonary disease, unspecified

== ENCOUNTER 2017-08-04 20:13 | Emergency (ER) | payer MEDICAID ==
[~2017-08-04] VITALS: Ht 160 cm; Wt 88.5 kg
--- NOTE | 2017-08-04 20:46 | Emergency Room Report ---
History of Present Illness Time Seen by 2039 Presenting Problem in Triage Pt arrived:Walked Presenting Problem:PATIENT REPORTS SHE FEELS "BAD ALL OVER." REPORTS PAIN UNDER LEFT BREAST LEFT RIB PAIN. REPORTS SHE HAS CHRONIC PAIN. STATES SHE HAS A HEADACHE AND JUST "HURTS ALL OVER." PATIENT STATES SHE HAS HAD SYMPTOMS SINCE YESTERDAY. 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 N Clinical Suspician of Infection? N Mental Status: 1 - Regular (Normal Baseline) Sepsis Risk:Possible Sepsis Risk Have you (or family members/close friends) recently traveled outside the [place]? N If Yes, where/when: Have you had exposure to infectious disease within the past month? TB? Other? Specify: Source patient, RN notes reviewed, old records Exam Limitations no limitations Comment hurting allover for the last 2 days with no cough or fever and no rash Cardiac Chest Pain Chest pain indicative of cardiac No Timing/Duration this evening Severity moderate ALLERGIES Coded Allergies: No Known Allergies (11/05/16) Home Medications Active Scripts Aspirin (Aspir-Joslyn) 81 MG PO DAILY #15 ECT Prov: 05/12/15 Ondansetron Hydrochloride (Ondansetron Odt) 4 MG PO Q6HP PRN NAUSEA AND VOMITING #5 Ref 1 Prov: 11/07/16 Reported Medications Atorvastatin Calcium 80 MG PO DAILY #30 TIZANIDINE HCL (Zanaflex) 4 MG NG Q6HP PRN MUSCLE SPASMS ROPINIROLE HCL (Requip 1 Mg) 1 MG PO QHS Lansoprazole (Prevacid) 30 MG PO DAILY ERGOCALCIFEROL (VITAMIN D2) (Vitamin D2) 50,000 IUNITS PO DAILY #8 Lactulose 10 GM PO PRN PRN CONSTIPATION #450 PROMETHAZINE HCL (Phenergan 25MG Tab (Geq)) 25 MG PO Q6HP PRN N/V #30 Levothyroxine Sodium 0.125 MG PO DAILY #60 HYDROCODONE/ACETAMINOPHEN (Vicodin 5-300 MG Tablet) 1 TAB PO PRN PRN BACK PAIN Diclofenac Sodium 75 MG PO DAILY #60 Gabapentin (Gabapentin 600MG) 600 MG PO Q8 #120 History Medical History General CAD? Yes Angina: Yes ND: No Hypertension? Yes Hyperlipidemia? Yes CHF? No DVT? No PE? No COPD? Yes Asthma? Yes Anemia? Yes GERD? No Gastric ulcers? No GI Bleed? No Hernia? No Thyroid Problems? Yes Hypothyroidism? Yes CVA? No Seizures? Yes Diabetes? Yes Insulin Dependent: Yes Insulin Pump: No Home FSBS? Yes Renal Insuffiency? No End Stage Renal Disease? No UTI? Yes Stones? No BPH? No GB Disease: No Nephritic Syndrome? No Asplenia? No Hepatitis? No Sickle Cell Disease? No Arthritis? Yes Migraines? No Cataracts? No Glaucoma? No MRSA? Yes HIV? No TB? No Anxiety? Yes Depression? No Cancer? 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 Respiratory denies cough, denies shortness of breath, denies wheezing Cardiovascular see HPI, denies chest pain, denies syncope, other Gastrointestinal denies abdominal pain, denies diarrhea, denies vomiting Genitourinary denies: dysuria, frequency, hesitancy, hematuria. Musculoskeletal denies back pain, denies joint pain, denies joint swelling, denies neck pain Skin denies rash Psychiatric/Neurological denies headache, denies seizure Physical Exam Vital Signs Vital Signs Date Time Temp Pulse Resp B/P Pulse O2 O2 Flow FiO2 Ox Delivery Rate 08/04 2212 20 08/04 2033 98.3 91 20 147/106 97 - WBC >12,000 or <4,000 or 10% bands? 2 or more SIRS Criteria Met? B/P:147/106 MAP:119 Creatinine >2.0? UA output<0.5ml/kg/hr for 2 hrs? Platelet count >100,000? Lactate >2.0mmol/1? INR >1.2 or PTT > than 60 sec? Evidence of Organ Dysfunction? Provider documented clinical suspician of infection? N Sepsis Criteria Count: 2 Sepsis Risk: Possible Sepsis Risk General Appearance no apparent distress Eye Exam - bilateral eye PERRL, bilateral eye EOMI Ear, Nose, Throat normal ENT inspection Neck supple Respiratory Status No: respiratory distress. Lung Sounds bilateral: lungs clear. Cardiovascular regular rate/rhythm, no gallop, no JVD, no rub, systolic murmur Peripheral Pulses Pulses normal Yes Gastrointestinal soft Extremities normal inspection Strength 4 Upper Ext (L), 4 Upper Ext (R), 4 Lower Ext (L), 4 Lower Ext (R) Neurologic alert, stereotyper apprentice II-XII nml as tested, no motor/sensory deficits Reflexes Reflexes normal No Mental status normal mood/affect Skin intact Medical Decision Making LABS/Meds/Orders Pt receiving controlled substance in ED? No Results/Orders Laboratory Tests 08/04/172124: Sodium 139, Potassium 4.0, Chloride 105, Carbon Dioxide 27, BUN 6 L, Creatinine 0.8, Estimated Creat Clear 127, Estimated GFR (MDRD) 78, Glucose 85, Calcium 9.6 , Total Bilirubin 0.3, AST 39 H, ALT 75, Alkaline Phosphatase 123 H, Creatine Kinase 69, CK-MB (CK-2) Rel Index 1.0, CK and CKMB Interp 0.7, Troponin I < 0.02 , Total Protein 7.3, Albumin 3.5, Globulin 3.8 H, Albumin/Globulin Ratio 0.9 L , WBC 6.8, RBC 4.59, Hgb 11.6 L, Hct 38.1, MCV 83.0, RDW 18.1 H, Plt Count 232 , MPV 9.3, Gran % 52.9, Gran # 3.6, Lymphocytes % 35.7, Monocytes % 4.8, Eosinophils % 5.7, Basophils % 0.9, Lymphocytes # 2.4, Monocytes # 0.3, Eosinophils # 0.4, Basophils # 0.1, PUBS MCHC 30.4 L, MCH 25.3 L Current Medication Orders Sig/Bakari Start time Last Medication Dose Route Stop Time Status Admin Ketorolac 30 MG ONCE ONE 08/04 2215 CAN Tromethamine IV 08/04 2216 Ketorolac 30 MG ONCE ONE 08/04 2215 DC 08/04 Tromethamine IM 08/04 Ketorolac 0 .STK-MED ONE 08/04 2204 DC Tromethamine .ROUTE Sodium Chloride 10 ML PRN PRN 08/04 2045 AC IV 08/05 2037 Orders Procedure Date/time Status CHEST(2 VIEWS-NOT PORTABLE) 08/04 2038 Active 12 LEAD EKG-BESSON (INITIAL) 08/04 2037 Active ELECTROCARDIOGRAM REQUEST 08/04 2037 Active IV SALINE LOCK 08/04 2037 Active CBC WITH AUTO DIFF 08/04 2037 Complete CARDIAC ENZYMES 08/04 2037 Complete CHEM 12 PROFILE 08/04 2037 Complete CM/EKG CM/packager machine Rhythm Normal Sinus Rhythm EKG non-spec. ST/Twave chgs XRAY/CT/US XRAY/CT/US XRAY chest XR interpretation by reviewed by me Xray Results normal/NAD Departure Departure Time of Disposition 2212 Disposition DC Home or Self Care(routine) Clinical Impression Primary Impression: Myalgia Condition STABLE Referrals DAIJA BARAHONA (Family) Patient Instructions DI for Abdominal Muscle Strain, Neuropathic Pain Additional Instructions keep appt with pcp in am Discharge Counseling Counseled pt/family regarding diagnosis, test results, medications/RX, follow up needs ED Critical Care Critical Care No at 2223
[2017-08-04 21:42] LABS: HEMOGLOBIN 11.6 g/dL (12.2-16.2); LYMPH # 2.4 K/mm3 (0.7-4.5); LYMPH % 35.7 % (10-50.0)
[2017-08-04 21:56] LABS: BUN 6 mg/dL (7-18)
[2017-08-04 21:59] LABS: GFR (ESTIMATED) 78 ML/MIN (59-)
[2017-08-04 22:26] VITALS: BP 146/98
--- NOTE | 2017-08-05 05:03 | RADIOLOGY REPORT PS360 ---
CHEST(2 VIEWS-NOT PORTABLE) HISTORY: SOA, LEFT RIB/BREAST PAIN ORDERING PHYSICIAN: Vincent Triplett MD PATIENT AGE: 42 years COMPARISON: 06/10/2017 FINDINGS: There is mild cardiomegaly without failure. No lobar consolidation or collapse.. Pericardial fat pad noted on the right The lungs are clear without infiltrates, suspicious nodules, or pleural effusions. No acute bony abnormalities. IMPRESSION: Cardiomegaly otherwise negative
== END 2017-08-04 22:27 | disposition home or self-care (01) ==
LOC: ER 20:13
PROVIDERS: Emergency Medicine
DX: M79.1 Myalgia (principal); R07.89 Other chest pain; R52 Pain, unspecified; Z86.79 Personal history of other diseases of the circulatory system; E11.9 Type 2 diabetes mellitus without complications; Z79.4 Long term (current) use of insulin; I10 Essential (primary) hypertension; E78.5 Hyperlipidemia, unspecified; J45.909 Unspecified asthma, uncomplicated; E03.9 Hypothyroidism, unspecified